=== PATIENT | female | born 1935 | race Caucasian/White ===

== ENCOUNTER → 2018-04-09 12:31 | Outpatient (CLI) | payer MEDICARE, OTHER, SELFPAY ==
[2018-04-09 12:54] LABS: Add Manual Diff / Slide Review NO; Basophils Percent Auto 0.7 % (0-2); Eosinophils Percent Auto 1.8 % (2-4); Hematocrit 41.1 % (36-46); Lymphocytes Percent Auto 25.3 % (25-40); Mean Corpuscular HGB Conc 34.1 % (30-36); Mean Corpuscular Hemoglobin 32.3 PG (26-34); Mean Corpuscular Volume 94.7 fL (80-100); Monocytes Percent Auto 6.1 % (3-14); Neutrophils Absolute Auto 3900 /uL (3000-5900); Neutrophils Percent Auto 66.1 % (50-75); Platelet Count 229 X10^3/uL (150-400); Red Blood Cell Count 4.34 X10^6/uL (4.0-5.2); Red Cell Distribution Width 13.9 % (11.6-14.8); White Blood Cell Count 5.9 X10^3/uL (4.5-11.0)
[2018-04-09 13:48] LABS: BUN Creatinine Ratio 21.4 (6-22); Blood Urea Nitrogen 15 mg/dL (7-17); Calcium 9.5 mg/dL (8.4-10.2); Carbon Dioxide 29 mmol/L (22-32); Chloride 98 mmol/L (98-107); Estimated Glomerular Filt Rate > 60.0 mL/min (>60); Glucose 124 mg/dL (80-110); HEMOLYSIS < 15 (0-50); Potassium 4.4 mmol/L (3.4-5.1); Sodium 140 mmol/L (137-145)
[2018-04-09 14:00] LABS: Free T3, Triiodothyronine Free 3.05 pg/mL (2.77-5.27); Free T4, Direct Thyroxine 1.31 ng/dL (0.78-2.19)
[2018-04-09 14:13] LABS: Thyroid Stimulating Hormone 3.37 uIU/mL (0.47-4.68)
== END ==
PROVIDERS: Family Provider Internal Medicine; Visit Provider Internal Medicine
DX: I10 Essential (primary) hypertension (principal); R53.83 Other fatigue; E03.9 Hypothyroidism, unspecified
CPT/HCPCS: 36415; 80048; 84439; 84443; 84481; 85025

== ENCOUNTER → 2018-10-31 09:01 | Outpatient (CLI) | payer MEDICARE, OTHER, SELFPAY ==
--- NOTE | 2018-10-31 | DI.MG.S_ITS ---
BILATERAL DIGITAL SCREENING MAMMOGRAM 3D/2D WITH CAD: 10/31/2018 CLINICAL: Routine screening. Family history of breast cancer. Comparison is made to exams dated: 07/24/2016 mammogram, 07/23/2011 mammogram, and 07/09/2010 mammogram - [facility]. The tissue of both breasts is heterogeneously dense. This may lower the sensitivity of mammography. Current study was also evaluated with a Computer Aided Detection (CAD) system. There is a benign biopsy clip in the left breast. There are mole markers on both breasts. No significant masses, calcifications, or other findings are seen in either breast. There has been no significant interval change. IMPRESSION: NEGATIVE There is no mammographic evidence of malignancy. A 1 year screening mammogram is recommended. This exam was interpreted at Station ID: [id number]. NOTE: For mammograms, a report in lay terms will be sent to the patient. Approximately 15% of breast malignancies will not be visualized mammographically. In the management of a palpable breast mass, a negative mammogram must not discourage biopsy of a clinically suspicious lesion. Electronically Signed By: Christiano carpio/toño:11/02/2018 17:59:21 copy to: JOSIAS WEBB letter sent: Normal Exam ACR BI-RADS Category 1: Negative [id number]
== END ==
PROVIDERS: PCP Internal Medicine; Visit Provider Internal Medicine
DX: Z12.31 Encounter for screening mammogram for malignant neoplasm of breast (principal); Z80.3 Family history of malignant neoplasm of breast
CPT/HCPCS: 77063; 77067

== ENCOUNTER → 2019-03-09 08:47 | Outpatient (CLI) | payer MEDICARE, OTHER, SELFPAY ==
--- NOTE | 2019-03-09 | DI.MRI.S_ITS ---
PROCEDURE: MR CERVICAL SPINE WO CON INDICATIONS: ABNORMAL NEUROLOGICAL EXAM TECHNIQUE: Noncontrast sagittal T1 spin echo and T2 fast spin echo, sagittal STIR, foraminal oblique sagittal T2 fast spin echo, and axial gradient echo or T2 fast spin echo through the cervical spine. COMPARISON: [facility], MR, MR HEAD/BRAIN WO CON, 03/09/2019, 9:10. [facility], CT, C-SPINE WITHOUT CONTRAST, 10/24/2008, 12:32. FINDINGS: Image quality: Diagnostic, with note made of motion artifact. Alignment and Curvature: There is normal bony alignment. Bone Marrow: Marrow demonstrates normal overall signal. Spinal Cord: Visualized spinal cord has normal size and signal. No cerebellar tonsillar herniation. Paraspinous Soft Tissues: No paravertebral masses. Prevertebral soft tissues are normal in thickness. C2-C3: No significant abnormality is seen. C3-C4: The disc height is well-preserved. Loss of disc signal is seen at this level. A mild degree of generalized disc osteophyte complex is seen. There is mild bilateral neural foraminal narrowing seen. No significant central canal narrowing is seen. C4-C5: The disc height is well-preserved. Loss of disc signal is seen at this level. There is a mild central disc protrusion seen. There is mild to moderate right-sided and moderate left-sided neural foraminal narrowing seen. Spig-fh-[id number] central canal narrowing is seen, with minimal mass effect upon the ventral spinal cord. C5-C6: Mild loss of disc height is seen. Loss of disc signal is seen. Mild to moderate disc osteophyte complex is seen. There is moderate left-sided and minimal right-sided neural foraminal narrowing seen. Minimal to mild central canal narrowing is seen. C6-C7: Mild loss of disc height is seen. Loss of disc signal is seen. A mild degree of generalized disc osteophyte complex is seen. There is moderate to severe left-sided and mild right-sided neural foraminal narrowing seen. No significant central canal narrowing is seen. C7-T1: No significant abnormality is seen. IMPRESSION: Multiple levels of cervical spine degenerative change are seen, including moderate to severe left-sided neural foraminal narrowing at C6-C7. Dictated by: Jed Newman M.D. on 03/09/2019 at 9:58 Approved by: Jed Newman M.D. on 03/09/2019 at 10:03
--- NOTE | 2019-03-09 | DI.MRI.S_ITS ---
PROCEDURE: MR HEAD/BRAIN WO CON INDICATIONS: ABNORMAL NEUROLOGICAL EXAM TECHNIQUE: Non-contrast axial T1 spin echo, axial T2 fast spin echo, sagittal and axial FLAIR, coronal T2 fast spin echo, axial gradient echo, axial diffusion and ADC through the brain. COMPARISON: [facility], MR, BRAIN WITH AND WITHOUT CONTRAS, 01/03/2009, 10:05. [facility], CT, HEAD WITHOUT CONTRAST, 12/03/2016, 13:39. [facility], MR, MR CERVICAL SPINE WO CON, 03/09/2019, 9:29. [facility], CT, HEAD WITHOUT CONTRAST, 01/02/2009, 4:59. FINDINGS: Image quality: Excellent. CSF spaces: Ventricles appear symmetric in size and shape. Basal cisterns are patent. No extra-axial fluid collections. Brain: Within the right parietal-occipital region, as on series 11 image 65, there is a 4 mm focus of restricted diffusion seen, which demonstrates associated low signal on ADC maps. No intracranial bleeds or mass effects. The previously described likely right-sided meningioma is not seen on this study that is performed without contrast. There is cerebral volume loss for age. There are periventricular and deep white matter chronic small vessel ischemic changes. Brainstem appears normal. No chronic ischemic insults. Normal intravascular flow voids are present. Skull and face: Calvarial bone marrow is normal in signal. Orbits are normal. Note is made of bilateral lens replacements. Sinuses: Sinuses and mastoids are clear. IMPRESSION: There is a 4 mm focus of acute or subacute infarction involving the right peritrigonal white matter within the right parietal occipital region. Relatively prominent brain parenchymal volume loss and chronic small vessel ischemic changes are seen. No findings of acute or subacute infarction can be seen. Dictated by: Jed Newman M.D. on 03/09/2019 at 9:53 Approved by: Jed Newman M.D. on 03/09/2019 at 9:58
== END ==
PROVIDERS: PCP Internal Medicine; Visit Provider Internal Medicine
DX: R29.90 Unspecified symptoms and signs involving the nervous system (principal); R26.89 Other abnormalities of gait and mobility; H57.12 Ocular pain, left eye; M47.812 Spondylosis without myelopathy or radiculopathy, cervical region; M48.02 Spinal stenosis, cervical region
CPT/HCPCS: 70551; 72141

== ENCOUNTER → 2019-03-25 11:39 | Outpatient (CLI) | payer MEDICARE, OTHER, SELFPAY ==
--- NOTE | 2019-03-25 | DI.US.S_ITS ---
PROCEDURE: US CAROTID DOPPLER BI INDICATIONS: CEREBRAL INFARCTION, UNSPECIFIED TECHNIQUE: Color and pulse Doppler interrogation was performed of both carotid systems, with image documentation and velocity measurements. COMPARISON: None. FINDINGS: Stenosis calculations are based on SRU (Society of Radiologists in Ultrasound) criteria. Right side: Brachial blood pressure: 176/100 mm Hg. Common carotid artery peak systolic velocity: 55 cm/sec. Internal carotid artery peak systolic velocity: 65 cm/sec. Internal carotid artery end diastolic velocity: 24 cm/sec. External carotid artery peak systolic velocity: 80 cm/sec. ICA/CCA peak systolic ratio: 1.2. Call scale imaging description: Mild scattered plaque. Percent internal carotid artery stenosis: Less than 50%. Vertebral artery: Flow direction is antegrade. Left side: Brachial blood pressure: 162/101 mm Hg. Common carotid artery peak systolic velocity: 54 cm/sec. Internal carotid artery peak systolic velocity: 83 cm/sec. Internal carotid artery end diastolic velocity: 29 cm/sec. External carotid artery peak systolic velocity: 75 cm/sec. ICA/CCA peak systolic ratio: 1.5. Call scale imaging description: Mild scattered plaque. Percent internal carotid artery stenosis: Less than 50%. Vertebral artery: Flow direction is antegrade. IMPRESSION: Stable less than 50% bilateral internal carotid artery stenosis. Hypertension at time of examination. Dictated by: Jason Jensen [facility] Interpreted: Nae Holguin MD on 03/25/2019 at 13:48 Approved by: Nae Holguin MD, PhD on 03/25/2019 at 14:26
== END ==
PROVIDERS: PCP Internal Medicine; Visit Provider Internal Medicine
DX: I63.9 Cerebral infarction, unspecified (principal); I65.23 Occlusion and stenosis of bilateral carotid arteries; R03.0 Elevated blood-pressure reading, without diagnosis of hypertension
CPT/HCPCS: 93880

== ENCOUNTER 2019-04-07 12:13 | Emergency (ER) | payer MEDICARE, OTHER, SELFPAY ==
[2019-04-07] VITALS (8 sets, daily range): BP systolic 118–192; BP diastolic 58–99; PULSE 56–76; RESP 16–20; TEMP 36.5; O2SAT 96–98; BMI 31.4
--- NOTE | 2019-04-07 12:23 | ED.GENADULT ---
HPI - General Adult General Chief complaint: Hypertension Stated complaint: weak, dizzy, htn Time Seen by Provider: 04/07/19 12:23 Source: patient and family () Mode of arrival: EMS Limitations: no limitations History of Present Illness HPI narrative: 83-year-old female comes to the emergency department with complaint of weakness and dizziness sudden onset about 30 minutes prior to arrival. Patient states she was standing she was cutting bread. She states that she felt like the room was sort of spinning. She felt like she might pass out. She did notice a tunnel vision or white needing. She sat down in the chair. It has been slowly improving. She denies any sudden severe headaches but she has had some mild headache on and off since it occurred. She was hypertensive for EMS in the 200/100 range. Patient denies any vision changes, she denies any issues with speech, lateralizing weakness or new numbness. Patient has not had any chest pain, no shortness of breath,, no chest pressure. No known vomiting. She states no diarrhea constipation or urinary symptoms. She states that she sort of felt dizzy but it did sort of seem like the room was spinning. She states her symptoms have been improving. She is feeling better but still feels ?off?. She had a MRI of her brain which did show a stroke on March 09 that showed right parietal occipital 4 mm focus. She also has bilateral carotid showed stable less than 50% bilateral ICA stenosis. Related Data Home Medications Medication Instructions Recorded Confirmed ASCORBIC ACID (#VITAMIN C) 500 - 1,000 mg PO QDAY #0 09/23/11 CHOLECALCIFEROL (VITAMIN D3) 5,000 units PO BID #0 06/21/13 [VITAMIN B 12] 1,000 mg PO QDAY #0 06/21/13 [lipo-cardia] #0 01/10/17 [turmeric] #0 01/10/17 [D-Trevor] #0 01/02/18 diltiazem HCl 30 mg PO DAILY 04/07/19 04/07/19 ipratropium bromide 1 spray INTRANASAL DIRECTED 04/07/19 04/07/19 levothyroxine 75 mcg PO DAILY 04/07/19 04/07/19 Previous Rx's Medication Instructions Recorded codeine-guaifenesin 5 ml PO QHS #60 ml 11/11/17 Allergies Allergy/AdvReac Type Severity Reaction Status Date / Time adhesive Allergy Mild RASH, Verified 04/07/19 12:34 SEVERE BLISTERS azithromycin Allergy Mild RASH Verified 04/07/19 12:34 bacitracin Allergy Mild RASH Verified 04/07/19 12:34 [From Neosporin ([id number])] cefpodoxime Allergy Mild RASH Verified 04/07/19 12:34 neomycin Allergy Mild RASH Verified 04/07/19 12:34 [From Neosporin ([id number])] polymyxin B Allergy Mild RASH Verified 04/07/19 12:34 [From Neosporin ([id number])] Sulfa (Sulfonamide Allergy Mild RASH Verified 04/07/19 12:34 Antibiotics) tetracycline Allergy Mild RASH, Verified 04/07/19 12:34 SYNCOPE benzonatate Allergy Unknown Verified 04/07/19 12:34 losartan [LOSARTAN] Allergy Unknown Verified 04/07/19 12:34 aspirin AdvReac Intermediate RECTAL Verified 04/07/19 12:34 BLEED levofloxacin AdvReac Intermediate HEEL PAIN Verified 04/07/19 12:34 AND TENDONTITIS carvedilol AdvReac Mild MUSCLE Verified 04/07/19 12:34 WEAKNESS ciprofloxacin AdvReac Mild HEEL PAIN Verified 04/07/19 12:34 metoprolol AdvReac Mild WEAK, Verified 04/07/19 12:34 NAUSEA Review of Systems Review of Systems ROS Unobtainable: All systems reviewed & are unremarkable except as noted in HPI and below Constitutional Denies chills, Denies fever(s), Reports headache(s) (Mild), Denies lethargy and Reports weakness Eyes Denies change in vision ENT Ears, Nose, Mouth, and Throat: Reports vertigo, Reports dizziness, Reports headache(s) (Mild), Denies disequilibrium and Denies other (Facial droop) Cardiovascular Denies chest pain, Denies chest pain at rest, Denies syncope, Denies edema, Reports lightheadedness, Denies palpitations, Denies dyspnea and Denies dyspnea on exertion Respiratory Denies chest congestion, Denies cough, Denies dyspnea and Denies dyspnea on exertion Gastrointestinal Gastrointestinal: Denies abdominal pain, Denies change in bowel habits, Denies diarrhea, Reports nausea and Denies vomiting Genitourinary Denies hematuria, Denies dysuria, Denies flank pain, Denies urinary incontinence, Denies urinary hesitancy and Denies urinary urgency Musculoskeletal Denies abnormal gait, Denies back pain, Denies numbness and Denies tingling Neurologic Reports as per HPI, Denies abnormal movements, Denies abnormal speech, Denies abnormal gait, Reports vertigo, Reports dizziness, Denies syncope, Reports headache(s) (Mild), Denies focal weakness, Denies numbness, Denies sensory deficit, Denies tingling, Denies disequilibrium and Reports weakness Endocrine Denies palpitations PFSH Medical History Hypertension (Acute) Social History Smoking Status: Never smoker Social History Smoking Status: Never smoker Exam Narrative Exam Narrative: GEN: well nourished, well appearing female, alert and oriented x 3, patient appears to be in mild distress. HEENT: Atraumatic, pupils are equal round reactive to light, extraocular movements are intact, nares are clear, TMs are clear with no fluid, there is no conjunctival pallor. Throat is clear without any exudates, erythema, tonsillar enlargement or uvular deviation HEART: Regular rate and rhythm without murmur, clicks, rubs. pulses are equal in upper and lower extremities LUNGS:Lungs clear to auscultation, no wheezes, rales, crackles, chest moves symmetrically ABD:bowel sounds normal, soft, non-tender, no guarding, rebound, rigidity, no masses noted, no hepatosplenomegaly :No CVA tenderness MSCL: Non-tender, no muscle atrophy, muscles strength 5/5 upper and lower extremities, full range of motion. NEURO:CN 2-12 intact, sensation normal, reflexes 2/4 upper and lower extremities. finger nose finger test normal, heel noble test normal, romberg normal Initial Vital Signs Initial Vital Signs: Vital Signs Temperature 97.7 F 04/07/19 12:22 Pulse Rate 76 04/07/19 12:22 Respiratory Rate 20 04/07/19 12:22 Blood Pressure 192/99 H 04/07/19 12:22 Pulse Oximetry 98 04/07/19 12:22 Course Orders Ordered: ED Orders 04/07/19 12:30 Urine Microscopic Stat 04/07/19 12:32 CT head/brain wo con Stat XR chest 1V Stat EKG-12 Lead Stat 04/07/19 12:52 Complete Blood Count AUTO DIFF Stat Comprehensive Metabolic Panel Stat Partial Thromboplastin Time Stat Prothrombin Time INR Stat Troponin I Stat Discontinued Medications Sodium Chloride (Normal Saline 0.9%) 1,000 mls @ 150 mls/hr IV CONT LELE Last Infusion: 04/07/19 16:39 Dose: 0 mls/hr Admin: 04/07/19 12:59 Dose: 150 mls/hr Nitroglycerin (Nitrostat) 0.4 mg SL NOW ONE Stop: 04/07/19 12:36 Last Admin: 04/07/19 12:58 Dose: 0.4 mg Vital Signs - 8 hr 04/07/19 12:22 04/07/19 12:58 04/07/19 13:30 Temperature 97.7 F Pulse Rate 76 67 59 L Respiratory Rate 20 16 Blood Pressure 192/99 H 184/84 H Blood Pressure [Right Arm] 143/75 H Pulse Oximetry 98 96 04/07/19 14:00 04/07/19 14:30 04/07/19 15:00 Temperature Pulse Rate 56 L 56 L 57 L Respiratory Rate 17 17 17 Blood Pressure Blood Pressure [Right Arm] 119/89 130/58 L 118/59 L Pulse Oximetry 98 96 97 04/07/19 15:30 04/07/19 16:42 Temperature Pulse Rate 57 L 60 Respiratory Rate 18 18 Blood Pressure Blood Pressure [Right Arm] 127/62 130/64 Pulse Oximetry 98 98 Medical Decision Making Lab Data Lab results reviewed: Yes I reviewed the patient's lab results. Result diagrams: 04/07/19 12:52 04/07/19 12:52 Lab Results 04/07/19 04/07/19 04/07/19 Range/Units 12:30 12:52 12:52 WBC 5.2 (4.5-11.0) X10^3/uL RBC 4.35 (4.0-5.2) X10^6/uL Hgb 14.2 (12.0-16.0) g/dL Hct 40.9 (36-46) % MCV 94.1 (80-100) fL MCH 32.7 (26-34) PG MCHC 34.8 (30-36) % RDW 13.8 (11.6-14.8) % Plt Count 248 (150-400) X10^3/uL Neut % (Auto) 59.1 (50-75) % Lymph % (Auto) 27.3 (25-40) % [place] % (Auto) 8.4 (3-14) % Eos % (Auto) 4.3 H (2-4) % Baso % (Auto) 0.9 (0-2) % Neut # (Auto) 3100 (9897-3169) /uL Lymph # (Auto) 1400 (5395-4461) /uL [place] # (Auto) 400 (0-900) /uL Eos # (Auto) 200 (0-450) /uL Baso # (Auto) 0 (0-100) /uL PT 12.4 (10.1-12.7) SECONDS INR 1.1 (0.9-1.3) APTT 34 (26.4-36.2) SECONDS Sodium (137-145) mmol/L Potassium (3.4-5.1) mmol/L Chloride (98-107) mmol/L Carbon Dioxide (22-32) mmol/L BUN (7-17) mg/dL Creatinine (0.52-1.04) mg/dL Estimated GFR (>60) mL/min BUN/Creatinine Ratio (6-22) Glucose (80-110) mg/dL Calcium (8.4-10.2) mg/dL Total Bilirubin (0.2-1.3) mg/dL AST (14-36) IU/L ALT (9-52) IU/L Alkaline Phosphatase (38-126) U/L Troponin I (0.01-0.034) ng/mL Total Protein (6.3-8.2) g/dL Albumin (3.5-5.0) g/dL Globulin (1.7-4.1) g/dL Albumin/Globulin Ratio (1.0-2.8) Urine RBC None seen (0-5/HPF) Urine WBC 1-5/hpf (0-5/HPF) Ur Squamous Epith Cells 5-10 /hpf H (0-5/HPF) Urine Bacteria Few (2-10) H (None) Ur Culture Indicated? Culture not indicate Micro UA Comment 04/07/19 Range/Units 12:52 WBC (4.5-11.0) X10^3/uL RBC (4.0-5.2) X10^6/uL Hgb (12.0-16.0) g/dL Hct (36-46) % MCV (80-100) fL MCH (26-34) PG MCHC (30-36) % RDW (11.6-14.8) % Plt Count (150-400) X10^3/uL Neut % (Auto) (50-75) % Lymph % (Auto) (25-40) % [place] % (Auto) (3-14) % Eos % (Auto) (2-4) % Baso % (Auto) (0-2) % Neut # (Auto) (1399-1719) /uL Lymph # (Auto) (9321-2823) /uL [place] # (Auto) (0-900) /uL Eos # (Auto) (0-450) /uL Baso # (Auto) (0-100) /uL PT (10.1-12.7) SECONDS INR (0.9-1.3) APTT (26.4-36.2) SECONDS Sodium 138 (137-145) mmol/L Potassium 3.7 (3.4-5.1) mmol/L Chloride 100 (98-107) mmol/L Carbon Dioxide 31 (22-32) mmol/L BUN 16 (7-17) mg/dL Creatinine 0.70 (0.52-1.04) mg/dL Estimated GFR > 60.0 (>60) mL/min BUN/Creatinine Ratio 22.9 H (6-22) Glucose 110 (80-110) mg/dL Calcium 9.8 (8.4-10.2) mg/dL Total Bilirubin 0.9 (0.2-1.3) mg/dL AST 29 (14-36) IU/L ALT 20 (9-52) IU/L Alkaline Phosphatase 78 (38-126) U/L Troponin I < 0.012 (0.01-0.034) ng/mL Total Protein 8.2 (6.3-8.2) g/dL Albumin 4.6 (3.5-5.0) g/dL Globulin 3.6 (1.7-4.1) g/dL Albumin/Globulin Ratio 1.3 (1.0-2.8) Urine RBC (0-5/HPF) Urine WBC (0-5/HPF) Ur Squamous Epith Cells (0-5/HPF) Urine Bacteria (None) Ur Culture Indicated? Micro UA Comment Urine Dip Bedside Urine Glucose Negative Bedside Urine Bilirubin - Negative Bedside Urine Ketone - Negative Urine Specific [place] 1.015 Bedside Urine Occult Blood - Negative Bedside Urine pH 7.5 Bedside Urine Protein - Negative Bedside Urine Urobilinogen - Negative Bedside Urine Nitrite - Negative Bedside Urine Leukocytes ++ 125 Esterase Point of care testing: Urine Dip Bedside Urine Glucose Negative Bedside Urine Bilirubin - Negative Bedside Urine Ketone - Negative Urine Specific [place] 1.015 Bedside Urine Occult Blood - Negative Bedside Urine pH 7.5 Bedside Urine Protein - Negative Bedside Urine Urobilinogen - Negative Bedside Urine Nitrite - Negative Bedside Urine Leukocytes ++ [address] scan - head: Radiologist's impression: [address] [address] [address] Scan Report Signed Patient: Cecily Bain IMR#: [id number] : [id number]:[id number] Age/Sex: 83 / FDate of Service: 04/07/19 Loc: ED Accession Number: [id number] Procedure: CT head/brain wo con Ordering Provider: Sharyn Kendall D.O. PROCEDURE: CT HEAD/BRAIN WO CON INDICATIONS: vertigo, sudden onset, prior CVA's improving. TECHNIQUE: Noncontrast 4.5 mm thick angled axial sections acquired from the foramen magnum to the vertex, with coronal and sagittal reformats. For radiation dose reduction, the following was used: automated exposure control, adjustment of mA and/or kV according to patient size. COMPARISON: [facility], CT, HEAD WITHOUT CONTRAST, 12/03/2016, 13:39. FINDINGS: Image quality: Excellent. CSF spaces: Basal cisterns are patent. No extra-axial fluid collections. The ventricles are symmetric in size and shape. Brain: No intracranial bleeds or masses. There is cerebral volume loss for age, with resultant ventricular and sulcal prominence. There are periventricular and deep white matter chronic small vessel ischemic changes. There is intracranial internal carotid artery atherosclerosis. Skull and face: Calvarium and visualized facial bones appear intact, without suspicious lesions. Sinuses: Visualized sinuses and mastoids are clear. IMPRESSION: No CT evidence of acute intracranial pathology. Extensive periventricular white matter microangiopathic changes and diffuse atrophy. Dictated by: Elio Martinez M.D. on 04/07/2019 at 13:23 Approved by: Elio Martinez M.D. on 04/07/2019 at 13:38 Chest x-ray: Radiologist's impression: Cecily Bain I 83 F [address] [address] XRay Report Signed Patient: Cecily Bain IMR#: [id number] : [id number]:[id number] Age/Sex: 83 / FDate of Service: 04/07/19 Loc: ED Accession Number: [id number] Procedure: XR chest 1V Ordering Provider: Sharyn Kendall D.O. PROCEDURE: XR CHEST 1V INDICATIONS: vertigo symptoms acute onset. TECHNIQUE: One view of the chest was acquired. COMPARISON: [facility], , CHEST 2 VIEW, 12/06/2016, 12:28. FINDINGS: Surgical changes and devices: None. Lungs and pleura: Lungs are clear. No pleural effusions or pneumothorax. Mediastinum: Mediastinal contours appear normal. Heart size is normal. Bones and chest wall: No suspicious bony lesions. Overlying soft tissues appear unremarkable. IMPRESSION: No evidence acute pulmonary process. Dictated by: Perry Hudson M.D. on 04/07/2019 at 12:52 Approved by: Perry Hudson M.D. on 04/07/2019 at 12:52 ECG Data Attestation: I personally reviewed and interpreted this ECG as follows: Prior ECG tracings: available for review Interpretation: Sinus rhythm, right bundle branch block, left anterior fascicular block. Rate is 68 OR 108 QRS of 171 QTC of 471. Patient's old EKG from 2014 does not show a right bundle branch block. MDM Narrative Medical decision making narrative: Patient's symptoms have resolved. She ambulated to the bathroom without any issue. Lab work does not show any acute abnormalities, head CT did not show any bleed. Chest x-ray does not show any major changes. Patient does not have any changes on her NIH scale. She was hypertensive initially was given 1 dose of nitro her blood pressure has resolved and the improved patient I discussed she could possibly follow the ENT she had some symptoms that were consistent with vertigo. I do not think she is having an acute stroke today. Discussed with patient she feels comfortable following up she feels much better at this time. Discharge Plan Departure Patient Disposition: Home Clinical Impression: Dizziness Discharge Date/Time: 04/07/19 16:45 Interventions: ED Discharge Assessment Last Done: 04/07/19 16:43 Instructions: DI for Dizziness-Nonvertigo Activity Restrictions/Additional Instructions: Follow-up with your primary care physician next 24-48 hours. Call for an appointment. Continue home medications as prescribed. I recommend that you follow up with Neurology and discuss with your physician to see if they can move your appointment sooner. I would also recommend discussing with ENT for any vertigo symptoms they may be helpful for delineating the source of your symptoms. Return to the emergency department for fevers greater 100.4, passing out, suddenly worsening symptoms, new vision changes, new weakness, numbness or difficulty with speech new chest pain or shortness of breath or persistent vomiting or other new or concerning symptoms. Prescriptions: No Action ASCORBIC ACID (#VITAMIN C) 500 - 1,000 mg PO QDAY Qty: 0 RF: 0 CHOLECALCIFEROL (VITAMIN D3) 5,000 units PO BID Qty: 0 RF: 0 [VITAMIN B 12] 1,000 mg PO QDAY Qty: 0 RF: 0 [lipo-cardia] Qty: 0 RF: 0 [turmeric] Qty: 0 RF: 0 codeine-guaifenesin 100 MG/10 MG liquid 5 ml PO QHS Qty: 60 RF: 0 [D-Trevor] Qty: 0 RF: 0 levothyroxine 75 mcg tablet 75 mcg PO DAILY RF: 0 diltiazem HCl 30 mg tablet 30 mg PO DAILY RF: 0 ipratropium bromide 42 mcg (0.06 %) spray,non-aerosol 1 spray Intranasal DIRECTED RF: 0 Referrals: Vinicoi Mancia MD [Physician] - Kailee Garibay MD [Primary Care Provider] -
--- NOTE | 2019-04-07 12:32 | DI.RAD.S_ITS ---
PROCEDURE: XR CHEST 1V INDICATIONS: vertigo symptoms acute onset. TECHNIQUE: One view of the chest was acquired. COMPARISON: [facility], , CHEST 2 VIEW, 12/06/2016, 12:28. FINDINGS: Surgical changes and devices: None. Lungs and pleura: Lungs are clear. No pleural effusions or pneumothorax. Mediastinum: Mediastinal contours appear normal. Heart size is normal. Bones and chest wall: No suspicious bony lesions. Overlying soft tissues appear unremarkable. IMPRESSION: No evidence acute pulmonary process. Dictated by: Perry Hudson M.D. on 04/07/2019 at 12:52 Approved by: Perry Hudson M.D. on 04/07/2019 at 12:52
--- NOTE | 2019-04-07 12:32 | DI.CT.S_ITS ---
PROCEDURE: CT HEAD/BRAIN WO CON INDICATIONS: vertigo, sudden onset, prior CVA's improving. TECHNIQUE: Noncontrast 4.5 mm thick angled axial sections acquired from the foramen magnum to the vertex, with coronal and sagittal reformats. For radiation dose reduction, the following was used: automated exposure control, adjustment of mA and/or kV according to patient size. COMPARISON: [facility], CT, HEAD WITHOUT CONTRAST, 12/03/2016, 13:39. FINDINGS: Image quality: Excellent. CSF spaces: Basal cisterns are patent. No extra-axial fluid collections. The ventricles are symmetric in size and shape. Brain: No intracranial bleeds or masses. There is cerebral volume loss for age, with resultant ventricular and sulcal prominence. There are periventricular and deep white matter chronic small vessel ischemic changes. There is intracranial internal carotid artery atherosclerosis. Skull and face: Calvarium and visualized facial bones appear intact, without suspicious lesions. Sinuses: Visualized sinuses and mastoids are clear. IMPRESSION: No CT evidence of acute intracranial pathology. Extensive periventricular white matter microangiopathic changes and diffuse atrophy. Dictated by: Elio Martinez M.D. on 04/07/2019 at 13:23 Approved by: Elio Martinez M.D. on 04/07/2019 at 13:38
[2019-04-07 12:45] LABS: RBC Urine None Seen (0-5/HPF)
[2019-04-07] MEDS: NITROGLYCERIN 0.4 MG SL TAB SL (12:58)
[2019-04-07] MEDS: SODIUM CHLORIDE 0.9% 1,000 ML 150 ML IV (12:59)
[2019-04-07 13:02] LABS: Add Manual Diff / Slide Review NO; Basophils Absolute Auto 0 /uL (0-100); Basophils Percent Auto 0.9 % (0-2); Eosinophils Absolute Auto 200 /uL (0-450); Eosinophils Percent Auto 4.3 % (2-4); Hematocrit 40.9 % (36-46); Hemoglobin 14.2 g/dL (12.0-16.0); Lymphocytes Absolute Auto 1400 /uL (1100-4500); Lymphocytes Percent Auto 27.3 % (25-40); Mean Corpuscular HGB Conc 34.8 % (30-36); Mean Corpuscular Hemoglobin 32.7 PG (26-34); Mean Corpuscular Volume 94.1 fL (80-100); Monocytes Absolute Auto 400 /uL (0-900); Monocytes Percent Auto 8.4 % (3-14); Neutrophils Absolute Auto 3100 /uL (1500-7000); Neutrophils Percent Auto 59.1 % (50-75); Platelet Count 248 X10^3/uL (150-400); Red Blood Cell Count 4.35 X10^6/uL (4.0-5.2); Red Cell Distribution Width 13.8 % (11.6-14.8); White Blood Cell Count 5.2 X10^3/uL (4.5-11.0)
[2019-04-07 13:11] LABS: INR 1.1 (0.9-1.3); Prothrombin Time 12.4 SECONDS (10.1-12.7)
[2019-04-07 13:14] LABS: PTT Partial Thromboplastin Tim 34 SECONDS (26.4-36.2)
[2019-04-07 13:15] LABS: Alanine Aminotransferase 20 IU/L (9-52); Albumin 4.6 g/dL (3.5-5.0); Albumin Globulin Ratio 1.3 (1.0-2.8); Alkaline Phosphatase 78 U/L (38-126); Aspartate Aminotransferase 29 IU/L (14-36); BUN Creatinine Ratio 22.9 (6-22); Bilirubin Total 0.9 mg/dL (0.2-1.3); Blood Urea Nitrogen 16 mg/dL (7-17); Calcium 9.8 mg/dL (8.4-10.2); Carbon Dioxide 31 mmol/L (22-32); Chloride 100 mmol/L (98-107); Estimated Glomerular Filt Rate > 60.0 mL/min (>60); Globulin 3.6 g/dL (1.7-4.1); Glucose 110 mg/dL (80-110); HEMOLYSIS < 15 (0-50); Potassium 3.7 mmol/L (3.4-5.1); Sodium 138 mmol/L (137-145); Total Protein 8.2 g/dL (6.3-8.2)
[2019-04-07 13:16] LABS: Bacteria Urine Few (2-10); Squamous Epithelial Cell Urine 5-10 /HPF (0-5/HPF); WBC Urine 1-5/HPF (0-5/HPF)
[2019-04-07 13:26] LABS: Troponin I < 0.012 ng/mL (0.01-0.034)
== END 2019-04-07 16:45 | disposition home or self-care (01) ==
PROVIDERS: Emergency Provider Emergency Medicine; PCP Internal Medicine
DX: R42 Dizziness and giddiness (principal); R53.1 Weakness; I10 Essential (primary) hypertension; R51 Headache; Z86.73 Personal history of transient ischemic attack (TIA), and cerebral infarction without residual deficits
CPT/HCPCS: 36591; 70450; 71045; 80053; 81003; 81015; 84484; 85025; 85610; 85730; 93005; 93041; 96360; 96361; 99285

== ENCOUNTER → 2019-04-21 07:41 | Outpatient (CLI) | payer MEDICARE, OTHER, SELFPAY ==
--- NOTE | 2019-04-21 | DI.MRI.S_ITS ---
PROCEDURE: MR ANGIO HEAD WO CON INDICATIONS: HO CVA TECHNIQUE: Noncontrast axial 3-D [id number] MR angiogram, with 3-dimensional maximum intensity projection (MIP) reformats of the internal carotid arteries and posterior circulation then performed. COMPARISON: None. FINDINGS: Image quality: Excellent. Anterior circulation: Intracranial internal carotid arteries demonstrate normal size and intraluminal flow signal. The flow within the paired anterior cerebral arteries is normal and symmetric. The flow within the middle cerebral arteries is normal and symmetric. The anterior communicating artery is seen. No stenoses, occlusions, or aneurysms. Posterior circulation: Visualized portions of the vertebral arteries demonstrate normal caliber, and join to form a normal appearing basilar artery. The flow within the posterior cerebral arteries is normal and symmetric. No stenoses, occlusions, or aneurysms. IMPRESSION: No vascular occlusion, vascular stenosis, vascular dissection or aneurysm. Dictated by: Nae Holguin MD, PhD on 04/21/2019 at 10:55 Approved by: Nae Holguin MD, PhD on 04/21/2019 at 11:02
--- NOTE | 2019-04-21 | DI.MRI.S_ITS ---
PROCEDURE: MR ANGIO NECK W CON INDICATIONS: HO CVA TECHNIQUE: Axial and sagittal TruFISP through the neck. Coronal dynamic MRA after the administration of contrast in the arterial and venous phases, with rotating 3-dimensional maximum intensity projection (MIP) reformats constructed from subtraction images. COMPARISON: None. FINDINGS: Image quality: Excellent. Carotid system: Great vessels demonstrate a conventional anatomy as they arise from the aortic arch. The origins of the common carotid arteries appear normal. The calibers and courses of the common carotid arteries are likewise normal. The carotid bifurcations appear normal bilaterally. The internal carotid arteries are widely patent up to the [place] of [place]. Posterior circulation: The origins of the vertebral arteries are unremarkable. The more superior portions of the vertebral arteries demonstrate normal course and caliber. Vertebral arteries join to form a normal appearing basilar artery. Miscellaneous: Subclavian arteries are patent throughout. Pre-contrast images through the neck demonstrate no soft tissue abnormalities. IMPRESSION: Normal examination without evidence of vascular occlusion, vascular stenosis or vascular dissection. Any quantitative measurements of stenosis were performed using NASCET criteria. Dictated by: Nae Holguin MD, PhD on 04/21/2019 at 11:41 Approved by: Nae Holguin MD, PhD on 04/21/2019 at 11:42
== END ==
PROVIDERS: PCP Internal Medicine; Visit Provider Internal Medicine
DX: Z09 Encounter for follow-up examination after completed treatment for conditions other than malignant neoplasm (principal); Z86.73 Personal history of transient ischemic attack (TIA), and cerebral infarction without residual deficits
CPT/HCPCS: 70544; 70548; A9579

== ENCOUNTER → 2019-05-27 07:04 | Outpatient (CLI) | payer MEDICARE, OTHER, SELFPAY ==
--- NOTE | 2019-05-27 | DI.ECHO.S_ITS ---
[place] +---------+ [facility] +---------+ : : [address] : : : : [id number] : : : : Phone: [phone]+ Echocardiogram Report + + :Name: MARIA G CAMARGO I Study Date: 05/27/2019 Height: 66 in : :[facility] Exam Location: [facility] Weight: 190 lb : : Gender: Female BSA: 2.0 m2 : :: 1935 Age: 83 yrs BP: 140/80 mmHg: :Reason For Study: Stroke : : Performed By: Klaudia Page : :Referring: MINISTERIO TREJO : + + Interpretation Summary 1) Mildly enlarged left ventricle with low normal systolic function (EF 50- 55%). 2) There are no obvious focal wall motion abnormalities noted but poor endocardial definition reduces the sensitivity for the detection of such. 3) Normal right ventricular size and function. 4) No significant valvular abnormalities. 5) Injection of contrast documented no interatrial shunt. 6) Compared to the Echo done 12/20/2016, LV is dilated as above and EF has decreased from 60-65% to 50-55% on this study. Procedure: A two-dimensional transthoracic echocardiogram with color flow and Doppler was performed. The study quality was technically adequate. Comparison is made with the echocardiogram of 12/20/2016. A saline contrast injection was performed to assess for cardiac shunting. The subcostal views were difficult to obtain and are suboptimal in quality. The patient was in normal sinus rhythm during the exam. Left Ventricle: The left ventricle is mildly dilated. There is normal left ventricular wall thickness. The ejection fraction is estimated to be 50-55%. Left ventricular systolic function is low normal. There are no obvious focal wall motion abnormalities noted but poor endocardial definition reduces the sensitivity for the detection of such. Right Ventricle: The right ventricle is normal in size and function. Atria: The left atrial size is normal. The right atrium is severely dilated. There is no Doppler evidence for an interatrial shunt. Injection of contrast documented no interatrial shunt. Mitral Valve: The mitral valve leaflets are slightly calcified. There is mild mitral annular calcification. There is trace mitral regurgitation. Aortic Valve: The aortic valve is trileaflet. The aortic valve opens well. There is trace aortic regurgitation. Tricuspid Valve: The tricuspid valve is normal in structure and function. There is trace tricuspid regurgitation. Pulmonary artery pressures cannot be estimated because of the lack of a measurable TR jet velocity. Pulmonic Valve: The pulmonic valve is not well visualized. There is a trace or physiologic amount of pulmonic regurgitation. Great Vessels: The aortic root is normal size. The ascending aorta is at the upper limits of normal in size. The pulmonary is not well visualized. The inferior vena cava was not visualized. Pericardium/ Pleura There is no pericardial effusion. There is no pleural effusion. MMode/2D Measurements & Calculations LVIDd: 5.3 cm Ao root diam: 3.7 cm LVIDs: 3.8 cm asc Aorta Diam: 3.6 cm FS: 29.0 % EPSS: 1.1 cm IVSd: 0.99 cm LVPWd: 0.72 cm LV ahmadi. diameter/BSA (cm/m^2): 2.7 LV sys. diameter/BSA (cm/m^2): 1.9 LA A2 area: 17.2 cm2 RA long axis: 5.0 cm LA A4 area: 17.7 cm2 RA area: 23.1 cm2 LA length (vol): 4.5 cm RA vol: 91.0 ml LA vol: 57.4 ml RA : 46.5 ml/m2 LA vol index: 29.3 ml/m2 RVD1 (basal): 3.0 cm Doppler Measurements & Calculations Ao V2 max: 101.5 cm/sec LVOT Max Bryan: 68.3 cm/sec Ao V2 mean: 77.8 cm/sec LV V1 max P.9 mmHg Ao max P.1 mmHg LV V1 VTI: 15.1 cm Ao mean P.6 mmHg sev ratio: 0.73 Ao V2 VTI: 20.7 cm MV E max bryan: 35.6 cm/sec TR max bryan: 198.9 cm/sec MV A max bryan: 83.1 cm/sec TR max P.8 mmHg MV E/A: 0.43 PA V2 max: 49.4 cm/sec Med Peak E' Bryan: 3.2 cm/sec PA V2 mean: 35.9 cm/sec E/E' med: 11.1 PA mean P.56 mmHg Lat Peak E' Bryan: 3.9 cm/sec PA Accel Time: 0.14 sec E/E' lat: 9.1 E/e' average: 10.1 MV dec time: 0.49 sec MV P1/2t: 144.5 msec MV P1/2t max bryan: 36.8 cm/sec MVA(P1/2t): 1.5 cm2 Reading Physician:10:10 AM
== END ==
PROVIDERS: PCP Internal Medicine; Visit Provider Psychiatry & Neurology Neurology
DX: R26.89 Other abnormalities of gait and mobility (principal); Z86.73 Personal history of transient ischemic attack (TIA), and cerebral infarction without residual deficits
CPT/HCPCS: 93306

== ENCOUNTER → 2019-07-02 15:27 | Outpatient (CLI) | payer MEDICARE, OTHER, SELFPAY ==
--- NOTE | 2019-07-02 | DI.US.S_ITS ---
PROCEDURE: US PERIPH VENOUS LOW EXTREM RT INDICATIONS: RIGHT LEG EDEMA TECHNIQUE: Real-time imaging, as well as color and pulse Doppler interrogation, were performed of the lower extremity deep veins from the inguinal ligament to the popliteal fossa. COMPARISON: None. FINDINGS: The common femoral, femoral and popliteal veins are normally compressible, and free of intraluminal thrombus. Color and pulse Doppler demonstrate normal phasic intraluminal flow. There is normal augmentation response to distal compression maneuver. IMPRESSION: No evidence of deep vein thrombosis of the right lower extremity. Dictated by: Rosendo Mobley M.D. on 07/02/2019 at 15:37 Approved by: Rosendo Mobley M.D. on 07/02/2019 at 15:41
== END ==
PROVIDERS: PCP Internal Medicine; Visit Provider Internal Medicine
DX: R60.0 Localized edema (principal)
CPT/HCPCS: 93971

== ENCOUNTER → 2019-07-09 09:31 | Outpatient (CLI) | payer MEDICARE, OTHER, SELFPAY ==
[2019-07-09 10:55] LABS: Alanine Aminotransferase 19 IU/L (9-52); Albumin 4.3 g/dL (3.5-5.0); Albumin Globulin Ratio 1.3 (1.0-2.8); Alkaline Phosphatase 75 U/L (38-126); Aspartate Aminotransferase 29 IU/L (14-36); Bilirubin Total 1.2 mg/dL (0.2-1.3); Blood Urea Nitrogen 12 mg/dL (7-17); Calcium 9.1 mg/dL (8.4-10.2); Carbon Dioxide 25 mmol/L (22-32); Chloride 102 mmol/L (98-107); Cholesterol 232 mg/dL (140-199); Estimated Glomerular Filt Rate > 60.0 mL/min (>60); Globulin 3.4 g/dL (1.7-4.1); Glucose 109 mg/dL (80-110); HDL Cholesterol 62 mg/dL (40-60); HEMOLYSIS < 15 (0-50); LDL Cholesterol Calculated 150 mg/dL (<100); Potassium 3.9 mmol/L (3.4-5.1); Sodium 138 mmol/L (137-145); Total Protein 7.7 g/dL (6.3-8.2); Triglycerides 98 mg/dL (35-150)
== END ==
PROVIDERS: PCP Internal Medicine; Visit Provider Internal Medicine
DX: E78.5 Hyperlipidemia, unspecified (principal); I10 Essential (primary) hypertension
CPT/HCPCS: 36415; 80053; 80061

== ENCOUNTER → 2019-08-24 07:50 | Outpatient (CLI) | payer MEDICARE, OTHER, SELFPAY ==
[2019-08-24 09:08] LABS: Alanine Aminotransferase 21 IU/L (9-52); Albumin 4.4 g/dL (3.5-5.0); Albumin Globulin Ratio 1.4 (1.0-2.8); Alkaline Phosphatase 78 U/L (38-126); Aspartate Aminotransferase 30 IU/L (14-36); BUN Creatinine Ratio 21.4 (6-22); Bilirubin Total 0.9 mg/dL (0.2-1.3); Blood Urea Nitrogen 15 mg/dL (7-17); Calcium 9.2 mg/dL (8.4-10.2); Carbon Dioxide 29 mmol/L (22-32); Chloride 99 mmol/L (98-107); Cholesterol 230 mg/dL (140-199); Estimated Glomerular Filt Rate > 60.0 mL/min (>60); Globulin 3.1 g/dL (1.7-4.1); Glucose 111 mg/dL (80-110); HDL Cholesterol 69 mg/dL (40-60); HEMOLYSIS < 15 (0-50); LDL Cholesterol Calculated 142 mg/dL (<100); Potassium 4.1 mmol/L (3.4-5.1); Sodium 137 mmol/L (137-145); Total Protein 7.5 g/dL (6.3-8.2); Triglycerides 96 mg/dL (35-150)
== END ==
PROVIDERS: PCP Internal Medicine; Visit Provider Internal Medicine
DX: I10 Essential (primary) hypertension (principal); E78.5 Hyperlipidemia, unspecified
CPT/HCPCS: 36415; 80053; 80061

== ENCOUNTER → 2019-08-27 10:15 | Outpatient (CLI) | payer MEDICARE, OTHER, SELFPAY ==
[2019-08-27 11:44] LABS: Hemoglobin 14.4 g/dL (12.0-16.0); Mean Corpuscular HGB Conc 34.3 % (30-36); Mean Corpuscular Hemoglobin 32.5 PG (26-34); Mean Corpuscular Volume 94.7 fL (80-100); Red Blood Cell Count 4.44 X10^6/uL (4.0-5.2); Red Cell Distribution Width 14.1 % (11.6-14.8)
[2019-08-27 11:46] LABS: Add Manual Diff / Slide Review YES; Platelet Count 254 X10^3/uL (150-400); White Blood Cell Count 10.5 X10^3/uL (4.5-11.0)
[2019-08-27 11:49] LABS: Neutrophils Absolute Manual 6615 /uL (3000-5900); Total Cells Counted 100
[2019-08-27 11:50] LABS: RBC Morphology Normal Morphology
[2019-08-27 11:57] LABS: HEMOLYSIS < 15 (0-50); Iron 106 ug/dL (37-170)
[2019-08-27 12:08] LABS: Percent Iron Saturation 38 % (15-50); Total Iron Binding Capacity 276 ug/dL (265-497); Transferrin 229 mg/dL (206-381)
[2019-08-27 12:30] LABS: Thyroid Stimulating Hormone 3.42 uIU/mL (0.47-4.68)
[2019-08-27 13:05] LABS: Folate > 20.0 ng/mL (2.76-20.0)
== END ==
PROVIDERS: PCP Internal Medicine; Visit Provider Internal Medicine
DX: R53.83 Other fatigue (principal)
CPT/HCPCS: 36415; 82746; 83540; 83550; 84443; 85025

== ENCOUNTER 2019-09-28 05:55 | Emergency (ER) | payer MEDICARE, OTHER, SELFPAY ==
[2019-09-28 06:02] VITALS: BP 162/76; PULSE 67; RESP 17; TEMP 36.6; O2SAT 99; BMI 30.2
--- NOTE | 2019-09-28 06:07 | DI.CT.S_ITS ---
PROCEDURE: CT HEAD/BRAIN WO CON INDICATIONS: fall with head injury TECHNIQUE: Noncontrast 4.5 mm thick angled axial sections acquired from the foramen magnum to the vertex, with coronal and sagittal reformats. For radiation dose reduction, the following was used: automated exposure control, adjustment of mA and/or kV according to patient size. COMPARISON: [facility], CT, CT HEAD/BRAIN WO CON, 04/07/2019, 13:05. FINDINGS: Image quality: Excellent. CSF spaces: Basal cisterns are patent. No extra-axial fluid collections. The ventricles are symmetric in size and shape. Brain: No intracranial bleeds or masses. There is cerebral volume loss for age, with resultant ventricular and sulcal prominence. There are periventricular and deep white matter chronic small vessel ischemic changes. There is intracranial internal carotid artery atherosclerosis. Skull and face: Calvarium and visualized facial bones appear intact, without suspicious lesions. Sinuses: Small mucous retention cyst versus polyp noted in the right sphenoid sinus. The mastoids are clear. IMPRESSION: No acute intracranial disease process. Dictated by: Nae Holguin MD, PhD on 09/28/2019 at 7:26 Approved by: Nae Holguin MD, PhD on 09/28/2019 at 7:27
--- NOTE | 2019-09-28 06:10 | ED.DIZZY ---
HPI - Dizziness <Slim Navarro, - Last Filed: 09/29/19 00:59> General Chief Complaint: Dizziness Stated Complaint: Fall Time Seen by Provider: 09/28/19 05:56 Source: patient and EMS Mode of arrival: EMS Limitations: no limitations History of Present Illness HPI Narrative: 83-year-old female nonsmoker with history of hypothyroid and PVCs as well as an ongoing evaluation of chronic dizziness presents with a chief complaint of a fall with a head injury. She went to bed feeling fine and woke up feeling fine and as the morning wore on she started feeling a bit off and had some dizziness and nausea. She sat down at her kitchen table and then felt as if she would have to use the restroom, soon after standing up she became increasingly dizzy and fell to the floor. She did not lose consciousness and has full recall. She did hit her head on the way down but denies any other injury. She denies nausea, vomiting or diarrhea. She denies any focal neurologic findings such as numbness, tingling or weakness. She did have the diagnosis of urinary tract infection last week. She takes no blood thinners MD complaint: dizziness and lightheadedness Onset (ago): hour(s) Timing: gradual onset Description: lightheadedness History of similar episodes: Yes History of trauma: Yes Severity: mild Relieving factors: nothing Exacerbating factors: nothing Associated symptoms: denies other symptoms Related Data Home Medications Medication Instructions Recorded Confirmed ASCORBIC ACID (#VITAMIN C) 500 - 1,000 mg PO QDAY #0 09/23/11 CHOLECALCIFEROL (VITAMIN D3) 5,000 units PO BID #0 06/21/13 [VITAMIN B 12] 1,000 mg PO QDAY #0 06/21/13 [lipo-cardia] #0 01/10/17 [turmeric] #0 01/10/17 [D-Trevor] #0 01/02/18 diltiazem HCl 30 mg PO DAILY 04/07/19 04/07/19 ipratropium bromide 1 spray INTRANASAL DIRECTED 04/07/19 04/07/19 levothyroxine 75 mcg PO DAILY 04/07/19 04/07/19 Previous Rx's Medication Instructions Recorded codeine-guaifenesin 5 ml PO QHS #60 ml 11/11/17 Allergies Allergy/AdvReac Type Severity Reaction Status Date / Time adhesive Allergy Mild RASH, Verified 09/28/19 06:45 SEVERE BLISTERS azithromycin Allergy Mild RASH Verified 09/28/19 06:45 bacitracin Allergy Mild RASH Verified 09/28/19 06:45 [From Neosporin ([id number])] cefpodoxime Allergy Mild RASH Verified 09/28/19 06:45 neomycin Allergy Mild RASH Verified 09/28/19 06:45 [From Neosporin ([id number])] polymyxin B Allergy Mild RASH Verified 09/28/19 06:45 [From Neosporin ([id number])] Sulfa (Sulfonamide Allergy Mild RASH Verified 09/28/19 06:45 Antibiotics) tetracycline Allergy Mild RASH, Verified 09/28/19 06:45 SYNCOPE benzonatate Allergy Unknown Verified 09/28/19 06:45 losartan [LOSARTAN] Allergy Unknown Verified 09/28/19 06:45 aspirin AdvReac Intermediate RECTAL Verified 09/28/19 06:45 BLEED levofloxacin AdvReac Intermediate HEEL PAIN Verified 09/28/19 06:45 AND TENDONTITIS carvedilol AdvReac Mild MUSCLE Verified 09/28/19 06:45 WEAKNESS ciprofloxacin AdvReac Mild HEEL PAIN Verified 09/28/19 06:45 metoprolol AdvReac Mild WEAK, Verified 09/28/19 06:45 NAUSEA Review of Systems <Slim Navarro, - Last Filed: 09/29/19 00:59> Constitutional Constitutional: Denies chills, Denies fatigue, Denies fever(s), Denies frequent falls, Denies lethargy and Reports weakness Eyes Eyes: Denies change in vision, Denies eye discharge, Denies irritation and Denies loss of vision ENT Ears, Nose, Mouth, and Throat: Denies change in voice, Denies dizziness, Denies neck pain, Denies sore throat and Denies throat swelling Cardiovascular Cardiovascular: Denies chest pain, Denies irregular heart rhythm, Reports lightheadedness, Denies palpitations, Denies dyspnea, Denies dyspnea on exertion and Denies orthopnea Respiratory Respiratory: Denies cough, Denies dyspnea, Denies dyspnea on exertion and Denies wheezing Gastrointestinal Gastrointestinal: Denies abdominal pain, Denies change in bowel habits, Denies diarrhea, Denies nausea and Denies vomiting Genitourinary Genitourinary: Denies hematuria, Denies flank pain, Denies urinary incontinence and Denies urinary urgency Musculoskeletal Musculoskeletal: Denies back pain, Denies muscle weakness, Denies neck pain, Denies numbness and Denies tingling Integumentary/Breasts Skin/Breast: Denies pruritus, Denies erythema, Denies rash and Denies wounds Neurologic Neurologic: Denies behavioral changes, Denies confusion, Denies dizziness, Denies frequent falls, Denies loss of vision, Denies numbness, Denies tingling and Reports weakness Psychiatric Psychiatric: Denies anxiety, Denies behavioral changes, Denies confusion, Denies depression, Denies homicidal ideation and Denies suicidal ideation Endocrine Endocrine: Denies fatigue, Denies flushing and Denies palpitations Hematologic/Lymphatic Hematologic/Lymphatic: Denies easy bruising Allergic/Immunologic Allergic/Immunologic: Denies urticaria, Denies throat swelling and Denies wheezing Patient History <Slim Navarro DO - Last Filed: 09/29/19 00:59> Medical History Hypertension (Acute) Social History Smoking Status: Never smoker alcohol intake frequency: holidays/special occasions only Substance Use Type: does not use Exam <Slim Navarro DO - Last Filed: 09/29/19 00:59> Narrative Exam Narrative: GENERAL: [83] year old patient appears stated age. Well-nourished, well-developed patient, in mild distress. HEAD: Mild contusion on left forehead EYES: Pupils equal round and reactive. Extraocular motions intact. No scleral icterus. No injection or drainage. ENT: Nose without bleeding, purulent drainage. Throat without erythema, tonsillar hypertrophy or exudate. Airway patent. NECK: Trachea midline. Non tender CARDIOVASCULAR: Regular rate and rhythm without murmurs, gallops, or rubs. RESPIRATORY: Clear to auscultation. Breath sounds equal bilaterally. No wheezes, rales, or rhonchi. GASTROINTESTINAL: Abdomen soft, non-tender, nondistended. EXTREMITIES: No edema or joint tenderness. BACK: Nontender without deformity or crepitance. No flank tenderness. NEURO: AOx3. SKIN: No rash or erythema of visible areas Initial Vital Signs Initial Vital Signs: Vital Signs Temperature 97.9 F 09/28/19 06:02 Pulse Rate 67 09/28/19 06:02 Respiratory Rate 17 09/28/19 06:02 Blood Pressure 162/76 H 09/28/19 06:02 Pulse Oximetry 99 09/28/19 06:02 <Lorie Moreland DO - Last Filed: 09/28/19 09:21> Initial Vital Signs Initial Vital Signs: Vital Signs Temperature 97.9 F 09/28/19 06:02 Pulse Rate 67 09/28/19 06:02 Respiratory Rate 17 09/28/19 06:02 Blood Pressure 162/76 H 09/28/19 06:02 Pulse Oximetry 99 09/28/19 06:02 Course <Slim Navarro DO - Last Filed: 09/29/19 00:59> Course Course Narrative: patient now stating that she has been having episodes of crampy abdominal pain for the past few days, also states that she may have actually passed out. Orders Ordered: Discontinued Medications Sodium Chloride (Normal Saline 0.9%) 1,000 mls @ 150 mls/hr IV CONT LELE Last Infusion: 09/28/19 08:26 Dose: 0 mls/hr Documented by: Infusion: 09/28/19 08:25 Dose: 150 mls/hr Documented by: Admin: 09/28/19 06:27 Dose: 150 mls/hr Documented by: NIURKA Ondansetron HCl (Zofran) 4 mg IV NOW ONE Stop: 09/28/19 06:07 Last Admin: 09/28/19 06:27 Dose: 4 mg Documented by: NIURKA Vital Signs Vital signs: Vital Signs - 8 hr 09/28/19 06:02 09/28/19 07:24 09/28/19 08:33 Temperature 97.9 F Pulse Rate 67 64 Pulse Rate [Orthostatic Lying] 57 L Pulse Rate [Orthostatic Sitting] 60 Pulse Rate [Orthostatic Standing] 80 Respiratory Rate 17 19 Blood Pressure 162/76 H Blood Pressure [Left Arm] 140/64 Blood Pressure [Orthostatic Lying] 148/72 H Blood Pressure [Orthostatic Sitting] 155/76 H Blood Pressure [Orthostatic Standing] 148/88 H Pulse Oximetry 99 98 09/28/19 08:55 Temperature 97.9 F Pulse Rate 63 Pulse Rate [Orthostatic Lying] Pulse Rate [Orthostatic Sitting] Pulse Rate [Orthostatic Standing] Respiratory Rate 15 Blood Pressure 143/88 H Blood Pressure [Left Arm] Blood Pressure [Orthostatic Lying] Blood Pressure [Orthostatic Sitting] Blood Pressure [Orthostatic Standing] Pulse Oximetry 99 <Lorie Moreland DO - Last Filed: 09/28/19 09:21> Orders Ordered: Discontinued Medications Sodium Chloride (Normal Saline 0.9%) 1,000 mls @ 150 mls/hr IV CONT LELE Last Infusion: 09/28/19 08:26 Dose: 0 mls/hr Documented by: Infusion: 09/28/19 08:25 Dose: 150 mls/hr Documented by: Admin: 09/28/19 06:27 Dose: 150 mls/hr Documented by: NIURKA Ondansetron HCl (Zofran) 4 mg IV NOW ONE Stop: 09/28/19 06:07 Last Admin: 09/28/19 06:27 Dose: 4 mg Documented by: NIURKA Vital Signs Vital signs: Vital Signs - 8 hr 09/28/19 06:02 09/28/19 07:24 09/28/19 08:33 Temperature 97.9 F Pulse Rate 67 64 Pulse Rate [Orthostatic Lying] 57 L Pulse Rate [Orthostatic Sitting] 60 Pulse Rate [Orthostatic Standing] 80 Respiratory Rate 17 19 Blood Pressure 162/76 H Blood Pressure [Left Arm] 140/64 Blood Pressure [Orthostatic Lying] 148/72 H Blood Pressure [Orthostatic Sitting] 155/76 H Blood Pressure [Orthostatic Standing] 148/88 H Pulse Oximetry 99 98 09/28/19 08:55 Temperature 97.9 F Pulse Rate 63 Pulse Rate [Orthostatic Lying] Pulse Rate [Orthostatic Sitting] Pulse Rate [Orthostatic Standing] Respiratory Rate 15 Blood Pressure 143/88 H Blood Pressure [Left Arm] Blood Pressure [Orthostatic Lying] Blood Pressure [Orthostatic Sitting] Blood Pressure [Orthostatic Standing] Pulse Oximetry 99 MDM - Dizziness <Slim Navarro DO - Last Filed: 09/29/19 00:59> Lab Data Result diagrams: 09/28/19 06:25 09/28/19 06:25 Labs: Lab Results 09/28/19 09/28/19 09/28/19 Range/Units 06:25 06:25 07:07 WBC 6.9 (4.5-11.0) X10^3/uL RBC 4.29 (4.0-5.2) X10^6/uL Hgb 13.9 (12.0-16.0) g/dL Hct 40.9 (36-46) % MCV 95.3 (80-100) fL MCH 32.4 (26-34) PG MCHC 34.0 (30-36) % RDW 13.9 (11.6-14.8) % Plt Count 243 (150-400) X10^3/uL Neut % (Auto) 73.4 (50-75) % Lymph % (Auto) 17.4 L (25-40) % [place] % (Auto) 5.9 (3-14) % Eos % (Auto) 2.8 (2-4) % Baso % (Auto) 0.5 (0-2) % Neut # (Auto) 5100 (7963-9606) /uL Lymph # (Auto) 1200 (0116-0709) /uL [place] # (Auto) 400 (0-900) /uL Eos # (Auto) 200 (0-450) /uL Baso # (Auto) 0 (0-100) /uL Sodium 141 (137-145) mmol/L Potassium 3.4 (3.4-5.1) mmol/L Chloride 103 (98-107) mmol/L Carbon Dioxide 30 (22-32) mmol/L BUN 13 (7-17) mg/dL Creatinine 0.70 (0.52-1.04) mg/dL Estimated GFR > 60.0 (>60) mL/min BUN/Creatinine Ratio 18.6 (6-22) Glucose 138 H (80-110) mg/dL Calcium 9.2 (8.4-10.2) mg/dL Troponin I < 0.012 (0.01-0.034) ng/mL Urine Color Yellow Urine Appearance Clear Urine pH 8.0 (4.5-8.0) Ur Specific [place] 1.010 (1.000-1.035) Urine Protein Negative (Negative) Urine Glucose (UA) Negative (Negative) g/dL Urine Ketones Negative (NEGATIVE) Urine Occult Blood Negative (Negative) Urine Nitrate Negative (Negative) Urine Bilirubin Negative (NEGATIVE) Urine Urobilinogen 0.2 (0.2) E.U./dL Ur Leukocyte Esterase Negative (NEGATIVE) Urine RBC None seen (0-5/HPF) Urine WBC None seen (0-5/HPF) Ur Squamous Epith Cells 1-5 /hpf (0-5/HPF) Amorphous Sediment 3+ Urine Bacteria Occasional (0-1) (None) Ur Culture Indicated? Cult not indicated ECG Data Attestation: I personally reviewed and interpreted this ECG as follows: Prior ECG tracings: available for review Interpretation: Sinus rhythm with rate 58. Right bundle branch block. Inverted T waves in lateral leads (unchanged from prior) <Lorie Moreland DO - Last Filed: 09/28/19 09:21> Lab Data Attestation: I reviewed the patient's lab results. Labs: Lab Results 09/28/19 09/28/19 09/28/19 Range/Units 06:25 06:25 07:07 WBC 6.9 (4.5-11.0) X10^3/uL RBC 4.29 (4.0-5.2) X10^6/uL Hgb 13.9 (12.0-16.0) g/dL Hct 40.9 (36-46) % MCV 95.3 (80-100) fL MCH 32.4 (26-34) PG MCHC 34.0 (30-36) % RDW 13.9 (11.6-14.8) % Plt Count 243 (150-400) X10^3/uL Neut % (Auto) 73.4 (50-75) % Lymph % (Auto) 17.4 L (25-40) % [place] % (Auto) 5.9 (3-14) % Eos % (Auto) 2.8 (2-4) % Baso % (Auto) 0.5 (0-2) % Neut # (Auto) 5100 (2999-1026) /uL Lymph # (Auto) 1200 (4510-6605) /uL [place] # (Auto) 400 (0-900) /uL Eos # (Auto) 200 (0-450) /uL Baso # (Auto) 0 (0-100) /uL Sodium 141 (137-145) mmol/L Potassium 3.4 (3.4-5.1) mmol/L Chloride 103 (98-107) mmol/L Carbon Dioxide 30 (22-32) mmol/L BUN 13 (7-17) mg/dL Creatinine 0.70 (0.52-1.04) mg/dL Estimated GFR > 60.0 (>60) mL/min BUN/Creatinine Ratio 18.6 (6-22) Glucose 138 H (80-110) mg/dL Calcium 9.2 (8.4-10.2) mg/dL Troponin I < 0.012 (0.01-0.034) ng/mL Urine Color Yellow Urine Appearance Clear Urine pH 8.0 (4.5-8.0) Ur Specific [place] 1.010 (1.000-1.035) Urine Protein Negative (Negative) Urine Glucose (UA) Negative (Negative) g/dL Urine Ketones Negative (NEGATIVE) Urine Occult Blood Negative (Negative) Urine Nitrate Negative (Negative) Urine Bilirubin Negative (NEGATIVE) Urine Urobilinogen 0.2 (0.2) E.U./dL Ur Leukocyte Esterase Negative (NEGATIVE) Urine RBC None seen (0-5/HPF) Urine WBC None seen (0-5/HPF) Ur Squamous Epith Cells 1-5 /hpf (0-5/HPF) Amorphous Sediment 3+ Urine Bacteria Occasional (0-1) (None) Ur Culture Indicated? Cult not indicated Imaging Data CT scan - head: Radiologist's impression: PROCEDURE: CT HEAD/BRAIN WO CON INDICATIONS: fall with head injury TECHNIQUE: Noncontrast 4.5 mm thick angled axial sections acquired from the foramen magnum to the vertex, with coronal and sagittal reformats. For radiation dose reduction, the following was used: automated exposure control, adjustment of mA and/or kV according to patient size. COMPARISON: [facility], CT, CT HEAD/BRAIN WO CON, 04/07/2019, 13:05. FINDINGS: Image quality: Excellent. CSF spaces: Basal cisterns are patent. No extra-axial fluid collections. The ventricles are symmetric in size and shape. Brain: No intracranial bleeds or masses. There is cerebral volume loss for age, with resultant ventricular and sulcal prominence. There are periventricular and deep white matter chronic small vessel ischemic changes. There is intracranial internal carotid artery atherosclerosis. Skull and face: Calvarium and visualized facial bones appear intact, without suspicious lesions. Sinuses: Small mucous retention cyst versus polyp noted in the right sphenoid sinus. The mastoids are clear. IMPRESSION: No acute intracranial disease process. Dictated by: Nae Holguin MD, PhD on 09/28/2019 at 7:26 Abdominal x-ray: Radiologist's impression: PROCEDURE: XR ACUTE ABDOMEN SERIES INDICATIONS: Abdominal pain TECHNIQUE: One view chest and two views of the abdomen were acquired. COMPARISON: None. FINDINGS: Surgical changes and devices: None. Chest: Lungs are clear. Heart size is normal. No pleural effusions. No pneumoperitoneum. Abdomen: Bowel gas pattern is normal. Moderate amount of stool noted throughout the colon. No suspicious calcifications. Visualized solid organ contours appear normal. Bones: No suspicious bony lesions. IMPRESSION: Moderate fecal loading throughout the colon. No acute cardiopulmonary disease process. Dictated by: Nae Holguin MD, PhD on 09/28/2019 at 7:47 MDM Narrative Medical decision making narrative: I received sign-out from Dr. Navarro of seen and evaluated patient myself. She has been ambulatory to the restroom without assistance at least twice. Her abdomen remains relatively soft x-ray is negative. Blood work overall reassuring. She has a history of chronic dizziness he possibly had an acute exacerbation of her chronic dizziness. Does not seem to be a problem at this time. A head CT is negative. She is currently taking antibiotics for UTI her urine shows no sign of UTI at this time I recommend she finished her antibiotics as previously prescribed. Discharge Plan Departure Patient Disposition: Home Clinical Impression: Vertigo Discharge Date/Time: 09/28/19 08:56 Instructions: DI for Dizziness-Nonvertigo Activity Restrictions/Additional Instructions: *You have been diagnosed with vertigo *What to do: At this time blood work head CT, EKG and x-rays are reassuring. This is likely her chronic dizziness that caused the issue today *Continue to take medications as directed Finish antibiotics as previously prescribed until gone *Follow up with your primary care provider in 2-3 days *Return to ER if you should have recurrent falls weakness numbness tingling vision change or any new, worsening or concerning symptoms Prescriptions: No Action ASCORBIC ACID (#VITAMIN C) 500 - 1,000 mg PO QDAY Qty: 0 RF: 0 CHOLECALCIFEROL (VITAMIN D3) 5,000 units PO BID Qty: 0 RF: 0 [VITAMIN B 12] 1,000 mg PO QDAY Qty: 0 RF: 0 [lipo-cardia] Qty: 0 RF: 0 [turmeric] Qty: 0 RF: 0 codeine-guaifenesin 100 MG/10 MG liquid 5 ml PO QHS Qty: 60 RF: 0 [D-Trevor] Qty: 0 RF: 0 levothyroxine 75 mcg tablet 75 mcg PO DAILY RF: 0 diltiazem HCl 30 mg tablet 30 mg PO DAILY RF: 0 ipratropium bromide 42 mcg (0.06 %) spray,non-aerosol 1 spray Intranasal DIRECTED RF: 0 Referrals: Kailee Garibay MD [Primary Care Provider] -
[2019-09-28] MEDS: SODIUM CHLORIDE 0.9% 1,000 ML 150 ML IV (06:27)
[2019-09-28] MEDS: ONDANSETRON 4 MG/2 ML INJ IV (06:27)
[2019-09-28 06:30] LABS: Add Manual Diff / Slide Review NO; Basophils Absolute Auto 0 /uL (0-100); Basophils Percent Auto 0.5 % (0-2); Eosinophils Absolute Auto 200 /uL (0-450); Eosinophils Percent Auto 2.8 % (2-4); Hematocrit 40.9 % (36-46); Hemoglobin 13.9 g/dL (12.0-16.0); Lymphocytes Absolute Auto 1200 /uL (1100-4500); Lymphocytes Percent Auto 17.4 % (25-40); Mean Corpuscular Hemoglobin 32.4 PG (26-34); Mean Corpuscular Volume 95.3 fL (80-100); Monocytes Absolute Auto 400 /uL (0-900); Monocytes Percent Auto 5.9 % (3-14); Neutrophils Absolute Auto 5100 /uL (1500-7000); Neutrophils Percent Auto 73.4 % (50-75); Platelet Count 243 X10^3/uL (150-400); Red Blood Cell Count 4.29 X10^6/uL (4.0-5.2); Red Cell Distribution Width 13.9 % (11.6-14.8); White Blood Cell Count 6.9 X10^3/uL (4.5-11.0)
[2019-09-28 06:41] LABS: BUN Creatinine Ratio 18.6 (6-22); Blood Urea Nitrogen 13 mg/dL (7-17); Calcium 9.2 mg/dL (8.4-10.2); Carbon Dioxide 30 mmol/L (22-32); Chloride 103 mmol/L (98-107); Estimated Glomerular Filt Rate > 60.0 mL/min (>60); Glucose 138 mg/dL (80-110); HEMOLYSIS < 15 (0-50); Potassium 3.4 mmol/L (3.4-5.1); Sodium 141 mmol/L (137-145)
[2019-09-28 06:53] LABS: Troponin I < 0.012 ng/mL (0.01-0.034)
--- NOTE | 2019-09-28 06:59 | DI.RAD.S_ITS ---
PROCEDURE: XR ACUTE ABDOMEN SERIES INDICATIONS: Abdominal pain TECHNIQUE: One view chest and two views of the abdomen were acquired. COMPARISON: None. FINDINGS: Surgical changes and devices: None. Chest: Lungs are clear. Heart size is normal. No pleural effusions. No pneumoperitoneum. Abdomen: Bowel gas pattern is normal. Moderate amount of stool noted throughout the colon. No suspicious calcifications. Visualized solid organ contours appear normal. Bones: No suspicious bony lesions. IMPRESSION: Moderate fecal loading throughout the colon. No acute cardiopulmonary disease process. Dictated by: Nae Holguin MD, PhD on 09/28/2019 at 7:47 Approved by: Nae Holguin MD, PhD on 09/28/2019 at 7:48
[2019-09-28 07:24] VITALS: BP 140/64; PULSE 64; RESP 19; O2SAT 98
[2019-09-28 07:35] LABS: RBC Urine None Seen (0-5/HPF); WBC Urine None Seen (0-5/HPF)
[2019-09-28 07:36] LABS: Appearance Urine UA CLEAR; Bilirubin Urine UA NEGATIVE (NEGATIVE); Color Urine UA YELLOW; Glucose Urine UA NEGATIVE (Negative); Ketones Urine UA NEGATIVE (NEGATIVE); Leukocyte Esterase Urine UA NEGATIVE (NEGATIVE); Nitrite Urine UA NEGATIVE (Negative); Occult Blood Urine UA NEGATIVE (Negative); Protein Urine UA NEGATIVE (Negative); Urobilinogen Urine UA 0.2 E.U./dL (0.2)
[2019-09-28 07:43] LABS: Squamous Epithelial Cell Urine 1-5 /HPF (0-5/HPF)
[2019-09-28 07:44] LABS: Amorphous Sediment Urine 3+; Bacteria Urine Occasional (0-1); Culture Indicated Urine Cult Not Indicated
[2019-09-28 08:33] VITALS: BP 148/72; BP 148/88; BP 155/76; PULSE 57; PULSE 60; PULSE 80
[2019-09-28 08:55] VITALS: BP 143/88; PULSE 63; RESP 15; TEMP 36.6; O2SAT 99
== END 2019-09-28 08:56 | disposition home or self-care (01) ==
PROVIDERS: Emergency Medicine; Emergency Provider Emergency Medicine; PCP Internal Medicine
DX: R42 Dizziness and giddiness (principal); S09.90XA Unspecified injury of head, initial encounter; R10.9 Unspecified abdominal pain; I10 Essential (primary) hypertension; W18.30XA Fall on same level, unspecified, initial encounter
CPT/HCPCS: 36415; 70450; 74022; 80048; 81001; 84484; 85025; 93005; 96361; 96374; 99283; 99285; J2405

== ENCOUNTER → 2019-11-05 12:46 | Outpatient (ROUT) | payer MEDICARE, OTHER, SELFPAY | PROVIDERS: PCP Internal Medicine; Visit Provider Internal Medicine | DX: N39.0 Urinary tract infection, site not specified (principal) | CPT/HCPCS: 87086 ==

== ENCOUNTER 2019-12-23 08:22 | Emergency (ER) | payer MEDICARE, OTHER, SELFPAY ==
[2019-12-23 08:31] VITALS: BP 179/95; PULSE 67; RESP 16; TEMP 36.3; O2SAT 99; BMI 30.2
--- NOTE | 2019-12-23 08:43 | ED_ITS ---
HPI - Fall General Chief Complaint: Fall Stated Complaint: fall Time Seen by Provider: 12/23/19 08:42 Source: family Mode of arrival: Wheelchair History of Present Illness HPI Narrative: CC: Closed head injury with facial abrasions and neck injury in hyperextension HPI: The patient is an 84-year-old female who states that she caught her foot on the [place] chest and fell forward landing striking her face on the carpet. She denies any loss of consciousness but has a headache and complains of neck pain. The patient was transported to the emergency department by her . On arrival she had a cervical collar placed. Patient denies any nausea vomiting numbness or tingling loss of sensation. She denies any recent fever chills or sweats. She has had no palpitations dizziness shortness of breath cough for chest pain. She was not incontinent of urine or stool. She also complained that her right arm was painful in the area of the elbow but she was able to flex and extend her elbow and supinated. She has mild swelling over the with Related Data Home Medications Medication Instructions Recorded Confirmed ASCORBIC ACID (#VITAMIN C) 500 - 1,000 mg PO QDAY #0 09/23/11 CHOLECALCIFEROL (VITAMIN D3) 5,000 units PO BID #0 06/21/13 [VITAMIN B 12] 1,000 mg PO QDAY #0 06/21/13 [lipo-cardia] #0 01/10/17 [turmeric] #0 01/10/17 [D-Trevor] #0 01/02/18 diltiazem HCl 30 mg PO DAILY 04/07/19 04/07/19 ipratropium bromide 1 spray INTRANASAL DIRECTED 04/07/19 04/07/19 levothyroxine 75 mcg PO DAILY 04/07/19 04/07/19 Previous Rx's Medication Instructions Recorded codeine-guaifenesin 5 ml PO QHS #60 ml 11/11/17 cyclobenzaprine 10 mg PO TID PRN #15 tab 12/23/19 naproxen [Naprosyn] 500 mg PO BID PRN #20 tab 12/23/19 Allergies Allergy/AdvReac Type Severity Reaction Status Date / Time adhesive Allergy Mild RASH, Verified 12/23/19 08:31 SEVERE BLISTERS azithromycin Allergy Mild RASH Verified 12/23/19 08:31 bacitracin Allergy Mild RASH Verified 12/23/19 08:31 [From Neosporin ([id number])] cefpodoxime Allergy Mild RASH Verified 12/23/19 08:31 neomycin Allergy Mild RASH Verified 12/23/19 08:31 [From Neosporin ([id number])] polymyxin B Allergy Mild RASH Verified 12/23/19 08:31 [From Neosporin ([id number])] Sulfa (Sulfonamide Allergy Mild RASH Verified 12/23/19 08:31 Antibiotics) tetracycline Allergy Mild RASH, Verified 12/23/19 08:31 SYNCOPE benzonatate Allergy Unknown Verified 12/23/19 08:31 losartan [LOSARTAN] Allergy Unknown Verified 12/23/19 08:31 aspirin AdvReac Intermediate RECTAL Verified 09/28/19 06:45 BLEED levofloxacin AdvReac Intermediate HEEL PAIN Verified 09/28/19 06:45 AND TENDONTITIS carvedilol AdvReac Mild MUSCLE Verified 09/28/19 06:45 WEAKNESS ciprofloxacin AdvReac Mild HEEL PAIN Verified 09/28/19 06:45 metoprolol AdvReac Mild WEAK, Verified 09/28/19 06:45 NAUSEA Review of Systems Review of Systems Narrative: The patient's review of systems were all negative except for those mentioned in the history of present illness. Patient History Medical History Hypertension (Acute) Social History Smoking Status: Never smoker Smoking Status: Never smoker alcohol intake frequency: holidays/special occasions only Substance Use Type: does not use Exam Narrative Exam Narrative: PHYSICAL EXAM: CONSTITUTIONAL: Awake, Alert, Oriented, Coherent, Cooperative in NAD. Does not appear toxic or ill. The patient is sitting upright with a cervical collar on. HEAD: AT/NC the patient has a rug burn abrasion over her right forehead, right maxilla and right nasal bridge. EENT: PERRL, FROM of eyes, no discharge, no nystagmus No drainage from the ears, Tympanic membranes intact bilaterally, clear EAC No epistaxis or nasal drainage Oral mucosa is moist and pink, posterior pharynx is without erythema or exudate. NECK: Supple, no obvious JVD, Trachea is midline without stridor, no palpable LN or masses. SPINE: No gross deformity, no palpable tenderness of the cervical, thoracic, lumbar or sacral spine. No CVA tenderness. THORAX: No deformity, retractions, chest wall tenderness, LUNGS: Clear with symmetrical breath sounds without respiratory distress HEART: Normal heart tones, regular rhythm and rate without murmur. ABDOMEN: Soft, non-tender, normal bowel sounds without guarding, rebound, rigidity or palpable mass EXTREMITIES: No edema, cyanosis, deformity . The patient's right lateral elbow is mildly swollen over the epicondyle and tender to palpation. However she has full flexion and extension of the elbow as well as supination and pronation.. SKIN: No rash, bruising, petechiae or purpura. NEURO: Awake, alert, oriented, conversive, cranial nerves II-XII are symmetrical and normal, moves all 4 extremities Initial Vital Signs Initial Vital Signs: Vital Signs Temperature 97.3 F L 12/23/19 08:31 Pulse Rate 67 12/23/19 08:31 Respiratory Rate 16 12/23/19 08:31 Blood Pressure 179/95 H 12/23/19 08:31 Pulse Oximetry 99 12/23/19 08:31 Course Course Course Narrative: 0957 the patient's chest x-ray is negative for any acute pathology. The x-ray of her elbow reveals no fracture dislocation or pathology. 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 CT of her neck shows no fracture malalignment and CT of her head reveals no intracranial pathology or hemorrhage. 1025: Normal gait. Patient walked to the bathroom without any problems. Orders Ordered: Discontinued Medications Sodium Chloride (Normal Saline 0.9%) 1,000 mls @ 1,000 mls/hr IV BOLUS ONE Stop: 12/23/19 09:42 Last Infusion: 12/23/19 10:45 Dose: 0 mls/hr Documented by: Admin: 12/23/19 09:24 Dose: 1,000 mls/hr Documented by: FAUSTINO Vital Signs Vital signs: Vital Signs - 8 hr 12/23/19 08:31 12/23/19 09:48 Temperature 97.3 F L Pulse Rate 67 67 Respiratory Rate 16 16 Blood Pressure 179/95 H Blood Pressure [Right Arm] 184/93 H Pulse Oximetry 99 96 MDM - Fall Lab Data Result diagrams: 12/23/19 08:55 12/23/19 08:55 Labs: Lab Results 12/23/19 12/23/19 Range/Units 08:55 08:55 WBC 5.2 (4.5-11.0) X10^3/uL RBC 4.65 (4.0-5.2) X10^6/uL Hgb 15.3 (12.0-16.0) g/dL Hct 44.4 (36-46) % MCV 95.6 (80-100) fL MCH 32.8 (26-34) PG MCHC 34.3 (30-36) % RDW 14.0 (11.6-14.8) % Plt Count 266 (150-400) X10^3/uL Neut % (Auto) 61.9 (50-75) % Lymph % (Auto) 27.3 (25-40) % [place] % (Auto) 7.9 (3-14) % Eos % (Auto) 2.2 (2-4) % Baso % (Auto) 0.7 (0-2) % Neut # (Auto) 3200 (1632-5671) /uL Lymph # (Auto) 1400 (9612-6073) /uL [place] # (Auto) 400 (0-900) /uL Eos # (Auto) 100 (0-450) /uL Baso # (Auto) 0 (0-100) /uL Sodium 138 (137-145) mmol/L Potassium 3.9 (3.4-5.1) mmol/L Chloride 103 (98-107) mmol/L Carbon Dioxide 27 (22-32) mmol/L BUN 15 (7-17) mg/dL Creatinine 0.70 (0.52-1.04) mg/dL Estimated GFR > 60.0 (>60) mL/min BUN/Creatinine Ratio 21.4 (6-22) Glucose 124 H (80-110) mg/dL Calcium 9.5 (8.4-10.2) mg/dL Total Bilirubin 1.2 (0.2-1.3) mg/dL AST 34 (14-36) IU/L ALT 18 (<35) IU/L Alkaline Phosphatase 85 (38-126) U/L Total Protein 8.7 H (6.3-8.2) g/dL Albumin 4.8 (3.5-5.0) g/dL Globulin 3.9 (1.7-4.1) g/dL Albumin/Globulin Ratio 1.2 (1.0-2.8) Urine Dip Bedside Urine Glucose Negative Bedside Urine Bilirubin - Negative Bedside Urine Ketone - Negative Urine Specific [place] 1.010 Bedside Urine Occult Blood - Negative Bedside Urine pH 8.0 Bedside Urine Protein - Negative Bedside Urine Urobilinogen - Negative Bedside Urine Nitrite - Negative Bedside Urine Leukocytes - Negative Esterase Discharge Plan Departure Patient Disposition: Home Clinical Impression: Fall Qualifiers: Encounter type: initial encounter Qualified Code(s): W19.XXXA - Unspecified fall, initial encounter Abrasion of face Qualifiers: Encounter type: initial encounter Qualified Code(s): S00.81XA - Abrasion of other part of head, initial encounter Neck strain Qualifiers: Encounter type: initial encounter Qualified Code(s): S16.1XXA - Strain of muscle, fascia and tendon at neck level, initial encounter Closed head injury Qualifiers: Encounter type: initial encounter Qualified Code(s): S09.90XA - Unspecified injury of head, initial encounter Discharge Date/Time: 12/23/19 10:49 Instructions: Whiplash, How to Prevent Falls, DI for Closed Head Injury, DI for Abrasion Activity Restrictions/Additional Instructions: Wash the abrasions of your face and apply a very thin ointment of Neosporin twice a day as needed. Take the medications as prescribed for any pain and discomfort or muscle spasms. If you develop worsening headache troubles with your vision dizziness progressive weakness or you feel like you are going to pass out you need to return to the emergency department. Otherwise follow-up with your primary care physician. Prescriptions: New cyclobenzaprine 10 mg tablet 10 mg PO TID PRN (Reason: muscle spasm) Qty: 15 RF: 0 naproxen [Naprosyn] 500 mg tablet 500 mg PO BID PRN (Reason: pain) Qty: 20 RF: 0 No Action ASCORBIC ACID (#VITAMIN C) 500 - 1,000 mg PO QDAY Qty: 0 RF: 0 CHOLECALCIFEROL (VITAMIN D3) 5,000 units PO BID Qty: 0 RF: 0 [VITAMIN B 12] 1,000 mg PO QDAY Qty: 0 RF: 0 [lipo-cardia] Qty: 0 RF: 0 [turmeric] Qty: 0 RF: 0 codeine-guaifenesin 100 MG/10 MG liquid 5 ml PO QHS Qty: 60 RF: 0 [D-Trevor] Qty: 0 RF: 0 levothyroxine 75 mcg tablet 75 mcg PO DAILY RF: 0 diltiazem HCl 30 mg tablet 30 mg PO DAILY RF: 0 ipratropium bromide 42 mcg (0.06 %) spray,non-aerosol 1 spray Intranasal DIRECTED RF: 0 Referrals: Kailee Garibay MD [Primary Care Provider] -
--- NOTE | 2019-12-23 08:44 | DI.CT.S_ITS ---
PROCEDURE: CT HEAD/BRAIN WO CON INDICATIONS: trip and falllanding on face with neck pain TECHNIQUE: Noncontrast 4.5 mm thick angled axial sections acquired from the foramen magnum to the vertex, with coronal and sagittal reformats. For radiation dose reduction, the following was used: automated exposure control, adjustment of mA and/or kV according to patient size. COMPARISON: [facility], CT, CT HEAD/BRAIN WO CON, 09/28/2019, 6:20. FINDINGS: Image quality: Excellent. CSF spaces: Basal cisterns are patent. No extra-axial fluid collections. The ventricles are symmetric in size and shape. Brain: No intracranial bleeds or masses. There is cerebral volume loss for age, with resultant ventricular and sulcal prominence. There are moderate periventricular and deep white matter chronic small vessel ischemic changes. There is intracranial internal carotid artery atherosclerosis. Skull and face: Calvarium and visualized facial bones appear intact, without suspicious lesions. Sinuses: Visualized sinuses and mastoids are clear. IMPRESSION: 1. Age related volume loss and moderate small vessel ischemic change. 2. No evidence acute stroke, hemorrhage, or mass. Dictated by: Perry Hudson M.D. on 12/23/2019 at 9:06 Approved by: Perry Hudson M.D. on 12/23/2019 at 9:08
--- NOTE | 2019-12-23 08:45 | DI.CT.S_ITS ---
PROCEDURE: CT CERVICAL SPINE WO CON INDICATIONS: trip and falllanding on face with neck pain TECHNIQUE: Noncontrast 3 mm thick sections acquired from the skull base to the T4 level. Sagittal and coronal reformats were then constructed. For radiation dose reduction, the following was used: automated exposure control, adjustment of mA and/or kV according to patient size. COMPARISON: [facility], CT, C-SPINE WITHOUT CONTRAST, 10/24/2008, 12:32. FINDINGS: Image quality: Excellent. Bones: No fractures or dislocations. Visualized superior ribs are intact. S-shaped scoliotic curvature is seen. Degenerative changes are seen, including mild to moderate disc space narrowing at C5-C6 and C6-C7. Partially bridging osteophytes are seen at these levels. Focal degenerative change is also seen involving the C1-C2 interface anteriorly. Milder degenerative changes are seen elsewhere. Soft tissues: Prevertebral soft tissues are normal in thickness. No paravertebral hematomas. Atherosclerotic calcification is noted. No apical pneumothoraces. IMPRESSION: Degenerative changes, without acute fractures. Dictated by: Jed Newman M.D. on 12/23/2019 at 8:13 Approved by: Jed Newman M.D. on 12/23/2019 at 8:15
--- NOTE | 2019-12-23 08:50 | DI.RAD.S_ITS ---
PROCEDURE: XR ELBOW RT 2V INDICATIONS: trip fall and injury of her right elbow TECHNIQUE: 2 views of the elbow were acquired. COMPARISON: [facility], CR, XR CHEST 1V, 12/23/2019, 8:53. [facility], CT, CT CERVICAL SPINE WO CON, 12/23/2019, 8:47. [facility], CT, CT FACIAL BONES WO CON, 12/23/2019, 8:47. [facility], CT, CT HEAD/BRAIN WO CON, 12/23/2019, 8:47. FINDINGS: Bones: No fractures or dislocations. No suspicious bony lesions. Soft tissues: Soft tissue injury is seen posteriorly. There is a joint effusion seen, with an elevated anterior fat-pad. IMPRESSION: Soft tissue injury, without an acute abnormality seen by plain film. There is a joint effusion seen. If there is point tenderness (or other clinical suspicion for a fracture not seen on these images) then a dedicated CT could be considered for further evaluation, as clinically appropriate. Dictated by: Jed Newman M.D. on 12/23/2019 at 8:15 Approved by: Jed Newman M.D. on 12/23/2019 at 8:16
--- NOTE | 2019-12-23 08:53 | DI.CT.S_ITS ---
PROCEDURE: CT FACIAL BONES WO CON INDICATIONS: stretche TECHNIQUE: Noncontrast 2.5 mm thick axial images acquired from the mandible through the frontal sinuses, with coronal and sagittal reformatting. For radiation dose reduction, the following was used: automated exposure control, adjustment of mA and/or kV according to patient size. COMPARISON: None. FINDINGS: Image quality: Excellent. Bones and teeth: Orbital mejia are intact. Sinus mejia show no fracture or deformity. Nasal bones and septum are intact. Visualized portions of the mandible demonstrate no fractures or subluxation. Mild right TMJ degenerative arthritis. Zygomatic arches are intact. Pterygoid plates are intact. Visualized portions of the skull base and auditory canals are intact. Sinuses: Paranasal sinuses are aerated, without fluid levels, mucosal thickening, or mucoceles. Mastoid air cells are aerated. Soft tissues: No edema, masses, or fluid collections. No enlarged lymph nodes. No soft tissue lacerations or debris. Vascular: Visualized vascular structures appear normal in the absence of contrast. Bony vascular foramina and canals are intact. IMPRESSION: No evidence of displaced facial fracture or mandibular fracture. Paranasal sinuses are clear. Mild right TMJ degenerative arthritis. Dictated by: Perry Hudson M.D. on 12/23/2019 at 9:08 Approved by: Perry Hudson M.D. on 12/23/2019 at 9:12
--- NOTE | 2019-12-23 08:55 | DI.RAD.S_ITS ---
PROCEDURE: XR CHEST 1V INDICATIONS: trip and fall landing on her face complaining of neck pain TECHNIQUE: One view of the chest was acquired. COMPARISON: [facility], CR, CHEST 2 VIEW, 01/16/2015, 15:50. [facility], CR, CHEST 1 VIEW, 04/05/2015, 8:19. [facility], CR, CHEST 2 VIEW, 12/06/2016, 12:28. [facility], CR, XR ELBOW RT 2V, 12/23/2019, 8:49. [facility], CT, CT FACIAL BONES WO CON, 12/23/2019, 8:47. [facility], CT, CT CERVICAL SPINE WO CON, 12/23/2019, 8:47. [facility], CT, CT HEAD/BRAIN WO CON, 12/23/2019, 8:47. [facility], CR, XR CHEST 1V, 04/07/2019, 12:37. FINDINGS: Surgical changes and devices: None. Lungs and pleura: Lungs are clear. No pleural effusions or pneumothorax. Mediastinum: The cardiac contours are within normal limits. The aorta demonstrates calcification and tortuosity. Bones and chest wall: Age-appropriate bony degenerative changes are seen. No suspicious bony lesions. Overlying soft tissues appear unremarkable. IMPRESSION: No acute abnormality is seen on this single view chest examination. Dictated by: Jed Newman M.D. on 12/23/2019 at 8:17 Approved by: Jed Newman M.D. on 12/23/2019 at 8:17
[2019-12-23 09:23] LABS: Add Manual Diff / Slide Review NO; Basophils Absolute Auto 0 /uL (0-100); Basophils Percent Auto 0.7 % (0-2); Eosinophils Absolute Auto 100 /uL (0-450); Eosinophils Percent Auto 2.2 % (2-4); Hematocrit 44.4 % (36-46); Hemoglobin 15.3 g/dL (12.0-16.0); Lymphocytes Absolute Auto 1400 /uL (1100-4500); Lymphocytes Percent Auto 27.3 % (25-40); Mean Corpuscular HGB Conc 34.3 % (30-36); Mean Corpuscular Hemoglobin 32.8 PG (26-34); Mean Corpuscular Volume 95.6 fL (80-100); Monocytes Absolute Auto 400 /uL (0-900); Monocytes Percent Auto 7.9 % (3-14); Neutrophils Absolute Auto 3200 /uL (1500-7000); Neutrophils Percent Auto 61.9 % (50-75); Platelet Count 266 X10^3/uL (150-400); Red Blood Cell Count 4.65 X10^6/uL (4.0-5.2); White Blood Cell Count 5.2 X10^3/uL (4.5-11.0)
[2019-12-23] MEDS: SODIUM CHLORIDE 0.9% 1,000 ML 1000 ML IV (09:24)
[2019-12-23 09:33] LABS: Alanine Aminotransferase 18 IU/L (<35); Albumin 4.8 g/dL (3.5-5.0); Albumin Globulin Ratio 1.2 (1.0-2.8); Alkaline Phosphatase 85 U/L (38-126); Aspartate Aminotransferase 34 IU/L (14-36); BUN Creatinine Ratio 21.4 (6-22); Bilirubin Total 1.2 mg/dL (0.2-1.3); Blood Urea Nitrogen 15 mg/dL (7-17); Calcium 9.5 mg/dL (8.4-10.2); Carbon Dioxide 27 mmol/L (22-32); Chloride 103 mmol/L (98-107); Estimated Glomerular Filt Rate > 60.0 mL/min (>60); Globulin 3.9 g/dL (1.7-4.1); Glucose 124 mg/dL (80-110); HEMOLYSIS 21 (0-50); Potassium 3.9 mmol/L (3.4-5.1); Sodium 138 mmol/L (137-145); Total Protein 8.7 g/dL (6.3-8.2)
[2019-12-23 09:48] VITALS: BP 184/93; PULSE 67; RESP 16; O2SAT 96
[2019-12-23 10:46] VITALS: BP 178/86; PULSE 61; O2SAT 96
== END 2019-12-23 10:49 | disposition home or self-care (01) ==
PROVIDERS: Emergency Provider Emergency Medicine; PCP Internal Medicine
DX: S00.81XA Abrasion of other part of head, initial encounter (principal); S16.1XXA Strain of muscle, fascia and tendon at neck level, initial encounter; S09.90XA Unspecified injury of head, initial encounter; W01.0XXA Fall on same level from slipping, tripping and stumbling without subsequent striking against object, initial encounter
CPT/HCPCS: 70450; 70486; 71045; 72125; 73070; 80053; 81003; 85025; 93005; 96360; 99284; 99285

== ENCOUNTER → 2019-12-31 12:55 | Outpatient (ROUT) | payer MEDICARE, OTHER, SELFPAY | PROVIDERS: PCP Internal Medicine; Visit Provider Internal Medicine | DX: R79.89 Other specified abnormal findings of blood chemistry (principal) | CPT/HCPCS: 84443 ==

== ENCOUNTER → 2020-06-09 19:14 | Outpatient (ROUT) | payer MEDICARE, OTHER, SELFPAY ==
[2020-06-09 19:45] LABS: Add Manual Diff / Slide Review NO; Basophils Absolute Auto 0 /uL (0-100); Basophils Percent Auto 0.8 % (0-2); Eosinophils Absolute Auto 200 /uL (0-450); Hematocrit 39.4 % (36-46); Hemoglobin 13.3 g/dL (12.0-16.0); Lymphocytes Absolute Auto 1700 /uL (1100-4500); Lymphocytes Percent Auto 27.7 % (25-40); Mean Corpuscular HGB Conc 33.9 % (30-36); Mean Corpuscular Hemoglobin 32.5 PG (26-34); Mean Corpuscular Volume 95.8 fL (80-100); Monocytes Absolute Auto 500 /uL (0-900); Monocytes Percent Auto 7.7 % (3-14); Neutrophils Absolute Auto 3700 /uL (1500-7000); Neutrophils Percent Auto 60.8 % (50-75); Platelet Count 251 X10^3/uL (150-400); Red Blood Cell Count 4.11 X10^6/uL (4.0-5.2); Red Cell Distribution Width 14.4 % (11.6-14.8)
[2020-06-09 19:48] LABS: Alanine Aminotransferase 16 IU/L (<35); Albumin 4.3 g/dL (3.5-5.0); Albumin Globulin Ratio 1.5 (1.0-2.8); Alkaline Phosphatase 72 U/L (38-126); Aspartate Aminotransferase 29 IU/L (14-36); BUN Creatinine Ratio 40.7 (6-22); Bilirubin Total 0.9 mg/dL (0.2-1.3); Blood Urea Nitrogen 24 mg/dL (7-17); Calcium 9.7 mg/dL (8.4-10.2); Carbon Dioxide 24 mmol/L (22-32); Chloride 103 mmol/L (98-107); Estimated Glomerular Filt Rate > 60.0 mL/min (>60); Globulin 2.9 g/dL (1.7-4.1); Glucose 93 mg/dL (80-110); HEMOLYSIS < 15 (0-50); Potassium 4.2 mmol/L (3.4-5.1); Sodium 136 mmol/L (137-145); Total Protein 7.2 g/dL (6.3-8.2)
[2020-06-09 20:17] LABS: TSH w/ Reflex to FT4 3.17 uIU/mL (0.47-4.68)
== END ==
PROVIDERS: PCP Internal Medicine; Visit Provider Internal Medicine
DX: E03.9 Hypothyroidism, unspecified (principal); R63.4 Abnormal weight loss; R53.83 Other fatigue; I10 Essential (primary) hypertension; N39.41 Urge incontinence
CPT/HCPCS: 80053; 84443; 85025; 87086

== ENCOUNTER → 2020-07-05 11:55 | Outpatient (CLI) | payer MEDICARE, OTHER, SELFPAY ==
[2020-07-05 13:07] LABS: Appearance Urine UA CLOUDY; Bilirubin Urine UA NEGATIVE (NEGATIVE); Color Urine UA YELLOW; Glucose Urine UA NEGATIVE (Negative); Ketones Urine UA NEGATIVE (NEGATIVE); Leukocyte Esterase Urine UA 3+ (NEGATIVE); Nitrite Urine UA NEGATIVE (Negative); Occult Blood Urine UA 3+ (Negative); Protein Urine UA NEGATIVE (Negative); Specific Gravity Urine UA 1.015 (1.000-1.035); Urobilinogen Urine UA 0.2 E.U./dL (0.2)
[2020-07-05 13:13] LABS: Bacteria Urine Many (>30); RBC Urine >100/HPF (0-5/HPF); WBC Urine >100/HPF (0-5/HPF)
== END ==
PROVIDERS: PCP Internal Medicine; Referring Provider Physician Assistant; Visit Provider Physician Assistant
DX: N39.0 Urinary tract infection, site not specified (principal)
CPT/HCPCS: 81001; 87077; 87086; 87186

== ENCOUNTER 2020-09-08 16:10 | Emergency (ER) | payer MEDICARE, OTHER, SELFPAY ==
[2020-09-08 16:18] VITALS: BP 164/110; PULSE 89; RESP 16; TEMP 36.8; O2SAT 97; BMI 27.7
--- NOTE | 2020-09-08 17:12 | DI.CT.S_ITS ---
PROCEDURE: CT HEAD/BRAIN WO CON INDICATIONS: glf TECHNIQUE: Noncontrast 4.5 mm thick angled axial sections acquired from the foramen magnum to the vertex, with coronal and sagittal reformats. For radiation dose reduction, the following was used: automated exposure control, adjustment of mA and/or kV according to patient size. COMPARISON: None. FINDINGS: Image quality: Excellent. CSF spaces: Basal cisterns are patent. No extra-axial fluid collections. Ventricles are normal in size and shape. Brain: No midline shift. No intracranial masses or hemorrhage. Call-white matter interface is normal. Skull and face: Calvarium and visualized facial bones are intact, without suspicious lesions. Subgaleal scalp hematoma in the left prefrontal region. Sinuses: Visualized sinuses and mastoids are clear. IMPRESSION: No acute intracranial abnormality. Scalp hematoma in the left prefrontal region. Dictated by: Saravanan Nelson M.D. on 09/08/2020 at 17:42 Approved by: Saravanan Nelson M.D. on 09/08/2020 at 17:43
--- NOTE | 2020-09-08 17:12 | DI.CT.S_ITS ---
PROCEDURE: CT FACIAL BONES WO CON INDICATIONS: pain, swelling sp fall TECHNIQUE: Noncontrast 2.5 mm thick axial images acquired from the mandible through the frontal sinuses, with coronal and sagittal reformatting. For radiation dose reduction, the following was used: automated exposure control, adjustment of mA and/or kV according to patient size. COMPARISON: None. FINDINGS: Image quality: Excellent. Bones and teeth: Orbital mejia are intact. Sinus mejia show no fracture or deformity. Nasal bones and septum are intact. Visualized portions of the mandible demonstrate no fractures or subluxation. Zygomatic arches are intact. Pterygoid plates are intact. Visualized portions of the skull base and auditory canals are intact. Sinuses: Paranasal sinuses are aerated, without fluid levels, mucosal thickening, or mucoceles. Mastoid air cells are aerated. Soft tissues: Hematoma in the left prefrontal scalp. Otherwise no edema, masses, or fluid collections. No enlarged lymph nodes. No soft tissue lacerations or debris. Vascular: Visualized vascular structures appear normal in the absence of contrast. Bony vascular foramina and canals are intact. IMPRESSION: Pre frontal scalp hematoma. Facial osseous structures are intact. Dictated by: Saravanan Nelson M.D. on 09/08/2020 at 17:46 Approved by: Saravanan Nelson M.D. on 09/08/2020 at 17:47
--- NOTE | 2020-09-08 17:12 | DI.CT.S_ITS ---
PROCEDURE: CT CERVICAL SPINE WO CON INDICATIONS: pain sp fall TECHNIQUE: Noncontrast 3 mm thick sections acquired from the skull base to the T4 level. Sagittal and coronal reformats were then constructed. For radiation dose reduction, the following was used: automated exposure control, adjustment of mA and/or kV according to patient size. COMPARISON: None. FINDINGS: Image quality: Excellent. Bones: No fractures or dislocations. Visualized superior ribs are intact. Soft tissues: Prevertebral soft tissues are normal in thickness. No paravertebral hematomas. No apical pneumothoraces. IMPRESSION: No CT evidence of acute traumatic cervical spine injury. Dictated by: Saravanan Nelson M.D. on 09/08/2020 at 17:45 Approved by: Saravanan Nelson M.D. on 09/08/2020 at 17:46
--- NOTE | 2020-09-08 18:05 | DI.RAD.S_ITS ---
PROCEDURE: XR FOREARM RT 2V INDICATIONS: Pain status post fall TECHNIQUE: 2 views of the forearm were acquired. COMPARISON: None. FINDINGS: Bones: No fractures or dislocations. No suspicious bony lesions. Soft tissues: Soft tissue hematoma adjacent to the distal ulnar diaphysis. No suspicious soft tissue calcifications or masses. IMPRESSION: Soft tissue swelling presumably representing hematoma adjacent to the distal ulnar diaphysis. No fracture. Dictated by: Saravanan Nelson M.D. on 09/08/2020 at 18:37 Approved by: Saravanan Nelson M.D. on 09/08/2020 at 18:38
--- NOTE | 2020-09-08 18:07 | PC.NURSE ---
pt has abrasions on her face, goose egg on her forehead and left forearm. left forearm appears to be a large hematoma. SOPHIA Mckay evaluating pt.
[2020-09-08] MEDS: ACETAMINOPHEN 325 MG TABLET 975 MG PO (18:22)
[2020-09-08] MEDS: TET,DIPH,PERTUSS(ACELL),VAC/PF 0.5 ML SYRINGE IM (18:23)
[2020-09-08] MEDS: TRAMADOL 50 MG TABLET PO (19:14)
[2020-09-08 19:17] VITALS: BP 184/93; PULSE 89; RESP 14; O2SAT 97
--- NOTE | 2020-09-08 19:20 | ED_ITS ---
HPI - Fall <Sharyn Zamora FILM DRYING MACHINE OPERATOR-BC - Last Filed: 09/08/20 20:01> General Chief Complaint: Fall Stated Complaint: fall, hit face, swelling and headache Time Seen by Provider: 09/08/20 17:05 Source: patient and family Mode of arrival: Ambulatory Limitations: no limitations History of Present Illness HPI Narrative: The patient is an 84-year-old female nonsmoker with history of hypertension who presents with her for chief complaint of a ground level fall approximately 4:00 p.m. this afternoon. She had a mechanical fall in the yard, slipping with her foot on grass and fell hitting her face on the cement plantar. She does not know when her last tetanus was. She states she has abrasions all throughout her face, has a headache, feels lightheaded and dizzy. She denies any other pain or trauma initially, then notes that she has lot of bruising on her left forearm. She has not taken anything to feel better. She denies any nausea or vomiting. She initially denies any neck pain but then that her neck slightly hurts. She does not have any trouble opening or closing her mouth or chewing. She denies any chest pain or shortness of breath. She denies any hip pain or abdominal pain. Modified trauma activated upon arrival given patient's age and mechanism. Patient states that vision is within normal limits. Related Data Home Medications Medication Instructions Recorded Confirmed ASCORBIC ACID (#VITAMIN C) 500 - 1,000 mg PO QDAY #0 09/23/11 CHOLECALCIFEROL (VITAMIN D3) 5,000 units PO BID #0 06/21/13 [VITAMIN B 12] 1,000 mg PO QDAY #0 06/21/13 [lipo-cardia] #0 01/10/17 [turmeric] #0 01/10/17 [D-Trevor] #0 01/02/18 diltiazem HCl 30 mg PO DAILY 04/07/19 04/07/19 ipratropium bromide 1 spray INTRANASAL DIRECTED 04/07/19 04/07/19 levothyroxine 75 mcg PO DAILY 04/07/19 04/07/19 Previous Rx's Medication Instructions Recorded codeine-guaifenesin 5 ml PO QHS #60 ml 11/11/17 cyclobenzaprine 10 mg PO TID PRN #15 tab 12/23/19 naproxen [Naprosyn] 500 mg PO BID PRN #20 tab 12/23/19 tramadol 50 mg PO Q8H PRN #10 tab 09/08/20 Allergies Allergy/AdvReac Type Severity Reaction Status Date / Time adhesive Allergy Mild RASH, Verified 12/23/19 08:31 SEVERE BLISTERS azithromycin Allergy Mild RASH Verified 12/23/19 08:31 bacitracin Allergy Mild RASH Verified 12/23/19 08:31 [From Neosporin ([id number])] cefpodoxime Allergy Mild RASH Verified 12/23/19 08:31 neomycin Allergy Mild RASH Verified 12/23/19 08:31 [From Neosporin ([id number])] polymyxin B Allergy Mild RASH Verified 12/23/19 08:31 [From Neosporin ([id number])] Sulfa (Sulfonamide Allergy Mild RASH Verified 12/23/19 08:31 Antibiotics) tetracycline Allergy Mild RASH, Verified 12/23/19 08:31 SYNCOPE benzonatate Allergy Unknown Verified 12/23/19 08:31 losartan [LOSARTAN] Allergy Unknown Verified 12/23/19 08:31 aspirin AdvReac Intermediate RECTAL Verified 09/28/19 06:45 BLEED levofloxacin AdvReac Intermediate HEEL PAIN Verified 09/28/19 06:45 AND TENDONTITIS carvedilol AdvReac Mild MUSCLE Verified 09/28/19 06:45 WEAKNESS ciprofloxacin AdvReac Mild HEEL PAIN Verified 09/28/19 06:45 metoprolol AdvReac Mild WEAK, Verified 09/28/19 06:45 NAUSEA Review of Systems <MADELINE Ambrose-BC - Last Filed: 09/08/20 20:01> Review of Systems Narrative: GENERAL: Denies chills, fatigue, malaise, fever, sweats. HEENT: Denies sinus pain, ear pain, sore throat, difficulty swallowing, dizziness. RESPIRATORY: Denies dyspnea, cough, wheezing, hemoptysis, sputum. CARDIOVASCULAR: Denies chest pain, palpitations, orthopnea, edema, GASTROINTESTINAL: Denies nausea, vomiting, abdominal pain, diarrhea, constipati on, melena. : Denies dysuria, frequency, incontinence, hematuria, urinary retention. MUSCULOSKELETAL: See HPI SKIN: See HPI NEUROLOGIC: Denies weakness, headache, numbness, change in speech, confusion, seizures, incoordination. PSYCHIATRIC: No concerning psychosocial issues. 12 point review of systems is negative except for those stated above Patient History <LYNSEY Ambrose - Last Filed: 09/08/20 20:01> Medical History Hypertension (Acute) Social History Smoking Status: Never smoker Smoking Status: Never smoker alcohol intake frequency: holidays/special occasions only Substance Use Type: does not use Exam <LYNSEY Ambrose - Last Filed: 09/08/20 20:01> Narrative Exam Narrative: GENERAL: This is a well-nourished, well-developed patient, in mild distress. HEAD: Atraumatic. Normocephalic. No temporal or scalp tenderness. EYES: Pupils equal round and reactive. Extraocular motions intact. No scleral icterus. No injection or drainage. Periorbital ecchymosis noted left side. ENT: Nose without bleeding, purulent drainage or septal hematoma. Throat without erythema, tonsillar hypertrophy or exudate. Uvula midline. Airway patent. Able to open and close mouth well. No trismus. NECK: Trachea midline. No JVD or lymphadenopathy. Supple, nontender, no meningeal signs. CARDIOVASCULAR: Regular rate and rhythm RESPIRATORY: Clear to auscultation. Breath sounds equal bilaterally. No wheezes, rales, or rhonchi. No cough. No increased respiratory effort. No accessory muscle use. GASTROINTESTINAL: Abdomen soft, non-tender, nondistended. No hepato- splenomegaly, or palpable masses. No guarding. EXTREMITIES: No clubbing, cyanosis, or edema. No joint tenderness, effusion, or edema noted. BACK: Pain to C-spine palpation that is midline. No palpable step-offs or deformities. TN L-spine are Nontender without deformity or crepitance. No flank tenderness. NEURO: AOx3. Interactive. Age appropriate. Stable gait. SKIN: Abrasions noted along left side of face, left forehead down left maxilla left lip left side of chin. No linear lacerations. Hematoma forming on left forehead. Two by 3 cm hematoma noted on left forearm. Initial Vital Signs Initial Vital Signs: Vital Signs Temperature 98.3 F 09/08/20 16:18 Pulse Rate 89 09/08/20 16:18 Respiratory Rate 16 09/08/20 16:18 Blood Pressure 164/110 H 09/08/20 16:18 Pulse Oximetry 97 09/08/20 16:18 <Lorie Moreland DO - Last Filed: 09/09/20 07:43> Initial Vital Signs Initial Vital Signs: Vital Signs Temperature 98.3 F 09/08/20 16:18 Pulse Rate 89 09/08/20 16:18 Respiratory Rate 16 09/08/20 16:18 Blood Pressure 164/110 H 09/08/20 16:18 Pulse Oximetry 97 09/08/20 16:18 Scores <LYNSEY Ambrose - Last Filed: 09/08/20 20:01> [place] CT Head Rule Age <16 years old: No Patient on blood thinners: No Seizure after injury: No Exclusion: Patient NOT Excluded, Proceed to next steps GCS < 15 at 2 hr post trauma: No Suspected open or depressed skull fracture: No Any sign of basilar skull fracture (hemotympanum, raccoon eyes, Sepulveda's sign, CSF michael-/rhinorrhea): No Two or more episodes of vomiting: No Age greater or equal to 65 years: Yes Retrograde amnesia to the event greater or equal to 30 min: No Dangerous Mechanism (pedestrian vs. mv, occupant ejected from mv, fall from >3 ft or > 5 stairs): No Recommendation: Consider CT. The [place] Head CT Rule cannot rule out need for Imaging. GCS Ana coma scale eye opening: Spontaneous Ana coma scale verbal response: Orientated Ana coma scale motor response: Obey commands Ana coma scale total score: 15 Course <LYNSEY Ambrose - Last Filed: 09/08/20 20:01> Orders Ordered: Discontinued Medications Acetaminophen (Tylenol) 975 mg PO NOW ONE Stop: 09/08/20 18:06 Last Admin: 09/08/20 18:22 Dose: 975 mg Documented by: SOURAV Diphtheria/Tetanus/Acell Pertussis (Adacel) 0.5 ml IM .ONCE ONE Stop: 09/08/20 18:06 Last Admin: 09/08/20 18:23 Dose: 0.5 ml Documented by: RSTONE Tramadol HCl (Ultram) 50 mg PO NOW ONE Stop: 09/08/20 18:58 Last Admin: 09/08/20 19:14 Dose: 50 mg Documented by: KGALLAG Vital Signs Vital signs: Vital Signs - 8 hr 09/08/20 16:18 09/08/20 19:17 Temperature 98.3 F Pulse Rate 89 89 Respiratory Rate 16 14 Blood Pressure 164/110 H 184/93 H Pulse Oximetry 97 97 <Lorie Moreland DO - Last Filed: 09/09/20 07:43> Orders Ordered: Discontinued Medications Acetaminophen (Tylenol) 975 mg PO NOW ONE Stop: 09/08/20 18:06 Last Admin: 09/08/20 18:22 Dose: 975 mg Documented by: SOURAV Diphtheria/Tetanus/Acell Pertussis (Adacel) 0.5 ml IM .ONCE ONE Stop: 09/08/20 18:06 Last Admin: 09/08/20 18:23 Dose: 0.5 ml Documented by: OLGAE Tramadol HCl (Ultram) 50 mg PO NOW ONE Stop: 09/08/20 18:58 Last Admin: 09/08/20 19:14 Dose: 50 mg Documented by: KGMYRAAG Vital Signs Vital signs: Vital Signs - 8 hr 09/08/20 16:18 09/08/20 19:17 Temperature 98.3 F Pulse Rate 89 89 Respiratory Rate 16 14 Blood Pressure 164/110 H 184/93 H Pulse Oximetry 97 97 MDM - Fall <LYNSEY Ambrose - Last Filed: 09/08/20 20:01> Imaging Data Extremity x-ray #1: Radiologist's Impression: [address] [place] [id number] XRay Report Signed Patient: Cecily Bain [facility]#: [id number] : 8Acct:[id number] Age/Sex: 84 / FDate of Service: 09/08/20 Loc: ED Accession Number: [id number] Procedure: XR forearm LT 2V Ordering Provider: Sharyn Zamora PROCEDURE: XR FOREARM RT 2V INDICATIONS: Pain status post fall TECHNIQUE: 2 views of the forearm were acquired. COMPARISON: None. FINDINGS: Bones: No fractures or dislocations. No suspicious bony lesions. Soft tissues: Soft tissue hematoma adjacent to the distal ulnar diaphysis. No suspicious soft tissue calcifications or masses. IMPRESSION: Soft tissue swelling presumably representing hematoma adjacent to the distal ulnar diaphysis. No fracture. Dictated by: Saravanan Nelson M.D. on 09/08/2020 at 18:37 Approved by: Saravanan Nelson M.D. on 09/08/2020 at 18:38 CT scan - head: Radiologist's Impression: [address] [place] [id number] Scan Report Signed Patient: Cecily Bain I[facility]#: [id number] : 8Acct:[id number] Age/Sex: 84 / FDate of Service: 09/08/20 Loc: ED Accession Number: [id number] Procedure: CT head/brain wo con Ordering Provider: Sharyn Zamora PROCEDURE: CT HEAD/BRAIN WO CON INDICATIONS: glf TECHNIQUE: Noncontrast 4.5 mm thick angled axial sections acquired from the foramen magnum to the vertex, with coronal and sagittal reformats. For radiation dose reduction, the following was used: automated exposure control, adjustment of mA and/or kV according to patient size. COMPARISON: None. FINDINGS: Image quality: Excellent. CSF spaces: Basal cisterns are patent. No extra-axial fluid collections. Ventricles are normal in size and shape. Brain: No midline shift. No intracranial masses or hemorrhage. Call-white matter interface is normal. Skull and face: Calvarium and visualized facial bones are intact, without suspicious lesions. Subgaleal scalp hematoma in the left prefrontal region. Sinuses: Visualized sinuses and mastoids are clear. IMPRESSION: No acute intracranial abnormality. Scalp hematoma in the left prefrontal region. Dictated by: Saravanan Nelson M.D. on 09/08/2020 at 17:42 Approved by: Saravanan Nelson M.D. on 09/08/2020 at 17:[address]: Radiologist's Impression: [address] [place] [id number] [address] Scan Report Signed Patient: Cecily Bain [facility]#: [id number] : 8Acct:[id number] Age/Sex: 84 / FDate of Service: 09/08/20 Loc: ED Accession Number: [id number] Procedure: CT facial bones wo con Ordering Provider: Sera,Sharyn FILM DRYING MACHINE OPERATOR-BC PROCEDURE: CT FACIAL BONES WO CON INDICATIONS: pain, swelling sp fall TECHNIQUE: Noncontrast 2.5 mm thick axial images acquired from the mandible through the frontal sinuses, with coronal and sagittal reformatting. For radiation dose reduction, the following was used: automated exposure control, adjustment of mA and/or kV according to patient size. COMPARISON: None. FINDINGS: Image quality: Excellent. Bones and teeth: Orbital mejia are intact. Sinus mejia show no fracture or deformity. Nasal bones and septum are intact. Visualized portions of the mandible demonstrate no fractures or subluxation. Zygomatic arches are intact. Pterygoid plates are intact. Visualized portions of the skull base and auditory canals are intact. Sinuses: Paranasal sinuses are aerated, without fluid levels, mucosal thickening, or mucoceles. Mastoid air cells are aerated. Soft tissues: Hematoma in the left prefrontal scalp. Otherwise no edema, masses, or fluid collections. No enlarged lymph nodes. No soft tissue lacerations or debris. Vascular: Visualized vascular structures appear normal in the absence of contrast. Bony vascular foramina and canals are intact. IMPRESSION: Pre frontal scalp hematoma. Facial osseous structures are intact. Dictated by: Saravanan Nelson M.D. on 09/08/2020 at 17:46 Approved by: Saravanan Nelson M.D. on 09/08/2020 at 17:47 CT - cervical spine: Radiologist's Impression: [address] [place] [address] CT Scan Report Signed Patient: Cecily Bain [facility]#: [id number] : 8Acct:[id number] Age/Sex: 84 / FDate of Service: 09/08/20 Loc: ED Accession Number: [id number] Procedure: CT cervical spine wo con Ordering Provider: Sharyn Zamora-ALYSON PROCEDURE: CT CERVICAL SPINE WO CON INDICATIONS: pain sp fall TECHNIQUE: Noncontrast 3 mm thick sections acquired from the skull base to the T4 level. Sagittal and coronal reformats were then constructed. For radiation dose reduction, the following was used: automated exposure control, adjustment of mA and/or kV according to patient size. COMPARISON: None. FINDINGS: Image quality: Excellent. Bones: No fractures or dislocations. Visualized superior ribs are intact. Soft tissues: Prevertebral soft tissues are normal in thickness. No paravertebral hematomas. No apical pneumothoraces. IMPRESSION: No CT evidence of acute traumatic cervical spine injury. Dictated by: Saravanan Nelson M.D. on 09/08/2020 at 17:45 Approved by: Saravanan Nelson M.D. on 09/08/2020 at 17:46 [facility] Narrative Medical decision making narrative: The patient is an 84-year-old female who presents with a chief complaint of facial head and neck pain after ground level fall hitting her face on the cement plantar. Modified trauma activated upon arrival. Head CT is negative. Patient was placed in a collar and CT of her C- spine is negative. Facial CT also negative. No lacerations that need closure, discussed monitor for signs and symptoms of abrasion. Forearm x-ray also negative. Patient denies anything, overall does have a reassuring exam. She is given Tylenol and tramadol for pain. I discussed at length rest, ice, monitoring for any acute concerns and follow up with primary care provider. Encouraged rest of the few days. Given her symptoms I do believe that she has a concussion at this point time, encouraged rest and taking it easy. Encouraged follow-up with primary care provider in the next few days as well as came back to ER for acute concerns. Patient also received tetanus that she is unsure of her last tetanus state. No questions or concerns upon discharge states understanding of return precautions as well as follow-up care. Discharge Plan Departure Patient Disposition: Home Clinical Impression: Fall from ground level, Abrasion Concussion without loss of consciousness Qualifiers: Encounter type: initial encounter Qualified Code(s): S06.0X0A - Concussion without loss of consciousness, initial encounter Contusion Qualifiers: Encounter type: initial encounter Contusion area: head Contusion of head detail: unspecified part of head Qualified Code(s): S00.93XA - Contusion of unspecified part of head, initial encounter Traumatic hematoma of left forearm Qualifiers: Encounter type: initial encounter Qualified Code(s): S50.12XA - Contusion of left forearm, initial encounter Discharge Date/Time: 09/08/20 19:48 Instructions: DI for Concussion, DI for Contusion, DI for Hematoma (Bruise), How To Perform RICE (Rest, Ice, Compress, Elevate), How to Prevent Falls, DI for Abrasion Activity Restrictions/Additional Instructions: Thank you for trusting us with your care today Today your head neck and facial CTs came back with no acute findings. As I discussed, your forearm x-ray shows no acute fracture. This does not rule out a soft tissue injury such as a ligament or tendon injury. It is important that you follow up with primary care provider, especially if worsening or no improvement. There can be fractures that did not show up on initial x-ray. Please monitor your abrasions for signs and symptoms of infection. Please rest over the next few days please use [id number] pain medications as needed and able. I sent a small prescription of tramadol to [facility]. I have given you a prescription of a narcotic for pain. Be aware that this can be constipating and sedating. I encouraged taking with a stool softener, pushing fluids and fiber. Do not take and drive, operate heavy machinery, etc. Do not combine it with any other sedating substances such as alcohol. The combination of narcotics and alcohol and/or other sedatives can be lethal. Please follow-up with primary care provider next few days Please come back to the emergency department for any acute concerns Prescriptions: New tramadol 50 mg tablet 50 mg PO Q8H PRN (Reason: pain) Qty: 10 RF: 0 No Action ASCORBIC ACID (#VITAMIN C) 500 - 1,000 mg PO QDAY Qty: 0 RF: 0 CHOLECALCIFEROL (VITAMIN D3) 5,000 units PO BID Qty: 0 RF: 0 [VITAMIN B 12] 1,000 mg PO QDAY Qty: 0 RF: 0 [lipo-cardia] Qty: 0 RF: 0 [turmeric] Qty: 0 RF: 0 codeine-guaifenesin 100 MG/10 MG liquid 5 ml PO QHS Qty: 60 RF: 0 [D-Trevor] Qty: 0 RF: 0 levothyroxine 75 mcg tablet 75 mcg PO DAILY RF: 0 diltiazem HCl 30 mg tablet 30 mg PO DAILY RF: 0 ipratropium bromide 42 mcg (0.06 %) spray,non-aerosol 1 spray Intranasal DIRECTED RF: 0 cyclobenzaprine 10 mg tablet 10 mg PO TID PRN (Reason: muscle spasm) Qty: 15 RF: 0 naproxen [Naprosyn] 500 mg tablet 500 mg PO BID PRN (Reason: pain) Qty: 20 RF: 0 Referrals: Kailee Garibay MD [Primary Care Provider] - <Lorie Moreland DO - Last Filed: 09/09/20 07:43> Cosign ED Attending Cosignature Attestation: I was immediately available in the department for consultation. Documentation has been reviewed. I agree with assessment and plan.
== END 2020-09-08 19:48 | disposition home or self-care (01) ==
PROVIDERS: Emergency Provider Nurse Practitioner Family; PCP Internal Medicine
DX: S06.0X0A Concussion without loss of consciousness, initial encounter (principal); S00.93XA Contusion of unspecified part of head, initial encounter; S50.12XA Contusion of left forearm, initial encounter; S00.81XA Abrasion of other part of head, initial encounter; Z23 Encounter for immunization; R42 Dizziness and giddiness; R51.9 Headache, unspecified; W19.XXXA Unspecified fall, initial encounter
CPT/HCPCS: 70450; 70486; 72125; 73090; 90471; 99284; 99285; 90715

== ENCOUNTER → 2020-09-26 14:40 | Outpatient (ROUT) | payer MEDICARE, OTHER, SELFPAY ==
[2020-09-26 14:56] LABS: BUN Creatinine Ratio 20.6 (6-22); Blood Urea Nitrogen 13 mg/dL (7-17); Calcium 9.1 mg/dL (8.4-10.2); Carbon Dioxide 30 mmol/L (22-32); Chloride 99 mmol/L (98-107); Estimated Glomerular Filt Rate > 60.0 mL/min (>60); Glucose 105 mg/dL (80-110); HEMOLYSIS < 15 (0-50); Potassium 4.3 mmol/L (3.4-5.1); Sodium 135 mmol/L (137-145)
[2020-09-26 15:11] LABS: Erythrocyte Sedimentation Rate 10 MM/HR (0-20)
== END ==
PROVIDERS: PCP Internal Medicine; Visit Provider Internal Medicine
DX: G50.0 Trigeminal neuralgia (principal); I10 Essential (primary) hypertension
CPT/HCPCS: 80048; 85651

== ENCOUNTER → 2020-10-04 14:09 | Outpatient (CLI) | payer MEDICARE, OTHER, SELFPAY ==
--- NOTE | 2020-10-04 14:11 | DI.MRI.S_ITS ---
PROCEDURE: MR HEAD/BRAIN WO/W CON INDICATIONS: Other abnormalities of gait and mobility TECHNIQUE: Noncontrast axial T1 spin echo, axial T2 fast spin echo, sagittal and axial FLAIR, coronal T2 fast spin echo, axial gradient echo, axial diffusion and ADC through the brain. After the administration of contrast, axial and coronal T1 spin echo with fat saturation through the brain. COMPARISON: [facility], MR, BRAIN WITH AND WITHOUT CONTRAS, 01/03/2009, 10:05. FINDINGS: Image quality: Excellent. CSF spaces: Basal cisterns are patent. No extra-axial fluid collections. Ventricles are normal in size and shape. Brain: No midline shift. No intracranial bleeds or masses. No abnormal intracranial enhancement. There is cerebral volume loss for age. There is periventricular white matter chronic small vessel ischemic change. The brainstem appears normal. Diffusion-weighted images demonstrate no acute ischemic insults. No chronic ischemic insults. Normal intravascular flow voids are present. Skull and face: Calvarial marrow is normal in signal. Orbits appear normal. Sinuses: Sinuses and mastoids appear clear. IMPRESSION: Moderate microvascular atherosclerotic change in the deep white matter of each hemisphere but no sign of mass, hemorrhage, acute or subacute stroke, or hydrocephalus. Dictated by: Lazarus Jordan M.D. on 10/04/2020 at 15:53 Approved by: Lazarus Jordan M.D. on 10/04/2020 at 15:54
== END ==
PROVIDERS: PCP Internal Medicine; Referring Provider Internal Medicine; Visit Provider Internal Medicine
DX: R26.89 Other abnormalities of gait and mobility (principal)
CPT/HCPCS: 70553

== ENCOUNTER → 2020-11-16 19:13 | Outpatient (ROUT) | payer MEDICARE, OTHER, SELFPAY ==
[2020-11-16 19:23] LABS: Add Manual Diff / Slide Review NO; Basophils Absolute Auto 0 /uL (0-100); Basophils Percent Auto 0.9 % (0-2); Eosinophils Absolute Auto 200 /uL (0-450); Eosinophils Percent Auto 4.6 % (2-4); Hematocrit 37.5 % (36-46); Hemoglobin 12.6 g/dL (12.0-16.0); Lymphocytes Absolute Auto 1600 /uL (1100-4500); Lymphocytes Percent Auto 31.5 % (25-40); Mean Corpuscular HGB Conc 33.6 % (30-36); Mean Corpuscular Volume 95.2 fL (80-100); Monocytes Absolute Auto 400 /uL (0-900); Monocytes Percent Auto 8.3 % (3-14); Neutrophils Absolute Auto 2700 /uL (1500-7000); Neutrophils Percent Auto 54.7 % (50-75); Platelet Count 284 X10^3/uL (150-400); Red Blood Cell Count 3.94 X10^6/uL (4.0-5.2); Red Cell Distribution Width 13.2 % (11.6-14.8)
[2020-11-16 19:30] LABS: HEMOLYSIS < 15 (0-50); Iron 61 ug/dL (37-170)
[2020-11-16 19:31] LABS: Alanine Aminotransferase 16 IU/L (<35); Albumin 3.9 g/dL (3.5-5.0); Albumin Globulin Ratio 1.3 (1.0-2.8); Alkaline Phosphatase 83 U/L (38-126); Aspartate Aminotransferase 26 IU/L (14-36); BUN Creatinine Ratio 22.2 (6-22); Bilirubin Total 0.4 mg/dL (0.2-1.3); Blood Urea Nitrogen 16 mg/dL (7-17); Calcium 9.3 mg/dL (8.4-10.2); Carbon Dioxide 28 mmol/L (22-32); Chloride 102 mmol/L (98-107); Estimated Glomerular Filt Rate > 60.0 mL/min (>60); Globulin 3.1 g/dL (1.7-4.1); Glucose 91 mg/dL (80-110); HEMOLYSIS < 15 (0-50); Magnesium 2.1 mg/dL (1.6-2.3); Potassium 3.9 mmol/L (3.4-5.1); Sodium 135 mmol/L (137-145)
[2020-11-16 19:43] LABS: Percent Iron Saturation 22 % (15-50); Total Iron Binding Capacity 276 ug/dL (265-497); Transferrin 206 mg/dL (206-381)
[2020-11-16 20:02] LABS: TSH w/ Reflex to FT4 3.37 uIU/mL (0.47-4.68)
[2020-11-16 20:05] LABS: Ferritin 87 ng/mL (11-264)
== END ==
PROVIDERS: PCP Internal Medicine; Visit Provider Physician Assistant
DX: I10 Essential (primary) hypertension (principal); E03.9 Hypothyroidism, unspecified; E78.5 Hyperlipidemia, unspecified; R55 Syncope and collapse
CPT/HCPCS: 80053; 82728; 83540; 83550; 83735; 84443; 85025

== ENCOUNTER → 2020-12-14 15:14 | Outpatient (ROUT) | payer MEDICARE, OTHER, SELFPAY | PROVIDERS: PCP Internal Medicine; Visit Provider Physician Assistant | DX: R35.0 Frequency of micturition (principal) | CPT/HCPCS: 87086 ==

== ENCOUNTER → 2021-01-08 15:51 | Outpatient (ROUT) | payer MEDICARE, OTHER, SELFPAY | PROVIDERS: PCP Internal Medicine; Visit Provider Physician Assistant | DX: N39.0 Urinary tract infection, site not specified (principal) | CPT/HCPCS: 87077; 87086; 87186 ==

== ENCOUNTER 2021-02-11 13:14 | Emergency (ER) | payer MEDICARE, OTHER, SELFPAY ==
[2021-02-11 13:16] VITALS: BP 172/84; PULSE 78; RESP 22; TEMP 36.6; O2SAT 100
--- NOTE | 2021-02-11 13:24 | DI.CT.S_ITS ---
PROCEDURE: CT HEAD/BRAIN WO CON INDICATIONS: fall TECHNIQUE: Noncontrast 4.5 mm thick angled axial sections acquired from the foramen magnum to the vertex, with coronal and sagittal reformats. For radiation dose reduction, the following was used: automated exposure control, adjustment of mA and/or kV according to patient size. COMPARISON: [facility], CT, CT HEAD/BRAIN WO CON, 09/08/2020, 17:15. FINDINGS: Image quality: Excellent. CSF spaces: Basal cisterns are patent. No extra-axial fluid collections. The ventricles are symmetric in size and shape. Brain: No intracranial bleeds or masses. There is cerebral volume loss for age, with resultant ventricular and sulcal prominence. There are periventricular and deep white matter chronic small vessel ischemic changes. There is intracranial internal carotid artery atherosclerosis. Skull and face: Calvarium and visualized facial bones appear intact, without suspicious lesions. Soft tissue swelling of the left forehead. Sinuses: Visualized sinuses and mastoids are clear. IMPRESSION: No acute intracranial abnormality. Dictated by: Curt Lu M.D. on 02/11/2021 at 12:58 Approved by: Curt Lu M.D. on 02/11/2021 at 13:05
--- NOTE | 2021-02-11 13:24 | DI.CT.S_ITS ---
PROCEDURE: CT CERVICAL SPINE WO CON INDICATIONS: fall TECHNIQUE: Noncontrast 3 mm thick sections acquired from the skull base to the T4 level. Sagittal and coronal reformats were then constructed. For radiation dose reduction, the following was used: automated exposure control, adjustment of mA and/or kV according to patient size. COMPARISON: [facility], CT, CT CERVICAL SPINE WO CON, 09/08/2020, 17:15. FINDINGS: Image quality: Excellent. Bones: No fractures or dislocations. Visualized superior ribs are intact. Multilevel facet arthrosis and mild multilevel degenerative disc disease. Soft tissues: Prevertebral soft tissues are normal in thickness. No paravertebral hematomas. No apical pneumothoraces. IMPRESSION: 1. No acute cervical spine fracture or traumatic malalignment. 2. Multilevel cervical spondylosis. Dictated by: Curt Lu M.D. on 02/11/2021 at 13:05 Approved by: Curt Lu M.D. on 02/11/2021 at 13:10
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
--- NOTE | 2021-02-11 15:54 | DI.RAD.S_ITS ---
PROCEDURE: XR ELBOW LT MIN 3V INDICATIONS: pain fall TECHNIQUE: 3 views of the elbow were acquired. COMPARISON: [facility], CR, XR ELBOW RT 2V, 12/23/2019, 8:49. FINDINGS: Bones: No displaced fracture or definite acute fracture. There is a 1.5 x 0.5 centimeter region of lucency within the lateral epicondyle of uncertain etiology. Joint spaces appear preserved. Soft tissues: No elbow joint effusion. No suspicious soft tissue calcifications. IMPRESSION: No radiographic evidence of acute bony abnormality. Indeterminate 1.5 x 0.5 centimeter region of lucency in the lateral epicondyle. This may be the sequela of prior trauma versus infiltrative process or intraosseous cyst. Consider short interval follow-up radiographs to assess for stability. Dictated by: Curt Lu M.D. on 02/11/2021 at 15:12 Approved by: Curt Lu M.D. on 02/11/2021 at 15:24
[2021-02-11 16:05] VITALS: BP 156/87; PULSE 67; RESP 22; O2SAT 98
== END 2021-02-11 16:40 | disposition home or self-care (01) ==
PROVIDERS: Emergency Provider Emergency Medicine; PCP Physician Assistant
DX: S13.9XXA Sprain of joints and ligaments of unspecified parts of neck, initial encounter (principal); S51.012A Laceration without foreign body of left elbow, initial encounter; W01.198A Fall on same level from slipping, tripping and stumbling with subsequent striking against other object, initial encounter; S09.90XA Unspecified injury of head, initial encounter
CPT/HCPCS: 70450; 72125; 73080; 81003; 99282; 99284

== ENCOUNTER → 2021-03-09 19:33 | Outpatient (ROUT) | payer MEDICARE, OTHER, SELFPAY ==
[2021-03-09 19:42] LABS: HEMOLYSIS < 15 (0-50)
[2021-03-09 19:51] LABS: Alanine Aminotransferase 17 IU/L (<35); Albumin 4.1 g/dL (3.5-5.0); Albumin Globulin Ratio 1.4 (1.0-2.8); Alkaline Phosphatase 75 U/L (38-126); Aspartate Aminotransferase 33 IU/L (14-36); Bilirubin Total 0.4 mg/dL (0.2-1.3); Blood Urea Nitrogen 14 mg/dL (7-17); Calcium 9.2 mg/dL (8.4-10.2); Carbon Dioxide 26 mmol/L (22-32); Chloride 102 mmol/L (98-107); Estimated Glomerular Filt Rate > 60.0 mL/min (>60); Globulin 2.9 g/dL (1.7-4.1); Glucose 114 mg/dL (80-110); HEMOLYSIS < 15 (0-50); Potassium 4.2 mmol/L (3.4-5.1); Sodium 136 mmol/L (137-145)
[2021-03-09 19:52] LABS: Add Manual Diff / Slide Review NO; Basophils Absolute Auto 0 /uL (0-100); Basophils Percent Auto 0.8 % (0-2); Eosinophils Absolute Auto 100 /uL (0-450); Eosinophils Percent Auto 2.5 % (2-4); Hematocrit 37.7 % (36-46); Lymphocytes Absolute Auto 1700 /uL (1100-4500); Lymphocytes Percent Auto 30.1 % (25-40); Mean Corpuscular HGB Conc 34.5 % (30-36); Mean Corpuscular Hemoglobin 32.5 PG (26-34); Mean Corpuscular Volume 94.1 fL (80-100); Monocytes Absolute Auto 400 /uL (0-900); Monocytes Percent Auto 7.2 % (3-14); Neutrophils Absolute Auto 3400 /uL (1500-7000); Neutrophils Percent Auto 59.4 % (50-75); Platelet Count 259 X10^3/uL (150-400); Red Blood Cell Count 4.01 X10^6/uL (4.0-5.2); Red Cell Distribution Width 14.1 % (11.6-14.8); White Blood Cell Count 5.7 X10^3/uL (4.5-11.0)
[2021-03-09 19:56] LABS: Iron 63 ug/dL (37-170)
[2021-03-09 20:01] LABS: Percent Iron Saturation 25 % (15-50); Total Iron Binding Capacity 254 ug/dL (265-497); Transferrin 209 mg/dL (206-381)
[2021-03-09 20:25] LABS: Ferritin 56 ng/mL (11-264)
== END ==
PROVIDERS: PCP Physician Assistant; Visit Provider Physician Assistant
DX: R35.0 Frequency of micturition (principal); R53.1 Weakness; R53.82 Chronic fatigue, unspecified; E03.9 Hypothyroidism, unspecified; R00.2 Palpitations; D64.9 Anemia, unspecified
CPT/HCPCS: 80053; 82728; 83540; 83550; 84443; 85025

== ENCOUNTER 2021-05-14 16:24 | Emergency (ER) | payer MEDICARE, OTHER, SELFPAY ==
[2021-05-14 16:35] VITALS: BP 150/90; PULSE 94; RESP 16; TEMP 36.7; O2SAT 97; BMI 29.8
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
--- NOTE | 2021-05-14 19:10 | DI.RAD.S_ITS ---
PROCEDURE: XR RIBS LT MIN 3V W CXR1V INDICATIONS: fall with left lateral rib pain TECHNIQUE: 2 views of the left ribs were acquired, along with a single view chest. COMPARISON: None. FINDINGS: Surgical changes and devices: None. Bones and chest wall: No fractures or dislocations. No suspicious bony lesions. Overlying soft tissues appear unremarkable. Lungs and pleura: No pleural effusions or pneumothorax. Lungs appear clear. Mediastinum: Mediastinal contours appear normal. Heart size is normal. IMPRESSION: No trauma found. Incidental note is made of a implanted cardiac monitoring device overlying the left heart. Dictated by: Lazarus Jordan M.D. on 05/14/2021 at 20:29 Approved by: Lazarus Jordan M.D. on 05/14/2021 at 20:30
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
[2021-05-14] MEDS: ACETAMINOPHEN 325 MG TABLET 650 MG PO (20:19)
[2021-05-14] MEDS: HYDROCODONE/ACET 5/325 PREPACK 1 BOTTLE MISC (20:54)
[2021-05-14 21:03] VITALS: BP 169/100; PULSE 75; RESP 16; TEMP 36.4; O2SAT 98
== END 2021-05-14 21:03 | disposition home or self-care (01) ==
PROVIDERS: Emergency Provider Emergency Medicine; PCP Physician Assistant
DX: S00.83XA Contusion of other part of head, initial encounter (principal); S63.621A Sprain of interphalangeal joint of right thumb, initial encounter; S20.211A Contusion of right front wall of thorax, initial encounter; M25.562 Pain in left knee; M79.644 Pain in right finger(s); V19.9XXA Pedal cyclist (driver) (passenger) injured in unspecified traffic accident, initial encounter
CPT/HCPCS: 70450; 71101; 73130; 73562; 99284

== ENCOUNTER 2021-05-21 08:20 | Emergency (ER) | payer MEDICARE, OTHER, SELFPAY ==
[2021-05-21] VITALS (12 sets, daily range): BP systolic 138–186; BP diastolic 73–96; PULSE 59–72; RESP 16; TEMP 36.8; O2SAT 96–99; BMI 29.7
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
--- NOTE | 2021-05-21 09:50 | DI.RAD.S_ITS ---
PROCEDURE: XR HIP W PEL IF DONE LT 2V INDICATIONS: swelling, bruising, pain s/p trauma TECHNIQUE: AP pelvis with lateral view(s) of the left hip(s). COMPARISON: [facility], , HIP 2V RIGHT, 05/15/2007, 16:22. FINDINGS: Bones: Moderate bilateral hip joint osteoarthritic changes are seen. No fractures or dislocations. No evidence of avascular necrosis of femoral head. Pelvic ring appears intact. No suspicious bony lesions. Degenerative disc disease in visualized lower lumbar spine is seen. Soft tissues: The visualized bowel gas pattern is normal. No suspicious soft tissue calcifications. IMPRESSION: Moderate bilateral hip joint osteoarthritis. No hip fracture or dislocation. No evidence of avascular necrosis. Dictated by: Elio Martinez M.D. on 05/21/2021 at 11:37 Approved by: Elio Martinez M.D. on 05/21/2021 at 11:38
--- NOTE | 2021-05-21 09:50 | DI.RAD.S_ITS ---
PROCEDURE: XR TIBIA FIBULA LT 2V INDICATIONS: swelling, bruising, pain s/p trauma FROM May TECHNIQUE: 3 views of the tibia and fibula were acquired. COMPARISON: None. FINDINGS: Bones: No fractures or dislocations. No suspicious bony lesions. Soft tissues: No suspicious soft tissue calcifications or masses. Anterior left knee and left lower leg soft tissue swelling is seen. IMPRESSION: No left lower leg fracture or dislocation. Mild anterior soft tissue swelling particularly over left knee joint. Dictated by: Elio Martinez M.D. on 05/21/2021 at 11:35 Approved by: Elio Martinez M.D. on 05/21/2021 at 11:36
--- NOTE | 2021-05-21 09:50 | DI.US.S_ITS ---
PROCEDURE: US PERIPH VENOUS LOW EXTREM LT INDICATIONS: EDEMA, BRUISING POST TRAUMA TECHNIQUE: Real-time imaging, as well as color and pulse Doppler interrogation, were performed of the lower extremity deep veins from the inguinal ligament to the popliteal fossa. COMPARISON: None. FINDINGS: The common femoral, femoral and popliteal veins are normally compressible, and free of intraluminal thrombus. Color and pulse Doppler demonstrate normal phasic intraluminal flow. There is normal augmentation response to distal compression maneuver. Complex fluid collection likely representing hematoma noted anterior to the left knee. IMPRESSION: No evidence of deep vein thrombosis involving the left lower extremity. Dictated by: Nae Holguin MD, PhD on 05/21/2021 at 10:45 Approved by: Nae Holguin MD, PhD on 05/21/2021 at 10:46
--- NOTE | 2021-05-21 09:50 | DI.RAD.S_ITS ---
PROCEDURE: XR KNEE LT 3V INDICATIONS: swelling, bruising, pain s/p trauma FROM May TECHNIQUE: 3 views of the knee were acquired. COMPARISON: [facility], [facility], XR KNEE LT 3V, 05/14/2021, 16:52. FINDINGS: Bones: No fractures or dislocations. Mild to moderate tricompartmental osteoarthritis is seen. No suspicious bony lesions. Soft tissues: Anterior left knee soft tissue swelling is no decreased compared to previous study. No joint effusion. No suspicious soft tissue calcifications. IMPRESSION: No left knee fracture or dislocation. [id number] tricompartmental osteoarthritis. No significant joint effusion. Interval decrease in the extent of left anterior knee soft tissue swelling. Dictated by: Elio Martinez M.D. on 05/21/2021 at 11:36 Approved by: Elio Martinez M.D. on 05/21/2021 at 11:37
[2021-05-21] MEDS: HYDROCODONE/ACET 5/325 TABLET 1 TAB PO (10:14)
[2021-05-21 10:42] LABS: Add Manual Diff / Slide Review NO; Basophils Absolute Auto 0 /uL (0-100); Basophils Percent Auto 0.8 % (0-2); Eosinophils Absolute Auto 200 /uL (0-450); Eosinophils Percent Auto 2.9 % (2-4); Hematocrit 37.9 % (36-46); Hemoglobin 12.9 g/dL (12.0-16.0); Lymphocytes Absolute Auto 1100 /uL (1100-4500); Lymphocytes Percent Auto 20.3 % (25-40); Mean Corpuscular Hemoglobin 32.2 PG (26-34); Mean Corpuscular Volume 94.8 fL (80-100); Monocytes Absolute Auto 500 /uL (0-900); Monocytes Percent Auto 8.1 % (3-14); Neutrophils Absolute Auto 3800 /uL (1500-7000); Neutrophils Percent Auto 67.9 % (50-75); Platelet Count 271 X10^3/uL (150-400); Red Cell Distribution Width 14.5 % (11.6-14.8); White Blood Cell Count 5.6 X10^3/uL (4.5-11.0)
[2021-05-21 10:51] LABS: INR 1.1 (0.9-1.3); Prothrombin Time 11.9 SECONDS (10.1-12.7)
[2021-05-21 10:54] LABS: PTT Partial Thromboplastin Tim 36 SECONDS (26.4-36.2)
[2021-05-21 11:03] LABS: BUN Creatinine Ratio 20.9 (6-22); Blood Urea Nitrogen 14 mg/dL (7-17); Calcium 9.4 mg/dL (8.4-10.2); Carbon Dioxide 30 mmol/L (22-32); Chloride 105 mmol/L (98-107); Estimated Glomerular Filt Rate > 60.0 mL/min (>60); Glucose 80 mg/dL (80-110); HEMOLYSIS < 15 (0-50); Potassium 4.1 mmol/L (3.4-5.1); Sodium 140 mmol/L (137-145)
== END 2021-05-21 13:32 | disposition home or self-care (01) ==
PROVIDERS: Emergency Provider Emergency Medicine; PCP Internal Medicine
DX: S80.12XA Contusion of left lower leg, initial encounter (principal); R60.0 Localized edema; W19.XXXA Unspecified fall, initial encounter
CPT/HCPCS: 36415; 73502; 73562; 73590; 80048; 81003; 85025; 85610; 85730; 93971; 99284

== ENCOUNTER → 2021-06-14 08:01 | Outpatient (CLI) | payer MEDICARE, OTHER, SELFPAY ==
[2021-06-14 10:27] LABS: Hemoglobin A1C% w Est Avg Glu 5.5 % (4.0-6.0)
[2021-06-14 10:42] LABS: Cholesterol 255 mg/dL (140-199); HDL Cholesterol 77 mg/dL (40-60); LDL Cholesterol Calculated 160 mg/dL (<100); Triglycerides 92 mg/dL (35-150)
== END ==
PROVIDERS: PCP Internal Medicine; Referring Provider Internal Medicine; Visit Provider Internal Medicine
DX: R73.03 Prediabetes (principal); E78.5 Hyperlipidemia, unspecified
CPT/HCPCS: 36415; 80061; 83036

== ENCOUNTER 2021-09-21 13:08 | Emergency (ER) | payer MEDICARE, OTHER, SELFPAY ==
[2021-09-21] VITALS (10 sets, daily range): BP systolic 139–186; BP diastolic 65–87; PULSE 75–89; RESP 21–33; TEMP 36.9; O2SAT 96–99; BMI 29.5
--- NOTE | 2021-09-21 13:16 | DI.RAD.S_ITS ---
PROCEDURE: XR CHEST 1V INDICATIONS: chest pain TECHNIQUE: One view of the chest was acquired. COMPARISON: [facility], CR, XR CHEST 1V, 12/23/2019, 8:53. FINDINGS: Surgical changes and devices: None. Lungs and pleura: Lungs are clear. No pleural effusions or pneumothorax. Mediastinum: Mediastinal contours appear normal. Heart size is normal. Bones and chest wall: No suspicious bony lesions. Overlying soft tissues appear unremarkable. IMPRESSION: No evidence acute pulmonary process. Dictated by: Perry Hudson M.D. on 09/21/2021 at 14:14 Approved by: Perry Hudson M.D. on 09/21/2021 at 14:14
--- NOTE | 2021-09-21 14:01 | PC.NURSE ---
Patient reports smart watch notified her of heart rate in 120's. Occasionally during the episodes feels pain between shoulder blades but no chest pain, nausea, or SOB. Denies cardiac hx but does take amlodipine daily.
--- NOTE | 2021-09-21 14:22 | ED.ARRPALP ---
HPI - Arrhythmia/Palpitations General Chief Complaint: Arrhythmia/Palpitations Stated Complaint: High HR Time Seen by Provider: 09/21/21 14:17 Source: patient Mode of arrival: Ambulatory Limitations: no limitations History of Present Illness HPI narrative: The patient had a pacemaker placed earlier this year. She has no the care of Dr. Nj, cardiology. She has an I phoned wrist watch, which monitor heart rate. Her heart rate has increased for occasionally to 120. She does not feel palpitations when this occurs. She has been experiencing slight substernal tenderness. She has no discomfort at this time. She denies palpitations, chest discomfort, or dyspnea. She has no orthopnea, no edema. She has no fever chills, she denies recent illness. Related Data Home Medications Medication Instructions Recorded Confirmed ASCORBIC ACID (#VITAMIN C) 500 - 1,000 mg PO QDAY #0 09/23/11 CHOLECALCIFEROL (VITAMIN D3) 5,000 units PO BID #0 06/21/13 [VITAMIN B 12] 1,000 mg PO QDAY #0 06/21/13 [lipo-cardia] #0 01/10/17 [turmeric] #0 01/10/17 [D-Trevor] #0 01/02/18 diltiazem HCl 30 mg tablet 30 mg PO DAILY 04/07/19 04/07/19 ipratropium bromide 42 mcg (0.06 1 spray INTRANASAL DIRECTED 04/07/19 04/07/19 %) nasal spray levothyroxine 75 mcg tablet 75 mcg PO DAILY 04/07/19 04/07/19 Previous Rx's Medication Instructions Recorded codeine 10 mg-guaifenesin 100 mg/5 5 ml PO QHS #60 ml 11/11/17 mL oral liquid cyclobenzaprine 10 mg tablet 10 mg PO TID PRN #15 tab 12/23/19 naproxen 500 mg tablet (Naprosyn) 500 mg PO BID PRN #20 tab 12/23/19 tramadol 50 mg tablet 50 mg PO Q8H PRN #10 tab 09/08/20 clindamycin HCl 300 mg capsule 300 mg PO Q6H #40 cap 05/21/21 hydrocodone 5 mg-acetaminophen 325 1 tab PO Q6H PRN #20 tab 05/21/21 mg tablet Allergies Allergy/AdvReac Type Severity Reaction Status Date / Time adhesive Allergy Mild RASH, Verified 12/23/19 08:31 SEVERE BLISTERS azithromycin Allergy Mild RASH Verified 12/23/19 08:31 bacitracin Allergy Mild RASH Verified 12/23/19 08:31 [From Neosporin ([id number])] cefpodoxime Allergy Mild RASH Verified 12/23/19 08:31 neomycin Allergy Mild RASH Verified 12/23/19 08:31 [From Neosporin ([id number])] polymyxin B Allergy Mild RASH Verified 12/23/19 08:31 [From Neosporin ([id number])] Sulfa (Sulfonamide Allergy Mild RASH Verified 12/23/19 08:31 Antibiotics) tetracycline Allergy Mild RASH, Verified 12/23/19 08:31 SYNCOPE benzonatate Allergy Unknown Verified 12/23/19 08:31 losartan [LOSARTAN] Allergy Unknown Verified 12/23/19 08:31 aspirin AdvReac Intermediate RECTAL Verified 09/28/19 06:45 BLEED levofloxacin AdvReac Intermediate HEEL PAIN Verified 09/28/19 06:45 AND TENDONTITIS carvedilol AdvReac Mild MUSCLE Verified 09/28/19 06:45 WEAKNESS ciprofloxacin AdvReac Mild HEEL PAIN Verified 09/28/19 06:45 metoprolol AdvReac Mild WEAK, Verified 09/28/19 06:45 NAUSEA Review of Systems Constitutional Constitutional: Denies anorexia, Denies body ache(s), Denies chills, Denies fatigue, Denies fever(s) and Denies headache(s) Eyes Eyes: Denies change in vision ENT Ears, Nose, Mouth, and Throat: Denies vertigo, Denies dizziness and Denies headache(s) Comments: No ENT complaints. Cardiovascular Cardiovascular: Reports as per HPI Respiratory Respiratory: Denies chest congestion and Denies cough Gastrointestinal Gastrointestinal: Denies abdominal pain and Denies nausea Genitourinary Genitourinary: Denies dysuria Musculoskeletal Musculoskeletal: Denies arthralgias and Denies back pain Comments: No lower extremity edema. Integumentary/Breasts Skin/Breast: Denies lesions and Denies rash Neurologic Neurologic: Denies confusion, Denies vertigo, Denies dizziness and Denies headache(s) Psychiatric Psychiatric: Denies confusion and Denies depression Endocrine Endocrine: Denies fatigue Hematologic/Lymphatic On Anticoagulants: No Patient History Medical History (Updated 09/21/21 @ 16:10 by Jose Clay MD) Diverticulosis GERD (gastroesophageal reflux disease) Hyperlipidemia Hypertension Social History Smoking Status: Never smoker Smoking Status: Never smoker alcohol intake frequency: holidays/special occasions only Substance Use Type: does not use Exam Initial Vital Signs Initial Vital Signs: Vital Signs Temperature 98.4 F 09/21/21 13:12 Pulse Rate 80 09/21/21 13:12 Respiratory Rate 22 09/21/21 13:12 Blood Pressure 186/84 H 09/21/21 13:12 Pulse Oximetry 96 09/21/21 13:12 Const General: cooperative, comfortable, well developed and well groomed HENMT Head: normal to inspection, normocephalic and atraumatic Face and sinus: normal facial exam Mouth: oral mucosae normal Eyes Conjunctivae: conjunctivae normal Sclera: sclerae normal Pupils: PERRL EOM: EOM intact bilaterally Neck Neck: No JVD Resp Auscultation: clear to auscultation bilaterally Cardio Rate: regular rate Rhythm: regular rhythm Heart Sounds: S1 normal, S2 normal and other (Occasional audible with PVC.) GI Inspection: normal to inspection Palpation: soft, No mass and No tender Auscultation: normal bowel sounds Back/Spine/Pelvis Back: normal to inspection Skin General: no rashes or lesions noted Neuro General: patient alert, patient awake, patient oriented x3 and no focal motor deficits Extrem General: normal to inspection, full ROM, no pedal edema and no calf tenderness Psych Mental Status: mental status grossly normal Course Course Course Narrative: The case was discussed with Dr. Hayden, on-call and covering the patient's productivity engineer, Dr. Nj. Given her history, but without having definitive records, she is probably having AFib. Current record indicates she is on low-dose of Cardizem. I discussed this with the patient, she is on Amiodarone. Further rhythm control was not addressed. The recommendation is she follows up with Dr. Nj for definitive interpretation of her pacer query, and discuss anticoagulation if she is truly having runs of AFib. Orders Ordered: ED Orders 09/21/21 13:16 XR chest 1V Stat EKG-12 Lead Stat 09/21/21 14:14 Complete Blood Count AUTO DIFF Stat Comprehensive Metabolic Panel Stat Lipase Stat Magnesium Stat Troponin & CK Cardiac Panel Stat Vital Signs Vital signs: Vital Signs - 8 hr 09/21/21 13:12 09/21/21 13:38 09/21/21 14:00 Temperature 98.4 F Pulse Rate 80 89 83 Respiratory Rate 22 33 H Blood Pressure 186/84 H 176/78 H Pulse Oximetry 96 98 97 09/21/21 14:01 Temperature Pulse Rate 81 Respiratory Rate 32 H Blood Pressure 139/87 Pulse Oximetry 98 MDM - Arrhythmia/Palpitations Lab Data Result diagrams: 09/21/21 14:14 09/21/21 14:14 Labs: Lab Results 09/21/21 09/21/21 Range/Units 14:14 14:14 WBC 5.8 (4.5-11.0) X10^3/uL RBC 4.22 (4.0-5.2) X10^6/uL Hgb 13.4 (12.0-16.0) g/dL Hct 39.4 (36-46) % MCV 93.4 (80-100) fL MCH 31.7 (26-34) PG MCHC 33.9 (30-36) % RDW 14.6 (11.6-14.8) % Plt Count 240 (150-400) X10^3/uL Neut % (Auto) 66.9 (50-75) % Lymph % (Auto) 21.7 L (25-40) % [place] % (Auto) 9.0 (3-14) % Eos % (Auto) 1.7 L (2-4) % Baso % (Auto) 0.7 (0-2) % Neut # (Auto) 3900 (6247-5269) /uL Lymph # (Auto) 1300 (6948-0618) /uL [place] # (Auto) 500 (0-900) /uL Eos # (Auto) 100 (0-450) /uL Baso # (Auto) 0 (0-100) /uL Sodium 139 (137-145) mmol/L Potassium 3.3 L (3.4-5.1) mmol/L Chloride 103 (98-107) mmol/L Carbon Dioxide 28 (22-32) mmol/L BUN 16 (7-17) mg/dL Creatinine 0.87 (0.52-1.04) mg/dL Estimated GFR > 60.0 (>60) mL/min BUN/Creatinine Ratio 18.4 (6-22) Glucose 109 (80-110) mg/dL Calcium 8.9 (8.4-10.2) mg/dL Magnesium 2.2 (1.6-2.3) mg/dL Total Bilirubin 0.9 (0.2-1.3) mg/dL AST 29 (14-36) IU/L ALT 20 (<35) IU/L Alkaline Phosphatase 59 (38-126) U/L Total Creatine Kinase 78 (30-135) U/L CK-MB (CK-2) TNP CK-MB (CK-2) Rel Index TNP Troponin I < 0.012 (0.01-0.034) ng/mL Total Protein 7.1 (6.3-8.2) g/dL Albumin 4.3 (3.5-5.0) g/dL Globulin 2.8 (1.7-4.1) g/dL Albumin/Globulin Ratio 1.5 (1.0-2.8) Lipase 34 (23-300) U/L Imaging Data Chest x-ray: Radiologist's Impresson: No acute cardiopulmonary process ECG Data Attestation: I personally reviewed and interpreted this ECG as follows: (Normal sinus rhythm rate 80 beats per minute. RBBB. LAFB. LVH. Nonspecific ST T wave changes.) Discharge Plan Departure Patient Disposition: Home Clinical Impression: Tachycardia Instructions: DI for Tachycardia Activity Restrictions/Additional Instructions: We have checked you for heart attack, there is no evidence of heart attack. I discussed her case with the on-call productivity engineer, Dr. Tanvir Hayden. The concern is you have atrial fib. You are on appropriate medications. Dr. Hayden suggested you talk to Dr. Nj about the over the phone query of the pacemaker, and about possibly on anticoagulants. Return to the ER as necessary. Prescriptions: No Action ASCORBIC ACID (#VITAMIN C) 500 - 1,000 mg PO QDAY Qty: 0 RF: 0 CHOLECALCIFEROL (VITAMIN D3) 5,000 units PO BID Qty: 0 RF: 0 [VITAMIN B 12] 1,000 mg PO QDAY Qty: 0 RF: 0 [lipo-cardia] Qty: 0 RF: 0 [turmeric] Qty: 0 RF: 0 codeine-guaifenesin 100 MG/10 MG liquid 5 ml PO QHS Qty: 60 RF: 0 [D-Trevor] Qty: 0 RF: 0 levothyroxine 75 mcg tablet 75 mcg PO DAILY RF: 0 diltiazem HCl 30 mg tablet 30 mg PO DAILY RF: 0 ipratropium bromide 42 mcg (0.06 %) spray,non-aerosol 1 spray Intranasal DIRECTED RF: 0 tramadol 50 mg tablet 50 mg PO Q8H PRN (Reason: pain) Qty: 10 RF: 0 cyclobenzaprine 10 mg tablet 10 mg PO TID PRN (Reason: muscle spasm) Qty: 15 RF: 0 naproxen [Naprosyn] 500 mg tablet 500 mg PO BID PRN (Reason: pain) Qty: 20 RF: 0 hydrocodone-acetaminophen 5-325 mg tablet 1 tab PO Q6H PRN (Reason: pain) Qty: 20 RF: 0 clindamycin HCl 300 mg capsule 300 mg PO Q6H Qty: 40 RF: 0 Referrals: Jose Carty MD [Primary Care Provider] -
[2021-09-21 14:24] LABS: Add Manual Diff / Slide Review NO; Basophils Absolute Auto 0 /uL (0-100); Basophils Percent Auto 0.7 % (0-2); Eosinophils Absolute Auto 100 /uL (0-450); Eosinophils Percent Auto 1.7 % (2-4); Hematocrit 39.4 % (36-46); Hemoglobin 13.4 g/dL (12.0-16.0); Lymphocytes Absolute Auto 1300 /uL (1100-4500); Lymphocytes Percent Auto 21.7 % (25-40); Mean Corpuscular HGB Conc 33.9 % (30-36); Mean Corpuscular Hemoglobin 31.7 PG (26-34); Mean Corpuscular Volume 93.4 fL (80-100); Monocytes Absolute Auto 500 /uL (0-900); Neutrophils Absolute Auto 3900 /uL (1500-7000); Neutrophils Percent Auto 66.9 % (50-75); Platelet Count 240 X10^3/uL (150-400); Red Blood Cell Count 4.22 X10^6/uL (4.0-5.2); Red Cell Distribution Width 14.6 % (11.6-14.8); White Blood Cell Count 5.8 X10^3/uL (4.5-11.0)
[2021-09-21 15:02] LABS: Alanine Aminotransferase 20 IU/L (<35); Albumin 4.3 g/dL (3.5-5.0); Albumin Globulin Ratio 1.5 (1.0-2.8); Alkaline Phosphatase 59 U/L (38-126); Aspartate Aminotransferase 29 IU/L (14-36); BUN Creatinine Ratio 18.4 (6-22); Bilirubin Total 0.9 mg/dL (0.2-1.3); Blood Urea Nitrogen 16 mg/dL (7-17); Calcium 8.9 mg/dL (8.4-10.2); Carbon Dioxide 28 mmol/L (22-32); Chloride 103 mmol/L (98-107); Creatine Kinase 78 U/L (30-135); Estimated Glomerular Filt Rate > 60.0 mL/min (>60); Globulin 2.8 g/dL (1.7-4.1); Glucose 109 mg/dL (80-110); HEMOLYSIS < 15 (0-50); Lipase 34 U/L (23-300); Magnesium 2.2 mg/dL (1.6-2.3); Potassium 3.3 mmol/L (3.4-5.1); Sodium 139 mmol/L (137-145); Total Protein 7.1 g/dL (6.3-8.2)
[2021-09-21 15:12] LABS: Troponin I < 0.012 ng/mL (0.01-0.034)
--- NOTE | 2021-09-21 15:13 | PC.NURSE ---
Provider Danna asked for a cardiac consult with patients provider through [facility]. I called the [facility] transfer center at 15:08 and placed a cardiac consult request for Alexx at [facility] transfer [facility].
== END 2021-09-21 16:28 | disposition home or self-care (01) ==
PROVIDERS: Emergency Provider Emergency Medicine; PCP Internal Medicine
DX: R00.0 Tachycardia, unspecified (principal); R07.9 Chest pain, unspecified; Z95.0 Presence of cardiac pacemaker
CPT/HCPCS: 36415; 71045; 80053; 82550; 83690; 83735; 84484; 85025; 93005; 93010; 99281; 99284

== ENCOUNTER → 2021-09-28 11:25 | Outpatient (CLI) | payer MEDICARE, OTHER, SELFPAY ==
--- NOTE | 2021-09-28 | DI.MG.S_ITS ---
BILATERAL DIGITAL SCREENING MAMMOGRAM 3D/2D WITH CAD: 09/28/2021 CLINICAL: Routine screening. Comparison is made to exams dated: 10/31/2018 mammogram and 07/24/2016 mammogram - [facility]. The tissue of both breasts is heterogeneously dense. This may lower the sensitivity of mammography. Current study was also evaluated with a Computer Aided Detection (CAD) system. There is a new focal asymmetry in the right breast at 4 o'clock posterior depth. No other significant masses, calcifications, or other findings are seen in either breast. IMPRESSION: INCOMPLETE: NEEDS ADDITIONAL IMAGING EVALUATION The new focal asymmetry in the right breast is indeterminate. Additional views with possible ultrasound are recommended. This exam was interpreted at Station ID: [id number]. NOTE: For mammograms, a report in lay terms will be sent to the patient. Approximately 15% of breast malignancies will not be visualized mammographically. In the management of a palpable breast mass, a negative mammogram must not discourage biopsy of a clinically suspicious lesion. Electronically Signed By: [place] etienne/toño:09/28/2021 12:38:29 copy to: JOSIAS WEBB letter sent: Additional Imaging Needed ACR BI-RADS Category 0: Incomplete 3340F
== END ==
PROVIDERS: PCP Internal Medicine; Referring Provider Internal Medicine; Visit Provider Internal Medicine
DX: Z12.31 Encounter for screening mammogram for malignant neoplasm of breast (principal)
CPT/HCPCS: 77063; 77067

== ENCOUNTER → 2021-10-26 13:24 | Outpatient (CLI) | payer MEDICARE, OTHER, SELFPAY ==
--- NOTE | 2021-10-26 | DI.US.S_ITS ---
ULTRASOUND OF RIGHT BREAST AND AXILLA: 10/26/2021 CLINICAL: Patient returns today to evaluate a focal asymmetry in the right breast. Comparison is made to exams dated: 10/26/2021 mammogram, 09/28/2021 mammogram, 10/31/2018 mammogram, 07/24/2016 mammogram, 07/23/2011 mammogram, and 07/18/2010 [facility]. Color flow and real-time ultrasound of the right breast axilla were performed. Call scale images of the real-time examination were reviewed. There is a 0.7 cm x 0.2 cm x 0.3 cm irregular complicated cyst with septated internal mejia in the right breast at 3 o'clock middle depth 4 cm from the nipple. This irregular complicated cyst is hypoechoic with internal echoes. Color flow imaging demonstrates that there is no vascularity present. This finding may or maynot correlate with suspicious mammographic finding. No significant abnormalities were seen sonographically in the right axilla. IMPRESSION: SUSPICIOUS OF MALIGNANCY The 0.7 cm x 0.2 cm x 0.3 cm irregular complicated cyst versus cluster of cysts in the right breast is probably benign; however, it does not definitively correlate with abnormal mammographic findings which are suspicious of malignancy. A stereotactic guided biopsy is recommended. Findings and recommendations were discussed with the patient by Dr. Malone during today's examination. This exam was interpreted at Station ID: [id number]. Electronically Signed By: Justo Vail M.D. aty/:10/29/2021 09:43:18 copy to: JOSIAS WEBB letter sent: Biopsy Required Ultrasound BI-RADS: 4 Suspicious for malignancy
--- NOTE | 2021-10-26 | DI.MG.S_ITS ---
UNILATERAL RIGHT DIGITAL DIAGNOSTIC MAMMOGRAM 3D/2D WITH ADDITIONAL VIEWS: 10/26/2021 CLINICAL: Additional evaluation requested from prior study. Comparison is made to exams dated: 09/28/2021 mammogram, 10/31/2018 mammogram, and 07/24/2016 mammogram - [facility]. The tissue of right breast is heterogeneously dense. This may lower the sensitivity of mammography. There is a 0.7 cm irregular equal density focal asymmetry in the right breast at 4 o'clock posterior depth. This is seen in additional views. No other significant masses or calcifications are seen in the breast. IMPRESSION: INCOMPLETE: NEEDS ADDITIONAL IMAGING EVALUATION The 0.7 cm irregular equal density focal asymmetry in the right breast is indeterminate. An ultrasound is recommended for further evaluation and is scheduled to immediately follow this examination. This exam was interpreted at Station ID: [id number]. NOTE: For mammograms, a report in lay terms will be sent to the patient. Approximately 15% of breast malignancies will not be visualized mammographically. In the management of a palpable breast mass, a negative mammogram must not discourage biopsy of a clinically suspicious lesion. Electronically Signed By: Justo Vail M.D. aty/:10/26/2021 14:02:25 copy to: JOSIAS CAVAZOS BI-RADS Category 0: Incomplete 3340F
== END ==
PROVIDERS: PCP Internal Medicine; Referring Provider Internal Medicine; Visit Provider Internal Medicine
DX: R92.8 Other abnormal and inconclusive findings on diagnostic imaging of breast (principal); N60.01 Solitary cyst of right breast
CPT/HCPCS: 76642; 77065; G0279

== ENCOUNTER → 2022-05-20 10:06 | Outpatient (CLI) | payer MEDICARE, OTHER, SELFPAY | PROVIDERS: Family Provider Internal Medicine; PCP Internal Medicine; Referring Provider Internal Medicine; Visit Provider Internal Medicine ==

== ENCOUNTER → 2022-07-08 10:27 | Outpatient (CLI) | payer MEDICARE, OTHER, SELFPAY ==
--- NOTE | 2022-07-08 | DI.US.S_ITS ---
PROCEDURE: US PERIPH VENOUS LOW EXTREM BI INDICATIONS: RIGHT LEG PAIN TECHNIQUE: Real-time imaging, as well as color and pulse Doppler interrogation, were performed of the deep veins of both legs from the inguinal ligament to the popliteal fossa. COMPARISON: None. FINDINGS: Right: The common femoral, femoral and popliteal veins are normally compressible, and free of intraluminal thrombus. Color and pulse Doppler demonstrate normal phasic intravascular flow. There is normal augmentation response to distal compression maneuver. Left: The common femoral, femoral and popliteal veins are normally compressible, and free of intraluminal thrombus. Color and pulse Doppler demonstrate normal phasic intravascular flow. There is normal augmentation response to distal compression maneuver. Distal soft tissue edema can be seen on both sides. IMPRESSION: Negative for deep venous thrombosis. Dictated by: Jed Newman M.D. on 07/08/2022 at 11:27 Approved by: Jed Newman M.D. on 07/08/2022 at 11:27
== END ==
PROVIDERS: Family Provider Internal Medicine; PCP Internal Medicine; Referring Provider Nurse Practitioner; Visit Provider Nurse Practitioner
DX: M79.604 Pain in right leg (principal); R60.0 Localized edema
CPT/HCPCS: 93970

== ENCOUNTER → 2022-10-31 12:01 | Outpatient (CLI) | payer MEDICARE, OTHER, SELFPAY ==
--- NOTE | 2022-10-31 | DI.RAD.S_ITS ---
PROCEDURE: XR THORACIC SPINE 2V INDICATIONS: thoracic back pain TECHNIQUE: 3 views of the thoracic spine were acquired. COMPARISON: CR, CHEST 2 VIEW, 12/06/2016, 12:28. CR, XR CHEST 1V, 09/21/2021, 14:02. FINDINGS: Bones: No fractures or dislocations. No suspicious bony lesions. 12 pairs of ribs are noted, and appear intact where visualized. Moderate multilevel disc height loss with endplate sclerosis and spurring. Diffuse osteopenia. Soft tissues: No paravertebral stripe thickening. IMPRESSION: Moderate multilevel disc degeneration and diffuse osteopenia. Dictated by: Jason Jensen [facility] Interpreted: Leo Malone MD on 10/31/2022 at 14:09 Transcribed by: NICOLAS on 10/31/2022 at 14:11 Approved by: Leo Malone M.D. on 10/31/2022 at 14:40
[2022-10-31 13:12] LABS: Add Manual Diff / Slide Review NO; Basophils Absolute Auto 100 /uL (0-100); Basophils Percent Auto 0.9 % (0-2); Eosinophils Absolute Auto 100 /uL (0-450); Eosinophils Percent Auto 1.6 % (2-4); Hematocrit 42.6 % (36-46); Hemoglobin 14.1 g/dL (12.0-16.0); Lymphocytes Absolute Auto 1900 /uL (1100-4500); Lymphocytes Percent Auto 30.2 % (25-40); Mean Corpuscular HGB Conc 33.1 % (30-36); Mean Corpuscular Volume 93.7 fL (80-100); Monocytes Absolute Auto 400 /uL (0-900); Monocytes Percent Auto 7.1 % (3-14); Neutrophils Absolute Auto 3800 /uL (1500-7000); Neutrophils Percent Auto 60.2 % (50-75); Platelet Count 266 X10^3/uL (150-400); Red Blood Cell Count 4.54 X10^6/uL (4.0-5.2); Red Cell Distribution Width 14.5 % (11.6-14.8); White Blood Cell Count 6.3 X10^3/uL (4.5-11.0)
[2022-10-31 13:51] LABS: Alanine Aminotransferase 27 IU/L (<35); Albumin 4.7 g/dL (3.5-5.0); Albumin Globulin Ratio 1.3 (1.0-2.8); Alkaline Phosphatase 76 U/L (38-126); Aspartate Aminotransferase 31 IU/L (14-36); BUN Creatinine Ratio 29.2 (6-22); Bilirubin Total 1.1 mg/dL (0.2-1.3); Blood Urea Nitrogen 21 mg/dL (7-17); Calcium 9.5 mg/dL (8.4-10.2); Carbon Dioxide 27 mmol/L (22-32); Chloride 103 mmol/L (98-107); Estimated Glomerular Filt Rate > 60 mL/min (>60); Globulin 3.5 g/dL (1.7-4.1); Glucose 110 mg/dL (80-110); HEMOLYSIS < 15 (0-50); Potassium 3.5 mmol/L (3.4-5.1); Sodium 141 mmol/L (137-145); Total Protein 8.2 g/dL (6.3-8.2)
== END ==
PROVIDERS: Family Provider Internal Medicine; PCP Internal Medicine; Referring Provider Internal Medicine; Visit Provider Internal Medicine
DX: I10 Essential (primary) hypertension (principal); M54.6 Pain in thoracic spine; G89.29 Other chronic pain
CPT/HCPCS: 36415; 72070; 80053; 85025

== ENCOUNTER → 2023-01-29 09:12 | Outpatient (CLI) | payer MEDICARE, OTHER, SELFPAY ==
--- NOTE | 2023-01-29 | DI.RAD.S_ITS ---
PROCEDURE: FL BARIUM SWALLOW W SPEECH INDICATIONS: Dysphagia COMPARISON: None. TECHNIQUE: Examination was conducted in conjunction with speech pathology per standard protocol. In the lateral projection, filming was performed of the patient swallowing. AP projection filming may also be performed with patient swallowing. COMPARISON: FINDINGS: Function: The oral preparatory phase appears normal, with proper containment. The subsequent oral propulsive phase, pharyngeal phase, and esophageal phase of swallowing also appear normal with all proffered substances. No laryngotracheal penetration or aspiration. No pathologic vallecular pooling. Morphology: No cricopharyngeal bar is identified. No cervical esophageal webs. No Zenker's diverticulum. No strictures. IMPRESSION: No aspiration. Please see separately dictated speech pathologist's report. Dictated by: Leo Malone M.D. on 01/29/2023 at 10:43 Approved by: Leo Malone M.D. on 01/29/2023 at 10:43
--- NOTE | 2023-01-29 14:31 | ST.SWALLOW ---
Visit Care Team Role Provider Type Barb Barnes PA-C Primary Care Provider Advanced Lay Out Former Specialty: Medical Address: [address] [place] [address] Email: Jose Carty MD Family Provider Physician Specialty: Internal Medicine Address: [address] [place] [address] Email: Maikel Escobar MD Attending Provider Physician Referring Provider Specialty: Ear, Nose, Throat Address: [address] [place] [address] Email: [email or web address] Modified Barium Swallow Study ELECTROLYSIST Modified Barium Swallow Study Start: 01/29/23 13:57 Freq: Status: Active Protocol: Document 01/29/23 14:08 LNK (Rec: 01/29/23 14:31 LNK [id number]) Modified Barium Swallow Study Total Time Visit Start Time 09:30 Visit Stop Time 10:00 Total Visit Minutes 30 Referral Referring Physician BILL Shannon Reason for Referral dysphagia Setting Setting Outpatient Care Patient Information Identification Type Name,Date of Patient History Pt was seen for a Modified barium Swallow Study at the referral of her BILL Jung. According to the pt she frequently chokes on her saliva during the day. She noted that this choking occurs randomly. She could be reading a book, inhale and choke with saliva going down the wrong way. She denied this occurring during meals. She denied choking on solids and/or liquids. She did state that one pill she takes is difficult to swallow alone but improves with a carrier ( pudding, applesauce, etc.) Subjective Observations pt was seated in the fluoroscopy chair with instructions and procedures described for the pt. She indicated she understood and agreed to proceed. Patient Positioning Position View Lat-A/P Imaging Lateral View Textures Administered Trials Presented Thin Liquid via Spoon,Thin Liquid via Cup,Pudding Thick Liquid via Spoon,Regular Textures Oral Phase Source: MBSIMP (TM) (C) Bolus Specific Scoring Grid Lip Closure No Impairment (WNL) Tongue Control During Bolus Hold No Impairment (WNL) Bolus Prep/Mastication No Impairment (WNL) Bolus Transport/Lingual Motion No Impairment (WNL) A/P Lingual Propulsion Delay No Oral Residue Minimal Impairment Residue Clearing WFL Nasal Regurgitation No Additional Oral Phase Observations OME and DKS were observed to be WNL. Oral phase of swallow indicated good tongue control , A/P transition, mastication and swallow initiation. No oral residue observed following each trial. Pharyngeal Phase Source: MBSIMP (TM) (C) Bolus Specific Scoring Grid Delayed Initiation of Pharyngeal Swallow Yes: Mild premature spillage to the valeculla Soft Palate Elevation No Impairment (WNL) Tongue Base Strength/Range of Motion Mild Impairment Residue Along the Tongue Base Yes: Trace to minimal; cleared with subsequent swallows Clearance of Residue Along Tongue Base WFL Laryngeal Elevation Mild Impairment Anterior Hyoid Movement Minimal Impairment Epiglottic Range of Motion No Impairment (WNL) Vallecular Residue Yes: Trace to minimal; cleared with subsequent swallows Clearance of Vallecular Residue WFL Laryngeal Vestibular Closure No Impairment (WNL) Pharyngeal Stripping Wave Mild Impairment Posterior Pharyngeal Wall Residue Yes: Trace to minimal; cleared with subsequent swallows Clearance of Posterior Pharyngeal Wall WFL Residue Upper Esophageal Sphincter Opening WFL Residue in the Pyriform Sinuses No Esophageal Clearance Upright Position Minimal Impairment Pharyngoesophageal Backflow Observed No Additional Pharyngeal Phase Observations Mild tongue base weakness, negatively impacting laryngeal elevation. Hyoid movement, epiglottic inversion and laryngeal vestibule seal were all observed to be WNL. Posterior pharyngeal wall contraction was mildly decreased, resulting in pooling along the posterior pharyngeal wall, in the valeculla and at the tongue base. No penetration nor aspiration were observed across all trials. pharyngeal phase appeared to be WFL for pt's age. A/P View Textures Administered Trials Presented Thin Liquid via Cup,Barium Tablet A/P View Observations Esophageal Function Slowed Clearing,Poor Motility Esophageal Clearance Upright Position Minimal Impairment Additional Observations Esophageal clearance was mildly slow for the tablet. The esophagus emptied into the stomach without constriction or obstruction. Esophageal motility appeared to be WFL for pt's age. Clinical Impressions Dysphagia Type No obvious dysphagia Findings pt reports choking on her saliva frequently. Following the MBSS, the pt was counseled that her swallow was within functional limits for her age and that to increase frequency of swallowing. Using a reminder (sticky note with Swallow) located near her chair was recommended. Increased mindfulness of swallowing saliva was described with pt agreeing she understood. She was encouraged to contact MD if choking increases in frequency Patient Appropriate for Therapy No Recommendations Diet Comments no change in diet Treatment Plan Additional Therapy Recommendations Use reminders to swallow more frequently
== END ==
PROVIDERS: Family Provider Internal Medicine; PCP Physician Assistant; Referring Provider Otolaryngology; Visit Provider Otolaryngology
DX: R13.10 Dysphagia, unspecified (principal)
CPT/HCPCS: 74230; 92611

== ENCOUNTER → 2023-02-04 10:19 | Outpatient (CLI) | payer MEDICARE, OTHER, SELFPAY ==
--- NOTE | 2023-02-04 | DI.RAD.S_ITS ---
PROCEDURE: XR CERVICAL SPINE 2V OR 3V INDICATIONS: Cervicalgia TECHNIQUE: 3 view(s) of the cervical spine were acquired. COMPARISON: None. FINDINGS: Bones: No fractures or dislocations to the C7 level. The lateral masses of C1 appear intact on the odontoid view. No suspicious bony lesions. Moderate disc height loss at C5-6 and C6-7. Multilevel facet arthrosis, most prominent at C5 through C7. Soft tissues: No prevertebral soft tissue swelling. IMPRESSION: Moderate, multilevel degenerative disc disease and facet arthrosis. Dictated by: Kaiden Rosa M.D. on 02/04/2023 at 11:11 Approved by: Kaiden Rosa M.D. on 02/04/2023 at 11:12
== END ==
PROVIDERS: Family Provider Internal Medicine; PCP Physician Assistant; Referring Provider Physician Assistant; Visit Provider Physician Assistant
DX: M50.30 Other cervical disc degeneration, unspecified cervical region (principal); M46.92 Unspecified inflammatory spondylopathy, cervical region
CPT/HCPCS: 72040

== ENCOUNTER 2023-10-06 07:25 | Emergency (ER) | payer MEDICARE, OTHER, SELFPAY ==
[2023-10-06] VITALS (9 sets, daily range): BP systolic 139–156; BP diastolic 65–90; PULSE 61–76; RESP 16–22; TEMP 36.4–36.6; O2SAT 97–99
--- NOTE | 2023-10-06 07:30 | DI.RAD.S_ITS ---
PROCEDURE: XR CHEST 1V INDICATIONS: gen weakness TECHNIQUE: One view of the chest was acquired. COMPARISON: [facility], CR, XR CHEST 1V, 09/21/2021, 14:02. FINDINGS: Surgical changes and devices: None. Lungs and pleura: Lungs are clear. No pleural effusions or pneumothorax. Mediastinum: Mediastinal contours appear normal. Heart size is normal. Aortic arch is calcified, indicating atherosclerosis. Bones and chest wall: No suspicious bony lesions. Overlying soft tissues appear unremarkable. Surgical clips in the right upper quadrant. IMPRESSION: No acute cardiopulmonary process. Dictated by: Saad Mathew M.D. on 10/06/2023 at 7:58 Approved by: Saad Mathew M.D. on 10/06/2023 at 7:59
--- NOTE | 2023-10-06 07:32 | ED.GENADULT ---
HPI - General Adult General Chief complaint: Weakness Stated complaint: weakness Time Seen by Provider: 10/06/23 07:26 History of Present Illness HPI narrative: 87-year-old female with history of hypertension, remote history of breast cancer presents by EMS from home for generalized weakness. Patient states that she went to bed in her usual state of health, when she woke up this morning she felt a slight muscle ache in her right leg, which is normal for her. She got up and sat in the kitchen, however was then so weak that she states that she could not move at all. Her was able to wheel her to the bathroom, where she then called 911. Vital signs were reported to be unremarkable EN route. On arrival patient was able to move all extremities, she stated she already felt better. Related Data Home Medications Medication Instructions Recorded Confirmed ASCORBIC ACID (#VITAMIN C) 500 - 1,000 mg PO QDAY ##0 09/23/11 08/27/23 CHOLECALCIFEROL (VITAMIN D3) 5,000 units PO BID ##0 06/21/13 08/27/23 [VITAMIN B 12] 1,000 mg PO QDAY ##0 06/21/13 08/27/23 ipratropium bromide 42 mcg (0.06 1 spray intranasal DIRECTED 04/07/19 08/27/23 %) nasal spray Lactobacillus cap PO 07/09/22 08/27/23 acidophilus-Bifidobac.animalis 2.5 billion cell capsule (Daily Probiotic) anastrozole 1 mg tablet (Arimidex) 1 mg PO DAILY 07/09/22 08/27/23 estradiol 10 mcg vaginal tablet 10 mcg vaginal DAILY 07/09/22 08/27/23 magnesium 200 mg tablet 200 mg PO DAILY 07/09/22 08/27/23 multivitamin 1 tab PO DAILY 07/09/22 08/27/23 amlodipine 5 mg tablet 1.5 mg PO DAILY 12/12/22 08/27/23 levothyroxine 88 mcg tablet 88 mcg PO DAILY 08/27/23 08/27/23 (Synthroid) Previous Rx's Medication Instructions Recorded vibegron 75 mg tablet (Gemtesa) 75 mg PO DAILY #30 tabs 08/27/23 Allergies Allergy/AdvReac Type Severity Reaction Status Date / Time adhesive Allergy Mild RASH, Verified 12/12/22 09:43 SEVERE BLISTERS azithromycin Allergy Mild RASH Verified 12/12/22 09:43 bacitracin Allergy Mild RASH Verified 12/12/22 09:43 [From Neosporin ([id number])] cefpodoxime Allergy Mild RASH Verified 12/12/22 09:43 neomycin Allergy Mild RASH Verified 12/12/22 09:43 [From Neosporin ([id number])] polymyxin B Allergy Mild RASH Verified 12/12/22 09:43 [From Neosporin ([id number])] Sulfa (Sulfonamide Allergy Mild RASH Verified 12/12/22 09:43 Antibiotics) tetracycline Allergy Mild RASH, Verified 12/12/22 09:43 SYNCOPE benzonatate Allergy Unknown Verified 12/12/22 09:43 losartan [LOSARTAN] Allergy Unknown Verified 12/12/22 09:43 aspirin AdvReac Intermediate RECTAL Verified 12/12/22 09:43 BLEED levofloxacin AdvReac Intermediate HEEL PAIN Verified 12/12/22 09:43 AND TENDONTITIS carvedilol AdvReac Mild MUSCLE Verified 12/12/22 09:43 WEAKNESS ciprofloxacin AdvReac Mild HEEL PAIN Verified 12/12/22 09:43 metoprolol AdvReac Mild WEAK, Verified 12/12/22 09:43 NAUSEA oxybutinin AdvReac Intermediate Uncoded 12/12/22 09:43 Review of Systems Review of Systems Narrative: Reports: Generalized weakness All other systems negative except as noted above. Patient History Medical History (Updated 10/06/23 @ 09:45 by Sharyn Nj MD) Overactive bladder Secondhand smoke exposure History of urinary tract infection Perimenopausal atrophic vaginitis Urge incontinence Pacemaker Cancer of breast GERD (gastroesophageal reflux disease) Diverticulosis Hyperlipidemia Hypertension Surgical History H/O breast biopsy History of tubal ligation History of knee replacement Family History Father Diabetes mellitus Mother Eczema Social History marital status: number of children: 4 Smoking Status: Never smoker alcohol intake: current substance use type: does not use Type(s) of exercise: regular exercise frequency: 3-4 times per week Smoking Status: Never smoker alcohol intake frequency: holidays/special occasions only Substance Use Type: does not use Exam Initial Vital Signs Initial Vital Signs: Vital Signs Temperature 97.6 F 10/06/23 07:36 Pulse Rate 70 10/06/23 07:36 Respiratory Rate 16 10/06/23 07:36 Blood Pressure 142/90 H 10/06/23 07:36 Pulse Oximetry 99 10/06/23 07:36 Oxygen Delivery Method Room Air 10/06/23 07:36 Const: Awake, alert, no acute distress, nontoxic appearing Eyes: PERRL, EOMI, conjunctiva normal ENT: Atraumatic, dentition normal, mucous membranes moist Cardiac: regular rate, regular rhythm RESP: unlabored, clear bilaterally, no wheezing GI: Atraumatic, soft, nontender, nondistended, no rebound, no guarding MSK: Atraumatic, full range of motion, pulses equal Skin: Warm, Dry, intact, no rashes Neuro: AO x3, CN II-XII grossly intact, moves all extremities Psych: affect normal, mood normal, not suicidal, not homicidal Course Orders Ordered: ED Orders 10/06/23 07:27 CBC Auto Diff [Complete Blood Count AUTO DIFF] Stat CMP [Comprehensive Metabolic Panel] Stat MAG [Magnesium] Stat TSH [Thyroid Stimulating Hormone] Stat 10/06/23 07:30 Chest [XR chest 1V] Stat 10/06/23 07:45 Respiratory Panel (Film Array) Stat 10/06/23 09:33 UA Complete [Urinalysis and Microscopic] Stat Vital Signs Vital signs: Vital Signs - 8 hr 10/06/23 07:36 10/06/23 08:32 Temperature 97.6 F Pulse Rate 70 68 Respiratory Rate 16 21 Blood Pressure 142/90 H 139/65 Pulse Oximetry 99 98 Oxygen Delivery Method Room Air Room Air Medical Decision Making Differential Diagnosis Differential Diagnosis: UTI, hyponatremia, hypokalemia Lab Data 10/06/23 07:27 10/06/23 07:27 Labs: Lab Results 10/06/23 10/06/23 10/06/23 Range/Units 07: 07:45 09:33 WBC 5.5 (4.5-11.0) X10^3/uL RBC 4.46 (4.0-5.2) X10^6/uL Hgb 14.1 (12.0-16.0) g/dL Hct 41.4 (36-46) % MCV 92.7 (80-100) fL MCH 31.6 (26-34) PG MCHC 34.1 (30-36) % RDW 15.0 H (11.6-14.8) % Plt Count 245 (150-400) X10^3/uL Neut % (Auto) 46.9 L (50-75) % Lymph % (Auto) 41.0 H (25-40) % [place] % (Auto) 7.7 (3-14) % Eos % (Auto) 3.4 (2-4) % Baso % (Auto) 1.0 (0-2) % Neut # (Auto) 2600 (4414-4982) /uL Lymph # (Auto) 2200 (1633-6487) /uL [place] # (Auto) 400 (0-900) /uL Eos # (Auto) 200 (0-450) /uL Baso # (Auto) 100 (0-100) /uL Sodium 138 (137-145) mmol/L Potassium 3.4 (3.4-5.1) mmol/L Chloride 103 (98-107) mmol/L Carbon Dioxide 28 (22-32) mmol/L BUN 16 (7-17) mg/dL Creatinine 0.64 (0.52-1.04) mg/dL Estimated GFR > 60 (>60) mL/min BUN/Creatinine Ratio 25.0 H (6-22) Glucose 129 H (80-110) mg/dL Calcium 9.6 (8.4-10.2) mg/dL Magnesium 2.2 (1.6-2.3) mg/dL Total Bilirubin 1.3 (0.2-1.3) mg/dL AST 29 (14-36) IU/L ALT 22 (<35) IU/L Alkaline Phosphatase 78 (38-126) U/L Total Protein 8.1 (6.3-8.2) g/dL Albumin 4.4 (3.5-5.0) g/dL Globulin 3.7 (1.7-4.1) g/dL Albumin/Globulin Ratio 1.2 (1.0-2.8) TSH 5.58 H (0.47-4.68) uIU/mL Urine Color Yellow Urine Appearance Clear Urine pH 6.5 (4.5-8.0) Ur Specific [place] 1.010 (1.000-1.035) Urine Protein Negative (Negative) Urine Glucose (UA) Negative (Negative) g/dL Urine Ketones Trace H (NEGATIVE) Urine Occult Blood Negative (Negative) Urine Nitrate Negative (Negative) Urine Bilirubin Negative (NEGATIVE) Urine Urobilinogen 0.2 (0.2) E.U./dL Ur Leukocyte Esterase Negative (NEGATIVE) Urine RBC None seen (0-5/HPF) Urine WBC None seen (0-5/HPF) Ur Squamous Epith Cells 1-5 /hpf (0-5/HPF) Urine Bacteria None seen (None) Ur Culture Indicated? Cult not indicated Chlamy pneumoniae PCR Not detected (Not Detect) Adenovirus (PCR) Not detected (Not Detect) B.parapertussis DNA PCR Not detected (Not Detecte) Coronavirus OC43 (PCR) Not detected (Not Detect) Coronavirus HKU1 (PCR) Not detected (Not Detect) Coronavirus 229E (PCR) Not detected (Not Detect) SARS-CoV-2 (PCR) Not detected (Not Detecte) Coronavirus NL63 (PCR) Not detected (Not Detect) Human Metapneumovir PCR Not detected (Not Detect) Influenza Type A (PCR) Not detected (Not Detect) Influenza Type B (PCR) Not detected (Not Detect) M. pneumoniae (PCR) Not detected (Not Detect) Parainfluenza 1 (PCR) Not detected (Not Detect) Parainfluenza 2 (PCR) Not detected (Not Detect) Parainfluenza 3 (PCR) Not detected (Not Detect) Parainfluenza 4 (PCR) Not detected (Not Detect) RSV (PCR) Not detected (Not Detect) Entero/Rhino (PCR) Not detected (Not Detect) ECG Data Interpretation: Normal sinus rhythm, bifascicular block, nonspecific ST-T wave changes, no STEMI MDM Narrative Medical decision making narrative: Well-appearing patient with an episode of generalized weakness earlier this morning, now since resolved. Patient is awake, alert, oriented x3, GCS 15, NIH of 0, moves all extremities with 5/5 strength. Patient's [employer] pacemaker was interrogated, no abnormal events detected. is now at bedside, he confirms patient's recount of the story and denies any abnormal movements, any episodes of altered mental status, other events. Pending labs/XR imaging. Patient's laboratory work is notable for elevated TSH level, nonspecific, patient does states that she has a history of hypothyroidism and takes a daily levothyroxine. X-ray negative for acute findings. Urinalysis negative for infection. Electrolytes within normal limits. Patient continues to deny any recurrence of her weakness, is able to ambulate to the bedside commode to provide a urine sample without any difficulty. Uncertain etiology of patient's symptoms. Since this was a global event while retaining consciousness this is highly unlikely to be a stroke or seizure. Patient and family at bedside were informed of all lab and imaging results, I recommended the patient follow up with her primary care physician concerning her elevated TSH level, otherwise patient can continue her routine as normal. ED return precautions discussed at bedside. Patient expressed understanding of the plan and is in agreement at this time. All questions answered at the time of discharge. Discharge Plan Departure Patient Disposition: Home Clinical Impression: Episode of generalized weakness Instructions: DI for Muscle Weakness Activity Restrictions/Additional Instructions: Please follow up with your primary care physician. Return if your weakness returns or if you experience any other concerning symptoms. Prescriptions: No Action ASCORBIC ACID (#VITAMIN C) 500 - 1,000 mg PO QDAY Qty: 0 CHOLECALCIFEROL (VITAMIN D3) 5,000 units PO BID Qty: 0 [VITAMIN B 12] 1,000 mg PO QDAY Qty: 0 ipratropium bromide 42 mcg (0.06 %) spray,non-aerosol 1 spray Intranasal DIRECTED anastrozole [Arimidex] 1 mg tablet 1 mg PO DAILY estradiol 10 mcg tablet 10 mcg vaginal DAILY magnesium 200 mg tablet 200 mg PO DAILY multivitamin Tablet 1 tab PO DAILY Daily Probiotic 2.5 billion cell capsule PO amlodipine 5 mg tablet 1.5 mg PO DAILY levothyroxine [Synthroid] 88 mcg tablet 88 mcg PO DAILY Gemtesa 75 mg tablet 75 mg PO DAILY Qty: 30 12RF Referrals: Barb Barnes PA-C [Primary Care Provider] - Stand Alone Forms: Patient Portal/API
[2023-10-06 07:41] LABS: Add Manual Diff / Slide Review NO; Basophils Absolute Auto 100 /uL (0-100); Eosinophils Absolute Auto 200 /uL (0-450); Eosinophils Percent Auto 3.4 % (2-4); Hematocrit 41.4 % (36-46); Hemoglobin 14.1 g/dL (12.0-16.0); Lymphocytes Absolute Auto 2200 /uL (1100-4500); Mean Corpuscular HGB Conc 34.1 % (30-36); Mean Corpuscular Hemoglobin 31.6 PG (26-34); Mean Corpuscular Volume 92.7 fL (80-100); Monocytes Absolute Auto 400 /uL (0-900); Monocytes Percent Auto 7.7 % (3-14); Neutrophils Absolute Auto 2600 /uL (1500-7000); Neutrophils Percent Auto 46.9 % (50-75); Platelet Count 245 X10^3/uL (150-400); Red Blood Cell Count 4.46 X10^6/uL (4.0-5.2); White Blood Cell Count 5.5 X10^3/uL (4.5-11.0)
[2023-10-06 07:46] LABS: Alanine Aminotransferase 22 IU/L (<35); Albumin 4.4 g/dL (3.5-5.0); Albumin Globulin Ratio 1.2 (1.0-2.8); Alkaline Phosphatase 78 U/L (38-126); Aspartate Aminotransferase 29 IU/L (14-36); Bilirubin Total 1.3 mg/dL (0.2-1.3); Blood Urea Nitrogen 16 mg/dL (7-17); Calcium 9.6 mg/dL (8.4-10.2); Carbon Dioxide 28 mmol/L (22-32); Chloride 103 mmol/L (98-107); Estimated Glomerular Filt Rate > 60 mL/min (>60); Globulin 3.7 g/dL (1.7-4.1); Glucose 129 mg/dL (80-110); HEMOLYSIS < 15 (0-50); Magnesium 2.2 mg/dL (1.6-2.3); Potassium 3.4 mmol/L (3.4-5.1); Sodium 138 mmol/L (137-145); Total Protein 8.1 g/dL (6.3-8.2)
[2023-10-06 08:16] LABS: Thyroid Stimulating Hormone 5.58 uIU/mL (0.47-4.68)
[2023-10-06 08:43] LABS: Adenovirus Not Detected (Not Detect); B. parapertussis Not Detected (Not Detecte); Bordetella pertussis Not Detected (Not Detect); Chlamydophila pneumoniae Not Detected (Not Detect); Coronavirus 229E Not Detected (Not Detect); Coronavirus HKU1 Not Detected (Not Detect); Coronavirus NL 63 Not Detected (Not Detect); Coronavirus OC43 Not Detected (Not Detect); Human Metapneumovirus Not Detected (Not Detect); Human Rhinovirus/Enterovirus Not Detected (Not Detect); Influenza A Not Detected (Not Detect); Influenza B Not Detected (Not Detect); Mycoplasma pneumoniae Not Detected (Not Detect); Parainfluenza Virus 1 Not Detected (Not Detect); Parainfluenza Virus 2 Not Detected (Not Detect); Parainfluenza Virus 3 Not Detected (Not Detect); Parainfluenza Virus 4 Not Detected (Not Detect); Respiratory Syncytial Virus Not Detected (Not Detect); SARS- CoV-2 Not Detected (Not Detecte)
--- NOTE | 2023-10-06 08:59 | PC.NURSE ---
Pt up to bsc with stand by assist. Pt able to provide urine sample. Pt stated that she did not feel dizzy, lightheaded or weak while ambulating to commode.
[2023-10-06 09:36] LABS: Appearance Urine UA CLEAR; Bilirubin Urine UA NEGATIVE (NEGATIVE); Color Urine UA YELLOW; Glucose Urine UA NEGATIVE (Negative); Ketones Urine UA TRACE (NEGATIVE); Leukocyte Esterase Urine UA NEGATIVE (NEGATIVE); Nitrite Urine UA NEGATIVE (Negative); Occult Blood Urine UA NEGATIVE (Negative); Protein Urine UA NEGATIVE (Negative); Urobilinogen Urine UA 0.2 E.U./dL (0.2)
[2023-10-06 09:37] LABS: pH Urine UA 6.5 (4.5-8.0)
[2023-10-06 09:41] LABS: Bacteria Urine None Seen; RBC Urine None Seen (0-5/HPF); WBC Urine None Seen (0-5/HPF)
[2023-10-06 09:42] LABS: Culture Indicated Urine Cult Not Indicated; Squamous Epithelial Cell Urine 1-5 /HPF (0-5/HPF)
== END 2023-10-06 09:50 | disposition home or self-care (01) ==
PROVIDERS: Emergency Provider Emergency Medicine; Family Provider Internal Medicine; PCP Physician Assistant
DX: R53.1 Weakness (principal); I10 Essential (primary) hypertension; Z77.22 Contact with and (suspected) exposure to environmental tobacco smoke (acute) (chronic)
CPT/HCPCS: 71045; 80053; 81001; 83735; 84443; 85025; 87633; 93005; 99282; 99284

== ENCOUNTER 2024-03-19 13:19 | Emergency (ER) | payer MEDICARE, SELFPAY ==
[2024-03-19 13:24] VITALS: BP 166/85; PULSE 79; RESP 16; TEMP 36.6; O2SAT 98; BMI 21.3
--- NOTE | 2024-03-19 13:27 | DI.CT.S_ITS ---
PROCEDURE: CT HEAD/BRAIN WO CON INDICATIONS: fall TECHNIQUE: Noncontrast 4.5 mm thick angled axial sections acquired from the foramen magnum to the vertex, with coronal and sagittal reformats. For radiation dose reduction, the following was used: automated exposure control, adjustment of mA and/or kV according to patient size. COMPARISON: [facility], CT, CT HEAD/BRAIN WO CON, 05/14/2021, 19:43. FINDINGS: Image quality: Diagnostic. CSF spaces: Basal cisterns are patent. No extra-axial fluid collections. The ventricles are symmetric in size and shape. Brain: No intracranial bleeds or masses. There is cerebral volume loss for age, with resultant ventricular and sulcal prominence. There are moderate, age-appropriate periventricular and deep white matter chronic small vessel ischemic changes. There is intracranial internal carotid artery atherosclerosis. Skull and face: Calvarium and visualized facial bones appear intact, without suspicious lesions. Sinuses: Visualized sinuses and mastoids are clear. IMPRESSION: No acute intracranial pathology. Dictated by: Perry Hudson M.D. on 03/19/2024 at 14:12 Approved by: Perry Hudson M.D. on 03/19/2024 at 14:13
--- NOTE | 2024-03-19 13:27 | DI.CT.S_ITS ---
PROCEDURE: CT CERVICAL SPINE WO CON INDICATIONS: fall TECHNIQUE: Noncontrast 3 mm thick sections acquired from the skull base to the T4 level. Sagittal and coronal reformats were then constructed. For radiation dose reduction, the following was used: automated exposure control, adjustment of mA and/or kV according to patient size. COMPARISON: [facility], CT, CT CERVICAL SPINE WO CON, 02/11/2021, 13:39. FINDINGS: Image quality: Excellent. Bones: No fractures or dislocations. Visualized superior ribs are intact. Soft tissues: Prevertebral soft tissues are normal in thickness. No paravertebral hematomas. No apical pneumothoraces. IMPRESSION: No acute cervical fracture or dislocation. Dictated by: Perry Hudson M.D. on 03/19/2024 at 14:10 Approved by: Perry Hudson M.D. on 03/19/2024 at 14:12
--- NOTE | 2024-03-19 13:35 | ED.FALL ---
HPI - Fall General Chief Complaint: Fall Stated Complaint: fell and hit head on concrete Time Seen by Provider: 03/19/24 13:29 Source: patient Mode of arrival: Ambulatory History of Present Illness HPI Narrative: 88-year-old female presents for evaluation of head injury that occurred just prior to arrival. Patient was walking down an incline and slipped and fell, hitting the back of her head against the ground. She denies use of blood thinners, denies loss of consciousness. She was reporting a posterior headache where the impact was. Related Data Home Medications Medication Instructions Recorded Confirmed ASCORBIC ACID (#VITAMIN C) 500 - 1,000 mg PO QDAY ##0 09/23/11 08/27/23 CHOLECALCIFEROL (VITAMIN D3) 5,000 units PO BID ##0 06/21/13 08/27/23 [VITAMIN B 12] 1,000 mg PO QDAY ##0 06/21/13 08/27/23 ipratropium bromide 42 mcg (0.06 1 spray intranasal DIRECTED 04/07/19 08/27/23 %) nasal spray Lactobacillus cap PO 07/09/22 08/27/23 acidophilus-Bifidobac.animalis 2.5 billion cell capsule (Daily Probiotic) anastrozole 1 mg tablet (Arimidex) 1 mg PO DAILY 07/09/22 08/27/23 estradiol 10 mcg vaginal tablet 10 mcg vaginal DAILY 07/09/22 08/27/23 magnesium 200 mg tablet 200 mg PO DAILY 07/09/22 08/27/23 multivitamin 1 tab PO DAILY 07/09/22 08/27/23 amlodipine 5 mg tablet 1.5 mg PO DAILY 12/12/22 08/27/23 levothyroxine 88 mcg tablet 88 mcg PO DAILY 08/27/23 08/27/23 (Synthroid) Previous Rx's Medication Instructions Recorded vibegron 75 mg tablet (Gemtesa) 75 mg PO DAILY #30 tabs 12/26/23 Allergies Allergy/AdvReac Type Severity Reaction Status Date / Time adhesive Allergy Mild RASH, Verified 03/19/24 13:26 SEVERE BLISTERS azithromycin Allergy Mild RASH Verified 03/19/24 13:26 bacitracin Allergy Mild RASH Verified 03/19/24 13:26 [From Neosporin ([id number])] cefpodoxime Allergy Mild RASH Verified 03/19/24 13:26 neomycin Allergy Mild RASH Verified 03/19/24 13:26 [From Neosporin ([id number])] polymyxin B Allergy Mild RASH Verified 03/19/24 13:26 [From Neosporin ([id number])] Sulfa (Sulfonamide Allergy Mild RASH Verified 03/19/24 13:26 Antibiotics) tetracycline Allergy Mild RASH, Verified 03/19/24 13:26 SYNCOPE benzonatate Allergy Unknown Verified 03/19/24 13:26 losartan [LOSARTAN] Allergy Unknown Verified 03/19/24 13:26 aspirin AdvReac Intermediate RECTAL Verified 03/19/24 13:26 BLEED levofloxacin AdvReac Intermediate HEEL PAIN Verified 03/19/24 13:26 AND TENDONTITIS carvedilol AdvReac Mild MUSCLE Verified 03/19/24 13:26 WEAKNESS ciprofloxacin AdvReac Mild HEEL PAIN Verified 03/19/24 13:26 metoprolol AdvReac Mild WEAK, Verified 03/19/24 13:26 NAUSEA oxybutinin AdvReac Intermediate Uncoded 03/19/24 13:26 Review of Systems Review of Systems Narrative: see HPI Patient History Medical History Overactive bladder Secondhand smoke exposure History of urinary tract infection Perimenopausal atrophic vaginitis Urge incontinence Pacemaker Cancer of breast GERD (gastroesophageal reflux disease) Diverticulosis Hyperlipidemia Hypertension Surgical History H/O breast biopsy History of tubal ligation History of knee replacement Family History Father Diabetes mellitus Mother Eczema Social History marital status: number of children: 4 Smoking Status: Never smoker alcohol intake: current substance use type: does not use Type(s) of exercise: regular exercise frequency: 3-4 times per week Smoking Status: Never smoker alcohol intake frequency: holidays/special occasions only Substance Use Type: does not use Exam Initial Vital Signs Initial Vital Signs: Vital Signs Temperature 97.8 F 03/19/24 13:24 Pulse Rate 79 03/19/24 13:24 Respiratory Rate 16 03/19/24 13:24 Blood Pressure 166/85 H 03/19/24 13:24 Pulse Oximetry 98 03/19/24 13:24 Oxygen Delivery Method Room Air 03/19/24 13:24 Const: Awake, alert, no acute distress, nontoxic appearing Head: golf-ball sized swelling occiput of scalp Skin: Warm, Dry, intact, no rashes Neuro: AO x3, CN II-XII grossly intact, moves all extremities Course Orders Ordered: Discontinued Medications Acetaminophen (Acetaminophen 325 Mg Tablet) 975 mg PO NOW ONE Stop: 03/19/24 13:36 Last Admin: 03/19/24 13:46 Dose: 975 mg Documented By: ELEAZAR Vital Signs Vital signs: Vital Signs - 8 hr 03/19/24 13:24 03/19/24 14:35 Temperature 97.8 F Pulse Rate 79 Respiratory Rate 16 Blood Pressure 166/85 H 152/73 H Pulse Oximetry 98 Oxygen Delivery Method Room Air MDM - Fall Differential Diagnosis Differential diagnosis: Likely syncope, dislocation of shoulder region and fracture of wrist Imaging Data CT scan - head: Radiologist's Impression: PROCEDURE: CT HEAD/BRAIN WO CON INDICATIONS: fall TECHNIQUE: Noncontrast 4.5 mm thick angled axial sections acquired from the foramen magnum to the vertex, with coronal and sagittal reformats. For radiation dose reduction, the following was used: automated exposure control, adjustment of mA and/or kV according to patient size. COMPARISON: [facility], CT, CT HEAD/BRAIN WO CON, 05/14/2021, 19:43. FINDINGS: Image quality: Diagnostic. CSF spaces: Basal cisterns are patent. No extra-axial fluid collections. The ventricles are symmetric in size and shape. Brain: No intracranial bleeds or masses. There is cerebral volume loss for age, with resultant ventricular and sulcal prominence. There are moderate, age-appropriate periventricular and deep white matter chronic small vessel ischemic changes. There is intracranial internal carotid artery atherosclerosis. Skull and face: Calvarium and visualized facial bones appear intact, without suspicious lesions. Sinuses: Visualized sinuses and mastoids are clear. IMPRESSION: No acute intracranial pathology. Dictated by: Perry Hudson M.D. on 03/19/2024 at 14:12 Approved by: Perry Hudson M.D. on 03/19/2024 at 14:13 CT - cervical spine: Radiologist's Impression: PROCEDURE: CT CERVICAL SPINE WO CON INDICATIONS: fall TECHNIQUE: Noncontrast 3 mm thick sections acquired from the skull base to the T4 level. Sagittal and coronal reformats were then constructed. For radiation dose reduction, the following was used: automated exposure control, adjustment of mA and/or kV according to patient size. COMPARISON: [facility], CT, CT CERVICAL SPINE WO CON, 02/11/2021, 13:39. FINDINGS: Image quality: Excellent. Bones: No fractures or dislocations. Visualized superior ribs are intact. Soft tissues: Prevertebral soft tissues are normal in thickness. No paravertebral hematomas. No apical pneumothoraces. IMPRESSION: No acute cervical fracture or dislocation. Dictated by: Perry Hudson M.D. on 03/19/2024 at 14:10 Approved by: Perry Hudson M.D. on 03/19/2024 at 14:12 MDM Narrative Medical decision making narrative: Ground level fall with head injury. Not on blood thinners. Due to patient's age [address] without contrast was ordered, which was negative for acute traumatic findings. Patient given Tylenol in the emergency department and ice pack applied to head. Patient advised to continue to use Tylenol and ice as needed for pain Discharge Plan Departure Patient Disposition: Home Clinical Impression: Head injury Instructions: DI for Closed Head Injury Activity Restrictions/Additional Instructions: Your CT imaging is negative for any fractures or bleeds. Take Tylenol as needed for pain and apply ice to areas of swelling. Please follow up with your primary care physician. Prescriptions: No Action ASCORBIC ACID (#VITAMIN C) 500 - 1,000 mg PO QDAY Qty: 0 CHOLECALCIFEROL (VITAMIN D3) 5,000 units PO BID Qty: 0 [VITAMIN B 12] 1,000 mg PO QDAY Qty: 0 Gemtesa 75 mg tablet 75 mg PO DAILY Qty: 30 12RF ipratropium bromide 42 mcg (0.06 %) spray,non-aerosol 1 spray Intranasal DIRECTED anastrozole [Arimidex] 1 mg tablet 1 mg PO DAILY estradiol 10 mcg tablet 10 mcg vaginal DAILY magnesium 200 mg tablet 200 mg PO DAILY multivitamin Tablet 1 tab PO DAILY Daily Probiotic 2.5 billion cell capsule PO amlodipine 5 mg tablet 1.5 mg PO DAILY levothyroxine [Synthroid] 88 mcg tablet 88 mcg PO DAILY Referrals: Barb Barnes PA-C [Primary Care Provider] - Stand Alone Forms: Patient Portal/API
[2024-03-19] MEDS: ACETAMINOPHEN 325 MG TABLET 975 MG PO (13:46)
[2024-03-19 14:35] VITALS: BP 152/73
== END 2024-03-19 14:35 | disposition home or self-care (01) ==
PROVIDERS: Emergency Provider Emergency Medicine; Family Provider Internal Medicine; PCP Physician Assistant
DX: S09.90XA Unspecified injury of head, initial encounter (principal); W01.0XXA Fall on same level from slipping, tripping and stumbling without subsequent striking against object, initial encounter
CPT/HCPCS: 70450; 72125; 99283; 99284

== ENCOUNTER → 2024-03-22 14:55 | Outpatient (CLI) | payer MEDICARE, SELFPAY ==
--- NOTE | 2024-03-22 14:58 | DI.RAD.S_ITS ---
PROCEDURE: XR SACRUM COCCYX MIN 2V INDICATIONS: PAIN COCCYX RECENT FALL TECHNIQUE: 3 views of the sacrum and coccyx acquired. COMPARISON: None. FINDINGS: Bones: Anterior angulation at the sacrococcygeal junction may indicate acute fracture. No suspicious bony lesions. Soft tissues: Visualized bowel gas pattern is normal. No suspicious soft tissue densities. IMPRESSION: Question acute fracture at the sacrococcygeal junction. Dictated by: Perry Hudson M.D. on 03/22/2024 at 19:38 Approved by: Perry Hudson M.D. on 03/22/2024 at 19:39
--- NOTE | 2024-03-22 14:58 | DI.RAD.S_ITS ---
PROCEDURE: XR LUMBAR SPINE 2-3V INDICATIONS: PAIN COCCYX RECENT FALL TECHNIQUE: 3 views of the lumbar spine were acquired. COMPARISON: [facility], , L-SPINE 2-3 VIEWS, 11/18/2008, 15:51. FINDINGS: Bones: 5 [id number] vertebrae are present. Mild rotatory dextro curvature centered at L3. Multilevel degenerative disc space loss. Prominent lumbar facet arthropathy. No vertebral body compression fractures. No suspicious bony lesions. Soft tissues: Overlying bowel gas pattern is normal. No suspicious soft tissue calcifications. IMPRESSION: No acute bony abnormality. Scoliotic curvature, degenerative change. Dictated by: Perry Hudson M.D. on 03/22/2024 at 19:36 Approved by: Perry Hudson M.D. on 03/22/2024 at 19:38
== END ==
LOC: RAD 14:57
PROVIDERS: Family Provider Internal Medicine; PCP Physician Assistant; Referring Provider Student in an Organized Health Care Education/Training Program; Visit Provider Student in an Organized Health Care Education/Training Program
DX: M53.3 Sacrococcygeal disorders, not elsewhere classified (principal); M47.816 Spondylosis without myelopathy or radiculopathy, lumbar region; M41.9 Scoliosis, unspecified
CPT/HCPCS: 72100; 72220

== ENCOUNTER → 2024-04-01 16:40 | Outpatient (CLI) | payer MEDICARE, SELFPAY ==
[2024-04-01 18:03] LABS: Add Manual Diff / Slide Review NO; Basophils Absolute Auto 0 /uL (0-100); Basophils Percent Auto 0.6 % (0-2); Eosinophils Absolute Auto 200 /uL (0-450); Eosinophils Percent Auto 2.7 % (2-4); Hematocrit 38.4 % (36-46); Hemoglobin 12.9 g/dL (12.0-16.0); Lymphocytes Absolute Auto 1700 /uL (1100-4500); Lymphocytes Percent Auto 25.9 % (25-40); Mean Corpuscular HGB Conc 33.5 % (30-36); Mean Corpuscular Hemoglobin 31.6 PG (26-34); Mean Corpuscular Volume 94.1 fL (80-100); Monocytes Absolute Auto 500 /uL (0-900); Monocytes Percent Auto 7.3 % (3-14); Neutrophils Absolute Auto 4200 /uL (1500-7000); Neutrophils Percent Auto 63.5 % (50-75); Platelet Count 248 X10^3/uL (150-400); Red Blood Cell Count 4.08 X10^6/uL (4.0-5.2); Red Cell Distribution Width 14.6 % (11.6-14.8); White Blood Cell Count 6.6 X10^3/uL (4.5-11.0)
[2024-04-01 18:23] LABS: Erythrocyte Sedimentation Rate 10 MM/HR (0-20)
[2024-04-01 19:11] LABS: Alanine Aminotransferase 22 IU/L (<35); Albumin 4.4 g/dL (3.5-5.0); Albumin Globulin Ratio 1.5 (1.0-2.8); Alkaline Phosphatase 86 U/L (38-126); Aspartate Aminotransferase 29 IU/L (14-36); BUN Creatinine Ratio 31.8 (6-22); Bilirubin Total 0.8 mg/dL (0.2-1.3); Blood Urea Nitrogen 27 mg/dL (7-17); Calcium 8.9 mg/dL (8.4-10.2); Carbon Dioxide 27 mmol/L (22-32); Chloride 102 mmol/L (98-107); Estimated Glomerular Filt Rate > 60 mL/min (>60); Glucose 108 mg/dL (80-110); HEMOLYSIS < 15 (0-50); Potassium 3.6 mmol/L (3.4-5.1); Sodium 137 mmol/L (137-145); Total Protein 7.4 g/dL (6.3-8.2)
[2024-04-01 19:14] LABS: High Sensitivity CRP - Cardiac 1.5 mg/L (1.0-3.0)
[2024-04-01 19:43] LABS: Thyroid Stimulating Hormone 0.811 uIU/mL (0.47-4.68)
== END ==
PROVIDERS: Family Provider Internal Medicine; PCP Physician Assistant; Referring Provider Physician Assistant; Visit Provider Physician Assistant
DX: H57.12 Ocular pain, left eye (principal)
CPT/HCPCS: 36415; 80053; 83519; 84443; 85025; 85651; 86140

== ENCOUNTER → 2024-08-27 09:37 | Outpatient (CLI) | payer MEDICARE, SELFPAY | PROVIDERS: Family Provider Internal Medicine; PCP Physician Assistant; Visit Provider Urology | DX: N32.81 Overactive bladder (principal); N39.41 Urge incontinence; Z87.440 Personal history of urinary (tract) infections | CPT/HCPCS: 87086 ==

== ENCOUNTER 2025-02-19 07:03 | Emergency (ER) | payer MEDICARE, SELFPAY ==
[2025-02-19] VITALS (12 sets, daily range): BP systolic 151–178; BP diastolic 72–79; PULSE 60–78; RESP 16–31; TEMP 37.1; O2SAT 96–99; BMI 29.7
--- NOTE | 2025-02-19 07:19 | EKG_ITS ---
[address] [address] Test Date: 2025-02-19 Pat Name: Cecily Bain Department: Room: Gender: Female Performance Improvement Consultant: EVRAISTO : 1935 Requested By: Order Number: [id number] Reading MD: Shaw Son Measurements Intervals [place] Rate: 64 P: 19 ND: 146 QRS: -54 QRSD: 168 T: -42 QT: 460 QTc: 474 Interpretive Statements Sinus rhythm with premature atrial complexes Left axis deviation Right bundle branch block Minimal voltage criteria for LVH, may be normal variant ( R in aVL ) Electronically Signed On 02-22-2025 20:09:36 PDT by Shaw Son
--- NOTE | 2025-02-19 07:25 | ED.WEAKNESS ---
HPI - Weakness General Chief complaint: Weakness Stated complaint: Weak, low heart rate Time Seen by Provider: 02/19/25 07:10 Source: patient and family Mode of arrival: Wheelchair History of Present Illness HPI Narrative: Patient is a 89-year-old history of pacemaker, hypertension history of breast cancer presenting to day with generalized weakness in right leg spasm. He was states he was in her normal state of health when she woke up this morning and felt an ache in her right leg. This is normal for her she was in fact also been here for the same before. Got up went to the bathroom where she felt like her leg gave out on her. Did not hit her head. No other weakness no chest pain or palpitations. She was able to move all extremities Patient also states that she had the pacemaker heart rate is going low into the 40s and then increasing back up. She was not pass out. No dizziness Related Data Home Medications Medication Instructions Recorded Confirmed ASCORBIC ACID (#VITAMIN C) 500 - 1,000 mg PO QDAY ##0 09/23/11 08/27/24 CHOLECALCIFEROL (VITAMIN D3) 5,000 units PO BID ##0 06/21/13 08/27/24 anastrozole 1 mg tablet (Arimidex) 1 mg PO DAILY 07/09/22 08/27/24 magnesium 200 mg tablet 200 mg PO DAILY 07/09/22 08/27/24 amlodipine 5 mg tablet 1.5 mg PO DAILY 12/12/22 08/27/24 levothyroxine 88 mcg tablet 88 mcg PO DAILY 08/27/23 08/27/24 (Synthroid) azelastine 137 mcg-fluticasone 50 1 spray intranasal BID 08/27/24 08/27/24 mcg/spray nasal spray cholecalciferol (vitamin D3) 10 10 mcg PO DAILY 08/27/24 08/27/24 mcg (400 unit) capsule Previous Rx's Medication Instructions Recorded vibegron 75 mg tablet (Gemtesa) 75 mg PO DAILY #90 tabs 08/27/24 estradiol 10 mcg vaginal tablet 10 mcg vaginal 2XW #90 tabs 08/31/24 Allergies Allergy/AdvReac Type Severity Reaction Status Date / Time adhesive Allergy Mild RASH, Verified 03/19/24 13:26 SEVERE BLISTERS azithromycin Allergy Mild RASH Verified 03/19/24 13:26 bacitracin Allergy Mild RASH Verified 03/19/24 13:26 [From Neosporin ([id number])] cefpodoxime Allergy Mild RASH Verified 03/19/24 13:26 neomycin Allergy Mild RASH Verified 03/19/24 13:26 [From Neosporin ([id number])] polymyxin B Allergy Mild RASH Verified 03/19/24 13:26 [From Neosporin ([id number])] Sulfa (Sulfonamide Allergy Mild RASH Verified 03/19/24 13:26 Antibiotics) tetracycline Allergy Mild RASH, Verified 03/19/24 13:26 SYNCOPE benzonatate Allergy Unknown Verified 03/19/24 13:26 losartan [LOSARTAN] Allergy Unknown Verified 03/19/24 13:26 aspirin AdvReac Intermediate RECTAL Verified 03/19/24 13:26 BLEED levofloxacin AdvReac Intermediate HEEL PAIN Verified 03/19/24 13:26 AND TENDONTITIS carvedilol AdvReac Mild MUSCLE Verified 03/19/24 13:26 WEAKNESS ciprofloxacin AdvReac Mild HEEL PAIN Verified 03/19/24 13:26 metoprolol AdvReac Mild WEAK, Verified 03/19/24 13:26 NAUSEA oxybutinin AdvReac Intermediate Uncoded 03/19/24 13:26 Patient History Medical History Overactive bladder Secondhand smoke exposure History of urinary tract infection Perimenopausal atrophic vaginitis Urge incontinence Pacemaker Cancer of breast GERD (gastroesophageal reflux disease) Diverticulosis Hyperlipidemia Hypertension Surgical History H/O breast biopsy History of tubal ligation History of knee replacement Family History Father Diabetes mellitus Mother Eczema Social History marital status: number of children: 4 Smoking Status: Never smoker alcohol intake: current substance use type: does not use Type(s) of exercise: regular exercise frequency: 3-4 times per week Smoking Status: Never smoker alcohol intake frequency: holidays/special occasions only Exam Initial Vital Signs Initial Vital Signs: Vital Signs Pulse Rate 70 02/19/25 07:13 Pulse Oximetry 98 02/19/25 07:13 GENERAL: Alert pleasant 89-year-old female and in no acute distress. HEENT: Head atraumatic,EOMI, pupils reactive, face symmetric, moist mucous membranes CARDIOVASCULAR: Regular rate and rhythm without murmurs, rubs or gallops. RESPIRATORY: Breath sounds equal bilaterally, no wheezes rales or rhonchi. ABDOMEN: Soft, nontender. Normoactive bowel sounds all 4 quadrants. No guarding or rebound. EXTREMITIES: Normal range of motion, no clubbing or edema. Neurovascularly intact NEUROLOGICAL: Alert and oriented x4.Normal gait and speech. Cranial nerves II through XII grossly intact. Able to lift both extremities no significant before in the same calf good [id number] SKIN: Warm, dry, no laceration, no petechiae, no rashes or lesions. Course Orders Ordered: ED Orders 02/19/25 07:27 XR chest 1V Stat EKG-12 Lead Stat 02/19/25 07:45 Complete Blood Count AUTO DIFF Stat Comprehensive Metabolic Panel Stat Lipase Stat Troponin & CK Cardiac Panel Stat Vital Signs Vital signs: Vital Signs - 8 hr 02/19/25 10:30 02/19/25 10:30 Pulse Rate 69 Blood Pressure 157/73 H Pulse Oximetry 96 MDM - Weakness Lab Data 02/19/25 07:45 02/19/25 07:45 Labs: Lab Results 02/19/25 Range/Units 07:45 WBC 4.5 (4.5-11.0) X10^3/uL RBC 4.29 (4.0-5.2) X10^6/uL Hgb 13.6 (12.0-16.0) g/dL Hct 40.3 (36-46) % MCV 93.9 (80-100) fL MCH 31.6 (26-34) PG MCHC 33.7 (30-36) % RDW 14.2 (11.6-14.8) % Plt Count 240 (150-400) X10^3/uL Neut % (Auto) 56.7 (50-75) % Lymph % (Auto) 30.3 (25-40) % Mobile % (Auto) 8.0 (3-14) % Eos % (Auto) 3.7 (2-4) % Baso % (Auto) 1.3 (0-2) % Neut # (Auto) 2600 (0475-5973) /uL Lymph # (Auto) 1400 (7310-9521) /uL Mobile # (Auto) 400 (0-900) /uL Eos # (Auto) 200 (0-450) /uL Baso # (Auto) 100 (0-100) /uL Sodium 134 L (137-145) mmol/L Potassium 4.3 (3.4-5.1) mmol/L Chloride 101 (98-107) mmol/L Carbon Dioxide 27 (22-32) mmol/L BUN 18 H (7-17) mg/dL Creatinine 0.69 (0.52-1.04) mg/dL Estimated GFR > 60 (>60) mL/min BUN/Creatinine Ratio 26.1 H (6-22) Glucose 153 H (80-110) mg/dL Calcium 9.4 (8.4-10.2) mg/dL Total Bilirubin 1.3 (0.2-1.3) mg/dL AST 36 (14-36) IU/L ALT 29 (<35) IU/L Alkaline Phosphatase 63 (38-126) U/L Total Creatine Kinase 105 (30-135) U/L Troponin I < 0.012 (0.01-0.034) ng/mL Total Protein 7.5 (6.3-8.2) g/dL Albumin 4.4 (3.5-5.0) g/dL Globulin 3.1 (1.7-4.1) g/dL Albumin/Globulin Ratio 1.4 (1.0-2.8) Lipase 35 (23-300) U/L Urine Dip Bedside Urine Glucose Negative Bedside Urine Bilirubin - Negative Bedside Urine Ketone - Negative Urine Specific [place] 1.005 Bedside Urine Occult Blood - Negative Bedside Urine pH 8.0 Bedside Urine Protein - Negative Bedside Urine Urobilinogen - Negative Bedside Urine Nitrite - Negative Bedside Urine Leukocytes - Negative Esterase Imaging Data Chest x-ray: Radiologist Impression: PROCEDURE: XR CHEST 1V INDICATIONS: chest pain TECHNIQUE: One view of the chest was acquired. COMPARISON: [facility], CR, XR CHEST 2 VIEWS, 07/23/2024, 16:38. [facility], CR, XR CHEST 1V, 10/06/2023, 7:47. FINDINGS: Surgical changes and devices: Right breast clips are seen. A leadless pacer can be seen. Lungs and pleura: No focal infiltrates are seen. A right midlung granuloma is again seen. No pleural effusions or pneumothorax. Mediastinum: The cardiac contours are within normal limits. The aorta demonstrates calcification and tortuosity. Bones and chest wall: Age-appropriate bony degenerative changes are seen. No suspicious bony lesions. Overlying soft tissues appear unremarkable. IMPRESSION: No acute cardiopulmonary abnormality is seen. Additional findings: Postoperative changes Right midlung calcified granuloma Degenerative change Dictated by: Jed Newman M.D. on 02/19/2025 at 7:13 ECG Data Attestation: I personally reviewed and interpreted this ECG as follows: Interpretation: Sinus rhythm rate 64 MO interval 146 QRS 168 QTC 474 right bundle-branch block noted similar to previous EKGs no acute changes MDM Narrative Medical decision making narrative: MDM CC: Weakness Complicating co-morbidities: Pacemaker, hypertension Data collected from: Patient previous records Medical records reviewed: Differential considered: [ ] Exam documented above, pertinent findings include: Awake alert 89-year-old female move extremities able to lift legs Lab Test results independently reviewed as above. Pertinent findings: CBC no leukocytosis no anemia CMP sodium is 134 other electrolytes within normal limits creatinine 0.69 improved from baseline glucose 153 Bilirubin,AST ALT alk-phos within normal limits Troponin negative Urinalysis no evidence of UTI Independently reviewed EKG as above Sinus rhythm right bundle-branch block no ischemia similar to previous EKGs Imaging studies independently reviewed: Chest x-ray no acute cardiopulmonary process Consultations: None Treatments: None Pacemaker interrogation by [employer]. Patient has a leave was pacemaker she was paced less than 1% of the time. She was an AV conduction does allow her heart rate to go down to the 40s but typically at 55. Re-evaluations: Patient reports leg pain has a completely improved heart rate remained stable. Discussion: Patient 89-year-old female who presents today with right vague cramping. She has no weakness or numbness on exam low concern for CVA or TIA. She was able to bear weight and stand. She did not fall no need for imaging. Leg cramp has completely resolved this happens to her. She does report that she has a low heart rate at times and then the pacemaker comes in. She was not passed out or had a syncopal episode. Pacemaker interrogated seems to be working appropriately. It seems that she may be symptomatic to a lower heart rate. Recommend talking to Cardiology and having them change the heart rate. I did discuss this with the son at bedside. No evidence of infection no leukocytosis urinalysis is clear. Discharge Plan Departure Patient Disposition: Home Clinical Impression: Cramp in lower leg, Bradycardia Instructions: DI for Bradycardia Activity Restrictions/Additional Instructions: *You have been diagnosed with bradycardia *What to do: At this time your pacemaker is working appropriately your heart rate is allowed to go down to 40. However if this is bothersome to you please talk to your last picker about changing this number. Blood work is overall reassuring *Continue to take medications as directed *Follow up with your primary care provider in 2-3 days or call [phone] *Return to ER if you should have passing out chest pain weakness or any new, worsening or concerning symptoms Prescriptions: No Action ASCORBIC ACID (#VITAMIN C) 500 - 1,000 mg PO QDAY Qty: 0 CHOLECALCIFEROL (VITAMIN D3) 5,000 units PO BID Qty: 0 estradiol 10 mcg tablet 10 mcg vaginal 2XW Qty: 90 3RF Rx Instructions: Insert 1 tablet vaginally 2 times per week. azelastine-fluticasone 137-50 mcg/spray spray,non-aerosol 1 spray intranasal BID Rx Instructions: administer into each nostril cholecalciferol (vitamin D3) 10 mcg (400 unit) capsule 10 mcg PO DAILY Gemtesa 75 mg tablet 75 mg PO DAILY Qty: 90 3RF anastrozole [Arimidex] 1 mg tablet 1 mg PO DAILY magnesium 200 mg tablet 200 mg PO DAILY amlodipine 5 mg tablet 1.5 mg PO DAILY levothyroxine [Synthroid] 88 mcg tablet 88 mcg PO DAILY Referrals: Barb Barnes PA-C [Primary Care Provider] - Stand Alone Forms: Patient Portal/API/Survey
[2025-02-19 07:55] LABS: Add Manual Diff / Slide Review NO; Basophils Absolute Auto 100 /uL (0-100); Basophils Percent Auto 1.3 % (0-2); Eosinophils Absolute Auto 200 /uL (0-450); Eosinophils Percent Auto 3.7 % (2-4); Hematocrit 40.3 % (36-46); Hemoglobin 13.6 g/dL (12.0-16.0); Lymphocytes Absolute Auto 1400 /uL (1100-4500); Lymphocytes Percent Auto 30.3 % (25-40); Mean Corpuscular HGB Conc 33.7 % (30-36); Mean Corpuscular Hemoglobin 31.6 PG (26-34); Mean Corpuscular Volume 93.9 fL (80-100); Monocytes Absolute Auto 400 /uL (0-900); Neutrophils Absolute Auto 2600 /uL (1500-7000); Neutrophils Percent Auto 56.7 % (50-75); Platelet Count 240 X10^3/uL (150-400); Red Blood Cell Count 4.29 X10^6/uL (4.0-5.2); Red Cell Distribution Width 14.2 % (11.6-14.8); White Blood Cell Count 4.5 X10^3/uL (4.5-11.0)
[2025-02-19 08:31] LABS: Alanine Aminotransferase 29 IU/L (<35); Albumin 4.4 g/dL (3.5-5.0); Albumin Globulin Ratio 1.4 (1.0-2.8); Alkaline Phosphatase 63 U/L (38-126); Aspartate Aminotransferase 36 IU/L (14-36); BUN Creatinine Ratio 26.1 (6-22); Bilirubin Total 1.3 mg/dL (0.2-1.3); Blood Urea Nitrogen 18 mg/dL (7-17); Calcium 9.4 mg/dL (8.4-10.2); Carbon Dioxide 27 mmol/L (22-32); Chloride 101 mmol/L (98-107); Creatine Kinase 105 U/L (30-135); Estimated Glomerular Filt Rate > 60 mL/min (>60); Globulin 3.1 g/dL (1.7-4.1); Glucose 153 mg/dL (80-110); HEMOLYSIS 26 (0-50); Lipase 35 U/L (23-300); Potassium 4.3 mmol/L (3.4-5.1); Sodium 134 mmol/L (137-145); Total Protein 7.5 g/dL (6.3-8.2)
[2025-02-19 08:43] LABS: Troponin I < 0.012 ng/mL (0.01-0.034)
--- NOTE | 2025-02-19 09:12 | PC.NURSE ---
reports she woke with severe cramping in the R calf. weakness. unable to ambulate well on her own. drank a liquid IV for electrolytes. pacemaker in place. denies SOB. NSR 63. denies CP.
== END 2025-02-19 11:15 | disposition home or self-care (01) ==
PROVIDERS: Emergency Provider Emergency Medicine; Family Provider Internal Medicine; PCP Physician Assistant
DX: R00.1 Bradycardia, unspecified (principal); R25.2 Cramp and spasm; I45.10 Unspecified right bundle-branch block; Z95.0 Presence of cardiac pacemaker
CPT/HCPCS: 36415; 71045; 80053; 81003; 82550; 83690; 84484; 85025; 93005; 99283; 99284

== ENCOUNTER 2025-05-13 13:41 | Emergency (ER) | payer MEDICARE, SELFPAY ==
[2025-05-13 13:45] VITALS: BP 167/77; PULSE 80; RESP 16; TEMP 36.7; O2SAT 98; BMI 30.2
--- NOTE | 2025-05-13 13:57 | DI.US.S_ITS ---
PROCEDURE: US PERIPH VENOUS LOW EXTREM BI INDICATIONS: swelling bilateral, elevated dimer per smokey pt WIC TECHNIQUE: Real-time imaging, as well as color and pulse Doppler interrogation, were performed of the deep veins of both legs from the inguinal ligament to the popliteal fossa, with documentation of the visualized calf veins. COMPARISON: [facility], , US PERIP VENOUS LOW EXTREM BI, 07/08/2022, 10:49. FINDINGS: Right: The common femoral, femoral, popliteal, and the visualized calf veins are normally compressible, and free of intraluminal thrombus. Color and pulse Doppler demonstrate normal phasic intravascular flow. There is normal augmentation response to distal compression maneuver. Left: The common femoral, femoral, popliteal, and the visualized calf veins are normally compressible, and free of intraluminal thrombus. Color and pulse Doppler demonstrate normal phasic intravascular flow. There is normal augmentation response to distal compression maneuver. Calf edema bilaterally is seen. IMPRESSION: No findings of deep venous thrombosis in either lower extremity. Dictated by: Jorge L Cedillo M.D. on 05/13/2025 at 14:56 Approved by: Jorge L Cedillo M.D. on 05/13/2025 at 14:57
--- NOTE | 2025-05-13 16:31 | ED.EXTPRO ---
HPI - Extremity Problem General Chief complaint: Extremity Problem,Nontraumatic Stated complaint: D DIMER is elevated Time Seen by Provider: 05/13/25 15:49 Source: patient Mode of arrival: Ambulatory History of Present Illness HPI Narrative: 89-year-old female history of hypertension, dyslipidemia, hypothyroidism patient presents with complaint of increased swelling of her lower extremity starting Friday. Patient noticed 1st her left leg was little bit more swollen than her right. She states it has actually been getting better. She was seen at an outside clinic and had a dimer ordered which was found to be elevated. Patient has not had any pain no redness, no other skin changes she states the swelling is actually improved quite a bit. She denies fevers or chills. No redness, warmth or other changes to her lower extremities. No chest pain, no shortness of breath, no orthopnea. No nausea or vomiting no other GI or urinary symptoms. Has had some occasionally some swelling in her extremities states this has a little bit faster than typical but also states that is resolving. She does not normally use compression stockings and elevate her legs during the day. She does take amlodipine which he has been taking longstanding she takes ezetimibe, takes medication for hypothyroidism does not take any aspirin or thinners no diabetes. She states she does have some allergies to medications. States she was had prior knee surgery and pacemaker but no other cardiac interventions or cardiac stents. No tobacco, occasional alcohol, no recreational drugs. Related Data Home Medications ?Medication ?Instructions ?Recorded ?Confirmed ASCORBIC ACID (#VITAMIN C) 500 - 1,000 mg PO QDAY ##0 09/23/11 08/27/24 CHOLECALCIFEROL (VITAMIN D3) 5,000 units PO BID ##0 06/21/13 08/27/24 anastrozole 1 mg tablet (Arimidex) 1 mg PO DAILY 07/09/22 08/27/24 magnesium 200 mg tablet 200 mg PO DAILY 07/09/22 08/27/24 amlodipine 5 mg tablet 1.5 mg PO DAILY 12/12/22 08/27/24 levothyroxine 88 mcg tablet 88 mcg PO DAILY 08/27/23 08/27/24 (Synthroid) azelastine 137 mcg-fluticasone 50 1 spray intranasal BID 08/27/24 08/27/24 mcg/spray nasal spray cholecalciferol (vitamin D3) 10 10 mcg PO DAILY 08/27/24 08/27/24 mcg (400 unit) capsule Previous Rx's ?Medication ?Instructions ?Recorded vibegron 75 mg tablet (Gemtesa) 75 mg PO DAILY #90 tabs 08/27/24 estradiol 10 mcg vaginal tablet 10 mcg vaginal 2XW #90 tabs 08/31/24 Allergies Allergy/AdvReac Type Severity Reaction Status Date / Time adhesive Allergy Mild RASH, Verified 05/13/25 13:48 SEVERE BLISTERS azithromycin Allergy Mild RASH Verified 05/13/25 13:48 bacitracin (From Neosporin Allergy Mild RASH Verified 05/13/25 13:48 ([id number])) cefpodoxime Allergy Mild RASH Verified 05/13/25 13:48 neomycin (From Neosporin Allergy Mild RASH Verified 05/13/25 13:48 ([id number])) polymyxin B (From Neosporin Allergy Mild RASH Verified 05/13/25 13:48 ([id number])) Sulfa (Sulfonamide Allergy Mild RASH Verified 05/13/25 13:48 Antibiotics) tetracycline Allergy Mild RASH, Verified 05/13/25 13:48 SYNCOPE benzonatate Allergy Unknown Verified 05/13/25 13:48 losartan (LOSARTAN) Allergy Unknown Verified 05/13/25 13:48 aspirin AdvReac Intermediate RECTAL Verified 05/13/25 13:48 BLEED levofloxacin AdvReac Intermediate HEEL PAIN Verified 05/13/25 13:48 AND TENDONTITIS carvedilol AdvReac Mild MUSCLE Verified 05/13/25 13:48 WEAKNESS ciprofloxacin AdvReac Mild HEEL PAIN Verified 05/13/25 13:48 metoprolol AdvReac Mild WEAK, Verified 05/13/25 13:48 NAUSEA oxybutinin AdvReac Intermediate Uncoded 05/13/25 13:48 Review of Systems Review of Systems ROS Unobtainable: All systems reviewed & are unremarkable except as noted in HPI and below Patient History Medical History Overactive bladder Secondhand smoke exposure History of urinary tract infection Perimenopausal atrophic vaginitis Urge incontinence Pacemaker Cancer of breast GERD (gastroesophageal reflux disease) Diverticulosis Hyperlipidemia Hypertension Surgical History H/O breast biopsy History of tubal ligation History of knee replacement Family History Father Diabetes mellitus Mother Eczema Social History marital status: number of children: 4 Smoking Status: Never smoker alcohol intake: current substance use type: does not use Type(s) of exercise: regular exercise frequency: 3-4 times per week Smoking Status: Never smoker alcohol intake frequency: holidays/special occasions only Exam Initial Vital Signs Initial Vital Signs: Vital Signs Temperature 98.0 F 05/13/25 13:45 Pulse Rate 80 05/13/25 13:45 Respiratory Rate 16 05/13/25 13:45 Blood Pressure 167/77 H 05/13/25 13:45 Pulse Oximetry 98 05/13/25 13:45 Oxygen Delivery Method Room Air 05/13/25 13:45 Course Orders Ordered: ED Orders 05/13/25 13:57 US periph venous low extrem bi Stat Vital Signs Vital signs: Vital Signs - 8 hr 05/13/25 13:45 05/13/25 16:40 05/13/25 16:41 Temperature 98.0 F 97.6 F Pulse Rate 80 Respiratory Rate 16 20 Blood Pressure 167/77 H 165/77 H Pulse Oximetry 98 97 Oxygen Delivery Method Room Air 05/13/25 16:41 05/13/25 17:00 05/13/25 17:00 Temperature Pulse Rate 63 63 Respiratory Rate Blood Pressure 164/78 H Pulse Oximetry 99 99 Oxygen Delivery Method MDM - Extremity (Nontraumatic) MDM Narrative Medical decision making narrative: 89-year-old female with complaint of left lower extremity swelling was at [facility] walk-in clinic had elevated D-dimer and sent to the emergency department. Bilateral lower extremity peripheral venous ultrasound shows calf edema bilaterally no findings of DVT in either extremity. Discharge Plan Departure Patient Disposition: Home Clinical Impression: Swelling of both lower extremities, D-dimer, elevated Activity Restrictions/Additional Instructions: Your ultrasound imaging does show some edema but no DVT or blood clots. As your swelling is already improving I would not adjust or change your medications at this time. Continue to use your compression stockings daily. Continue to elevate your legs throughout the day. If you have recurrent or persistent swelling in your lower extremities please follow up with primary care. If you are having rapidly worsening symptoms, new chest pain, new shortness of breath, difficulty lying flat, lightheadedness or passing out, rapidly worsening swelling, new redness, warmth or other skin changes return to the emergency department for re-evaluation. Prescriptions: No Action ASCORBIC ACID (#VITAMIN C) 500 - 1,000 mg PO QDAY Qty: 0 CHOLECALCIFEROL (VITAMIN D3) 5,000 units PO BID Qty: 0 estradiol 10 mcg tablet 10 mcg vaginal 2XW Qty: 90 3RF Rx Instructions: Insert 1 tablet vaginally 2 times per week. azelastine-fluticasone 137-50 mcg/spray spray,non-aerosol 1 spray intranasal BID Rx Instructions: administer into each nostril cholecalciferol (vitamin D3) 10 mcg (400 unit) capsule 10 mcg PO DAILY Gemtesa 75 mg tablet 75 mg PO DAILY Qty: 90 3RF anastrozole [Arimidex] 1 mg tablet 1 mg PO DAILY magnesium 200 mg tablet 200 mg PO DAILY amlodipine 5 mg tablet 1.5 mg PO DAILY levothyroxine [Synthroid] 88 mcg tablet 88 mcg PO DAILY Referrals: Barb Barnes PA-C [Primary Care Provider, Medical] Stand Alone Forms: Patient Portal/API
[2025-05-13 16:40] VITALS: RESP 20; TEMP 36.4; O2SAT 97
[2025-05-13 16:41] VITALS: BP 165/77; PULSE 63; O2SAT 99
[2025-05-13 17:00] VITALS: BP 164/78; PULSE 63; O2SAT 99
== END 2025-05-13 17:22 | disposition home or self-care (01) ==
PROVIDERS: Emergency Provider Emergency Medicine; Family Provider Internal Medicine; PCP Physician Assistant
DX: R22.43 Localized swelling, mass and lump, lower limb, bilateral (principal); R79.89 Other specified abnormal findings of blood chemistry
CPT/HCPCS: 93970; 99281; 99283

== ENCOUNTER → 2025-06-10 14:12 | Outpatient (CLI) | payer MEDICARE, SELFPAY ==
--- NOTE | 2025-06-10 14:13 | DI.RAD.S_ITS ---
PROCEDURE: XR THORACIC SPINE 3V INDICATIONS: RIB PAIN TECHNIQUE: 3 views of the thoracic spine were acquired. COMPARISON: [facility], , XR THORACIC SPINE 2V, 10/31/2022, 12:52. FINDINGS: Bones: No fractures or dislocations. Moderate kyphosis centered at approximately T7-8 level unchanged from prior study. Spondylitic changes are noted throughout thoracic spine. No suspicious bony lesions. 12 pairs of ribs are noted, and appear intact where visualized. Soft tissues: No paravertebral stripe thickening. IMPRESSION: Moderate kyphosis. [id number] spondylitic changes throughout thoracic spine. No acute compression fracture or spondylolisthesis. Dictated by: Elio Martinez M.D. on 06/10/2025 at 14:51 Approved by: Elio Martinez M.D. on 06/10/2025 at 14:52
== END ==
PROVIDERS: Family Provider Internal Medicine; PCP Physician Assistant; Referring Provider Physical Medicine & Rehabilitation; Visit Provider Physical Medicine & Rehabilitation
DX: R07.81 Pleurodynia (principal); M40.204 Unspecified kyphosis, thoracic region; M89.9 Disorder of bone, unspecified
CPT/HCPCS: 72072

== ENCOUNTER → 2025-06-20 15:08 | Outpatient (CLI) | payer MEDICARE, SELFPAY ==
--- NOTE | 2025-06-20 15:08 | DI.CT.S_ITS ---
PROCEDURE: CT LUMBAR SPINE WO CON INDICATIONS: Lumbar stenosis TECHNIQUE: Noncontrast 3 mm thick sections acquired from the T12 level to the sacrum. Sagittal and coronal reformats were constructed. For radiation dose reduction, the following was used: automated exposure control. COMPARISON: None. FINDINGS: Image quality: Excellent. Bones: Mild dextrocurvature. Multilevel degenerative changes with disc height loss, vacuum disc phenomenon, osteophytosis and facet arthropathy. Disc height loss is most pronounced at L4-5. Mild central canal stenosis at L3-L4 and likely moderate central canal stenosis at L4-5. Mild neural foraminal stenosis on the right at L4-5 and L5-S1. No acute vertebral body compression fractures. No suspicious lytic or blastic bony lesions. No pars defects. Decreased osseous mineralization. Soft tissues: No retroperitoneal masses or hematomas. Visualized aorta is normal in caliber. Atherosclerotic vascular calcifications. Diverticulosis within the visualized colon. IMPRESSION: Multilevel degenerative changes of the lumbar spine as described above. Likely moderate central canal stenosis at L4-5. Mild right neural foraminal stenosis at L4-5 and L5-S1. No significant neural foraminal stenosis elsewhere. Dictated by: Dmitry Handy M.D. on 06/20/2025 at 16:16 Approved by: Dmitry Handy M.D. on 06/20/2025 at 16:20
== END ==
LOC: CT 15:08
PROVIDERS: PCP Physician Assistant; Referring Provider Physical Medicine & Rehabilitation; Visit Provider Physical Medicine & Rehabilitation
DX: M48.062 Spinal stenosis, lumbar region with neurogenic claudication (principal); M47.816 Spondylosis without myelopathy or radiculopathy, lumbar region; M48.07 Spinal stenosis, lumbosacral region; I70.90 Unspecified atherosclerosis; K57.30 Diverticulosis of large intestine without perforation or abscess without bleeding
CPT/HCPCS: 72131